=== PATIENT | female | born 1955 | race African-American/Black ===

== ENCOUNTER 2016-10-07 18:48 | Inpatient (IN) | payer MEDICARE, OTHER ==
[~2016-10-07] VITALS: Ht 165.1 cm; Wt 85.0 kg
[2016-10-07] VITALS (8 sets, daily range): BP systolic 74–126; BP diastolic 42–84; PULSE 62–76; RESP 16–20; TEMP 97.8–98.8; O2SAT 95–99
[2016-10-07] MEDS ORDERED: BENA25TA3 PO (19:17)
[2016-10-07] MEDS ORDERED: ASCOPOW5 (19:17)
[2016-10-07] MEDS ORDERED: FOLI5CAP PO (19:17)
[2016-10-07] MEDS ORDERED: MIRA33504 PO (19:19)
[2016-10-07] MEDS ORDERED: COLA100C3 PO (19:19)
[2016-10-07] MEDS ORDERED: FERR1TAB21 PO (19:19)
[2016-10-07] MEDS ORDERED: THERM PO (19:19)
[2016-10-07] MEDS ORDERED: SODIUM CHLOR 0.9% 1000 ML INJ 1,000 ML IV ONE (19:19)
[2016-10-07] MEDS ORDERED: OSCA200T PO (19:19)
[2016-10-07] MEDS ORDERED: SODIUM CHLORIDE 0.9% FLUSH 5 ML FLUSH IVF PRN (19:30)
--- NOTE | 2016-10-07 19:34 | PD ---
HPI Chief Complaint: Seizure Time Seen by Provider: 19:03 Travel History International Travel<30 days: No Contact w/Intl Traveler<30days: No Traveled to known affect area: No History of Present Illness HPI The patient 61 years old and arrives with an at home health technical healthcare consultant who the patient lives with. The patient was brought to the ER due to apparent syncope episodes. The patient stands up he becomes lightheaded and falls to the ground. Three episodes occurred a few days ago and have become more frequent with at least 6 falls occurring today according to the healthcare assistant professor of philosophy. The patient states she feels lightheaded as if she is going to lose consciousness immediately prior to each loss of consciousness associated with fall. She denies pain in the extremities hips knees and is ambulatory in ER. The patient will lay on the ground for a few seconds before waking up and then she is able to stand on her own. There is no history of epilepsy. Blood pressure measurements at home were markedly decreased However the baseline measurements reported as normal according to the health technical healthcare consultant. The patient offers no specific complaints in the ER at the moment. About 5 days prior she was discharged from a hospital in [place] following an inpatient admission for 1 year due to schizophrenia. There has been no change in medication. Pt denies SI/HI. PFSH Past Medical History ?: Not Social History Tobacco Use: No (quit smoking one year prior) Allergies-Medications (Allergen,Severity, Reaction): Coded Allergies: Penicillin (Verified Allergy, Intermediate, HIVES, 10/07/16) Reported Meds & Prescriptions Reported Meds & Active Scripts Active Reported Miralax Powder (Polyethylene Glycol 3350 Powder) 17 Gm Powd 17 Gm PO DAILY Mix and dissolve one measuring cap-ful (17 grams) in water or juice. Thera M Plus (Multivitamins/Minerals Therapeutic) 1 Tab 1 Tab PO DAILY Colace (Docusate Sodium) 100 Mg Cap 100 Mg PO DAILY Oscal 500/200 D-3 (Calcium Carbonate-Vitamin D) 500-200 Mg-Unit Tab 1 Tab PO BID Fergon (Ferrous Gluconate) 240 Mg Tab 324 Mg PO DAILY Take on an empty stomach 1 hr before or 2 hr after meals Ascorbic Acid (Ascorbic Acid (Bulk)) 1 Pow Pow 500 Mg .ROUTE Folic Acid 5 Mg Cap 1 Mg PO DAILY Benadryl Allergy (Diphenhydramine HCl) 25 Mg Tab 50 Mg PO Q6H PRN Review of Systems Except as stated in HPI: all other systems reviewed are Neg General / Constitutional: No: Fever, Chills Cardiovascular: No: Chest Pain or Discomfort, Palpitations, Diaphoresis Respiratory: No: Shortness of Breath Gastrointestinal: Positive: Constipation (chronic constipation), No: Nausea, Vomiting, Abdominal Pain Psychiatric: Positive: Other (hx schizophrenia) Physical Exam Narrative GENERAL: 61 Year-old female well-nourished well-developed, affect somewhat flat , alert and oriented 4 SKIN: Warm and dry. HEAD: Atraumatic. Normocephalic. EYES: Pupils equal and round. No scleral icterus. No injection or drainage. ENT: No nasal bleeding or discharge. Mucous membranes pink and moist. NECK: Trachea midline. No JVD. CARDIOVASCULAR: Regular rate and rhythm. No murmur appreciated. RESPIRATORY: No accessory muscle use. Clear to auscultation. Breath sounds equal bilaterally. GASTROINTESTINAL: Abdomen soft, non-tender, nondistended. Hepatic and splenic margins not palpable. MUSCULOSKELETAL: No obvious deformities. No clubbing. No cyanosis. No edema. NEUROLOGICAL: AOx4. CN III-XII normal. Motor function 5/5 throughout. Normal speech memory and mentation. PSYCHIATRIC: Cooperative. Affect is flat. No SI/HI. Data Data Last Documented VS Vital Signs Date Time Temp Pulse Resp B/P Pulse Ox O2 Delivery O2 Flow Rate FiO2 10/07/16 21:19 68 18 90/58 99 Room Air 10/07/16 19:09 98.8 Orders Electrocardiogram (10/07/16 19:19) Basic Metabolic Panel (Bmp) (10/07/16 19:19) Complete Blood Count With Diff (10/07/16 19:19) Magnesium (Mg) (10/07/16 19:19) Urinalysis - C+S If Indicated (10/07/16 19:19) Chest, Single Ap (10/07/16 19:19) Ct Brain W/O Iv Contrast(Rout) (10/07/16 19:19) Ecg Monitoring (10/07/16 19:19) Iv Access Insert/Monitor (10/07/16 19:19) Oximetry (10/07/16 19:19) Sodium Chloride 0.9% Flush (Ns Flush) (10/07/16 19:30) Sodium Chlor 0.9% 1000 Ml Inj (Ns 1000 M (10/07/16 19:19) Orthostatic Vital Signs (10/07/16 19:19) Admit Order (Ed Use Only) (10/07/16 21:16) Echo 2d Comp W/Dopp(Routine) (10/07/16 ) Place In Observation (10/07/16 ) Vital Signs (Adult) Q4H (10/07/16 21:17) Activity Oob With Assistance (10/07/16 21:17) Gold Stamper / Telemetry .CONTINUOUS (10/07/16 21:17) Intake + Output JENNIFER.QSHIFT (10/07/16 21:17) Diet Regular Basic (10/08/16 Breakfast) Sodium Chlor 0.9% 1000 Ml Inj (Ns 1000 M (10/07/16 21:17) Sodium Chloride 0.9% Flush (Ns Flush) (10/07/16 21:30) Sodium Chloride 0.9% Flush (Ns Flush) (10/08/16 09:00) Ondansetron Inj (Zofran Inj) (10/07/16 21:30) Bisacodyl Supp (Dulcolax Supp) (10/07/16 21:30) Comprehensive Metabolic Panel (10/08/16 06:00) Complete Blood Count With Diff (10/08/16 06:00) Troponin I (10/08/16 00:00) Troponin I (10/08/16 06:00) Pt Request For Service (10/07/16 21:17) Scd Bilateral/Knee High JENNIFER.BID (10/07/16 21:17) Mario Bilateral/Knee High JENNIFER.QSHIFT (10/07/16 21:17) Acetaminophen (Tylenol) (10/07/16 21:30) Labs Laboratory Tests Test 10/07/16 19:50 White Blood Count 6.0 TH/MM3 Red Blood Count 3.85 MIL/MM3 Hemoglobin 10.0 GM/DL Hematocrit 30.2 % Mean Corpuscular Volume 78.5 FL Mean Corpuscular Hemoglobin 26.0 PG Mean Corpuscular Hemoglobin 33.1 % Concent Red Cell Distribution Width 15.9 % Platelet Count 234 TH/MM3 Mean Platelet Volume 8.8 FL Neutrophils (%) (Auto) 64.0 % Lymphocytes (%) (Auto) 26.8 % Monocytes (%) (Auto) 8.3 % Eosinophils (%) (Auto) 0.2 % Basophils (%) (Auto) 0.7 % Neutrophils # (Auto) 3.9 TH/MM3 Lymphocytes # (Auto) 1.6 TH/MM3 Monocytes # (Auto) 0.5 TH/MM3 Eosinophils # (Auto) 0.0 TH/MM3 Basophils # (Auto) 0.0 TH/MM3 CBC Comment DIFF FINAL Differential Comment Sodium Level 142 MEQ/L Potassium Level 3.9 MEQ/L Chloride Level 109 MEQ/L Carbon Dioxide Level 26.6 MEQ/L Anion Gap 6 MEQ/L Blood Urea Nitrogen 25 MG/DL Creatinine 1.45 MG/DL Estimat Glomerular Filtration 37 ML/MIN Rate Random Glucose 132 MG/DL Calcium Level 8.7 MG/DL Magnesium Level 2.0 MG/DL MDM Medical Decision Making Medical Screen Exam Complete: Yes Emergency Medical Condition: Yes Differential Diagnosis Arrhythmia, dehydration, bradycardia, anemia, electrolyte imbalance, vasovagal events, intracranial hemorrhage Narrative Course CBC & BMP Diagram 10/07/16 19:50 Magnesium 2.0 EKG reveals a rate of 64 with a sinus rhythm normal axis and a NC interval of 226 Last [address] 10/07/161918 Signed Impressions: Service Date/Time: Friday, October 07, 2016 20:30 - CONCLUSION: 1. No evidence of acute hemorrhage or mass effect. 2. Right high frontal encephalomalacia suggesting old infarction. Prior aneurysm procedure with metallic artifact in the supraclinoid region. Brian Morse MD Chest X-Ray 10/07/161918 Signed Impressions: Service Date/Time: Friday, October 07, 2016 20:05 - CONCLUSION: The lungs are clear. Brian Morse MD Orthostatic vital signs were attempted in the ER however the patient was unable to stand for more than about 10 seconds before having to sit down due to lightheadedness. Patient has received 1 L normal saline and at 8:45 PM she is resting in bed with a pulse of 67 and a blood pressure of 86/58. The health halfway assistant professor of philosophy reports the patient's blood pressure is normal at baseline however could not give an exact value for her baseline blood pressure. Pt will be kept for monitoring and further evaluation of hypotension and apparent recurrent syncope episodes. Second liter NS ordered at time of admission. Diagnosis Primary Impression: Syncope and collapse Additional Impression: Hypotension Qualified Code: I95.9 - Hypotension, unspecified hypotension type Admitting Information Admitting Physician Requests: Observation Juvencio Parrish MD Oct 07, 2016 19:34
[2016-10-07 20:13] LABS: AUTOMATED NEUTROPHIL # 3.9 TH/MM3 (1.8-7.7); BASOPHIL % 0.7 % (0.0-2.0); EOSINOPHIL % 0.2 % (0.0-4.0); HEMATOCRIT 30.2 % (35.0-46.0); HEMO FLAGS DIFF FINAL; LYMPH % 26.8 % (9.0-44.0); LYMPHOCYTE # 1.6 TH/MM3 (1.0-4.8); MEAN CELL VOLUME 78.5 FL (80.0-100.0); MEAN CORPUSCULAR HGB CONC 33.1 % (32.0-36.0); MONO % 8.3 % (0.0-8.0); PLATELET COUNT 234 TH/MM3 (150-450); RED BLOOD COUNT 3.85 MIL/MM3 (4.00-5.30); RED CELL DISTRIBUTION WIDTH 15.9 % (11.6-17.2)
[2016-10-07 20:28] LABS: BICARBONATE 26.6 MEQ/L (21.0-32.0); POTASSIUM 3.9 MEQ/L (3.5-5.1)
--- NOTE | 2016-10-07 20:29 | RADRPT ---
EXAM DATE/TIME: 10/07/2016 20:05 [facility] COMPARISON: No previous studies available for comparison. INDICATIONS : Chest discomfort. MEDICAL HISTORY : None. SURGICAL HISTORY : None. ENCOUNTER: Initial ACUITY: 1 day PAIN SCORE: 5/10 LOCATION: Bilateral chest FINDINGS: A single view of the chest demonstrates the lungs to be symmetrically aerated without evidence of mas s, infiltrate or effusion. The cardiomediastinal contours are unremarkable. Osseous structures are intact. CONCLUSION: The lungs are clear. Brian Morse MD on October 07, 2016 at 20:27 Board Certified Radiologist. This report was verified electronically.
--- NOTE | 2016-10-07 20:56 | RADRPT ---
EXAM DATE/TIME: 10/07/2016 20:30 [facility] COMPARISON: No previous studies available for comparison. INDICATIONS : Trauma; possible seizure. RADIATION DOSE: 38.44 CTDIvol (mGy) MEDICAL HISTORY : Schizophrenia, aneurysm clipping SURGICAL HISTORY : Tubal ligation. ENCOUNTER: Initial ACUITY: 1 day PAIN SCALE: Non-responsive LOCATION: cranial TECHNIQUE: Multiple contiguous axial images were obtained of the head. Using automated exposure control and adj ustment of the mA and/or kV according to patient size, radiation dose was kept as low as reasonably a chievable to obtain optimal diagnostic quality images. FINDINGS: CEREBRUM: Metallic artifact in the left supraclinoid region from prior aneurysm procedure. There is a focal ar ea of encephalomalacia in the right mid and high convexity frontal region with ex vacuole enlargement of the frontal horn of the right ventricle. Otherwise, there is good hurtado-white matter differentiat ion in the supratentorial brain. No evidence of acute blood products, midline shift, or extra-axial fluid. POSTERIOR FOSSA: The cerebellum and brainstem are intact. The 4th ventricle is midline. The cerebellopontine angle i s unremarkable. EXTRACRANIAL: The visualized portion of the orbits is intact. SKULL: The calvaria is intact. No evidence of skull fracture. CONCLUSION: 1. No evidence of acute hemorrhage or mass effect. 2. Right high frontal encephalomalacia suggesting old infarction. Prior aneurysm procedure with meta llic artifact in the supraclinoid region. Brian Morse MD on October 07, 2016 at 20:53 Board Certified Radiologist. This report was verified electronically.
--- NOTE | 2016-10-07 21:20 | HHI.HP ---
[facility] Service [facility] Primary Care Physician Unknown Admission Diagnosis Syncope & Collapse, Hypotension Diagnoses: (1) Syncope Diagnosis: Principal (2) Orthostatic hypotension Diagnosis: Principal (3) Renal insufficiency Diagnosis: Principal (4) Schizophrenia Diagnosis: Principal (5) UTI (urinary tract infection) Diagnosis: Principal Travel History International Travel<30 Days: No Contact w/Intl Traveler <30 Da: No Traveled to Known Affected Are: No History of Present Illness This is a 61-year-old female with a PMH of Schizophrenia was brought to the ER by Home Health Yard Inspector with whom the patient lives secondary to multiple falls. History limited at this time as Caretakers unavailable and pt poor historian, however per report, pt recently discharged from [place] after 1yr hospitalization for Schizophrenia to the care of a local Healthcare Instrumentation Tech. Since her time there, pt has had multiple falls and syncopal episodes, 6 falls today alone. Pt without complaints at this time. On arrival , BP 74/42, HR 66, O2 sat 99% on RA, Afebrile. Orthostatic Vital Signs positive , supine BP 111/63, HR 60, sitting BP 86/61, HR 63, standing BP not measurable via cuff. S/p 2L IVF in ER, BP now improved to 126/84, HR 69. WBC normal. Hgb 10.0. Creatinine 1.45, no previous labs for comparison. UA trace LE, mild bacteruria. Review of Systems Other ROS: 14 point review of systems otherwise negative. Past Family Social History Past Medical History PMH: Schizophrenia Past Surgical History PAST SURGICAL HISTORY: Tubal Ligation Allergies: Coded Allergies: Penicillin (Verified Allergy, Intermediate, HIVES, 10/07/16) Family History PAST FAMILY HISTORY: Reviewed. No h/o DM or CAD Social History PAST SOCIAL HISTORY: Negative for alcohol, tobacco or drugs. Physical Exam Vital Signs Vital Signs Date Time Temp Pulse Resp B/P Pulse Ox O2 Delivery O2 Flow Rate FiO2 10/07/16 21:19 68 18 90/58 99 Room Air 10/07/16 19:24 64 18 111/63 63 18 86/61 60 18 10/07/16 19:23 18 96 Room Air 10/07/16 19:19 63 18 98 Room Air 10/07/16 19:09 98.8 62 16 86/54 95 10/07/16 18:53 97.8 66 20 74/42 99 Room Air Physical Exam PE: GENERAL: Very pleasant middle-aged black female in no acute distress, slightly juvenile, smiling, +stutter. HEENT: PERRLA, EOMI. No scleral icterus or conjunctival pallor. No lid lag or facial droop. CARDIOVASCULAR: Regular rate and rhythm. No obvious murmurs to auscultation. No chest tenderness to palpation. RESPIRATORY: No obvious rhonchi or wheezing. Clear to auscultation. Breath sounds equal bilaterally. GASTROINTESTINAL: Abdomen soft, non-tender, nondistended. BS normal. MUSCULOSKELETAL: Extremities without clubbing, cyanosis, or edema. No obvious deformities. NEUROLOGICAL: Awake, alert and oriented x4. No focal neurologic deficits. Moving both upper and lower extremities spontaneously. Laboratory Laboratory Tests Test 10/07/16 19:50 White Blood Count 6.0 Red Blood Count 3.85 Hemoglobin 10.0 Hematocrit 30.2 Mean Corpuscular Volume 78.5 Mean Corpuscular Hemoglobin 26.0 Mean Corpuscular Hemoglobin 33.1 Concent Red Cell Distribution Width 15.9 Platelet Count 234 Mean Platelet Volume 8.8 Neutrophils (%) (Auto) 64.0 Lymphocytes (%) (Auto) 26.8 Monocytes (%) (Auto) 8.3 Eosinophils (%) (Auto) 0.2 Basophils (%) (Auto) 0.7 Neutrophils # (Auto) 3.9 Lymphocytes # (Auto) 1.6 Monocytes # (Auto) 0.5 Eosinophils # (Auto) 0.0 Basophils # (Auto) 0.0 CBC Comment DIFF FINAL Differential Comment Sodium Level 142 Potassium Level 3.9 Chloride Level 109 Carbon Dioxide Level 26.6 Anion Gap 6 Blood Urea Nitrogen 25 Creatinine 1.45 Estimat Glomerular Filtration 37 Rate Random Glucose 132 Calcium Level 8.7 Magnesium Level 2.0 Result Diagram: 10/07/16194910/07/161949 Assessment and Plan Problem List: (1) Syncope ICD Code: R55 Status: Acute (2) Orthostatic hypotension ICD Code: I95.1 Status: Acute (3) Renal insufficiency ICD Code: N28.9 Status: Acute (4) UTI (urinary tract infection) ICD Code: N39.0 Status: Acute (5) Schizophrenia ICD Code: F20.9 Status: Acute Assessment and Plan A/P: 1. Syncope: likely vasovagal secondary to dehydration/orthostatic hypotension. CT Head w/ no acute findings, images reviewed by me. Admit for Observation, place on telemetry. Check Echo. Initial trop negative, check serial cardiac enzymes for trend. 2. Orthostatic Hypotension: +orthostatic vitals signs, secondary to dehydration. s/p 2L IVF w/ significant improvement in BP from 80's systolic, now 126/84, HR 69. Continue w/ IVF. 3. Renal Insufficiency: Creatinine 1.45, no previous labs for comparison, presumably new. IVF, repeat labs in am. 4. UTI: U/a w/ UTI, start IV Cipro, continue w/ IVF. 5. Schizophrenia: Per report, pt recently d/c'd from [place] after 1yr hospitalization for Schizophrenia 5 days ago, currently under the care of local Healthcare Associate. Not on antipsychotic medications per review of home meds. 6. DVT Prophylaxis: SCD/Teds. 7. Social work for d/c planning as needed. 8. Case discussed w/ ER physician at length. Viviana Bonds MD Oct 07, 2016 21:20
[2016-10-07] MEDS: SODIUM CHLOR 0.9% 1000 ML INJ 1,000 ML IV SCH (21:30)
[2016-10-07] MEDS ORDERED: SODIUM CHLORIDE 0.9% FLUSH 5 ML FLUSH FLUSH PRN (21:30)
[2016-10-07] MEDS ORDERED: BISACODYL 10 MG SUPP PR PRN (21:30)
[2016-10-07 23:34] LABS: BACTERIA, URINE OCC /hpf; BLOOD, URINE NEG (NEG); COMMENT (UR) CULT NOT INDICATED; CULTURE IF INDICATED CULT NOT INDICATED; GLUCOSE,URINE NEG (NEG); HYALINE CAST, URINE 1 /lpf (RARE); KETONE, URINE NEG (NEG); MUCUS URINE FEW /lpf (OCC); NITRITE,URINE NEG (NEG); PH, URINE 5.5 (5.0-8.5); SQUAMOUS EPITHELIAL CELL URINE 2 /hpf (0-5); URINE COLOR YELLOW (YELLW/STRAW)
[2016-10-08 03:36] VITALS: BP 106/64; PULSE 80; RESP 19; TEMP 98.2; O2SAT 96
[2016-10-08] MEDS: SODIUM CHLOR 0.9% 1000 ML INJ 1,000 ML IV SCH ×2 (07:17→17:17)
[2016-10-08 07:47] VITALS: BP 122/66; PULSE 69; RESP 17; TEMP 97.7; O2SAT 97
[2016-10-08 08:48] LABS: AUTOMATED NEUTROPHIL # 2.9 TH/MM3 (1.8-7.7); BASOPHIL % 0.7 % (0.0-2.0); EOSINOPHIL % 0.1 % (0.0-4.0); HEMATOCRIT 27.4 % (35.0-46.0); HEMO FLAGS DIFF FINAL; LYMPH % 31.8 % (9.0-44.0); LYMPHOCYTE # 1.6 TH/MM3 (1.0-4.8); MEAN CELL VOLUME 78.1 FL (80.0-100.0); MEAN CORPUSCULAR HEMOGLOBIN 26.5 PG (27.0-34.0); MEAN CORPUSCULAR HGB CONC 33.9 % (32.0-36.0); MONO % 9.9 % (0.0-8.0); NEUT % 57.5 % (16.0-70.0); PLATELET COUNT 213 TH/MM3 (150-450); RED BLOOD COUNT 3.51 MIL/MM3 (4.00-5.30); RED CELL DISTRIBUTION WIDTH 15.8 % (11.6-17.2); WHITE BLOOD COUNT 5.1 TH/MM3 (4.0-11.0)
[2016-10-08] MEDS: SODIUM CHLORIDE 0.9% FLUSH 5 ML FLUSH FLUSH SCH ×2 (09:00→21:00)
[2016-10-08 09:15] LABS: ALKALINE PHOSPHATASE 99 U/L (45-117); ALT (GPT) 16 U/L (10-53); ANION GAP 8 MEQ/L (5-15); AST (GOT) 8 U/L (15-37); BICARBONATE 24.7 MEQ/L (21.0-32.0); BLOOD UREA NITROGEN 16 MG/DL (7-18); CHLORIDE 111 MEQ/L (98-107); GLOMERULAR FILTRATION RATE 63 ML/MIN (>89); POTASSIUM 3.7 MEQ/L (3.5-5.1); SODIUM (NA) 144 MEQ/L (136-145); TOTAL BILIRUBIN ADULT 0.2 MG/DL (0.2-1.0)
--- NOTE | 2016-10-08 10:21 | HHI.PR ---
Subjective Remarks Follow up for multiple falls, dehydration, ALFONSO, possible UTI. The patient has no specific medical complaints. Denies any fevers/chills, headache, lightheadedness, chest pain, shortness of breath, or abdominal pain. She complains of frequent urination however no dysuria or urgency. She has not yet ambulated today. Objective Vitals Vital Signs Date Time Temp Pulse Resp B/P Pulse Ox O2 Delivery O2 Flow Rate FiO2 10/08/16 07:47 97.7 69 17 122/66 97 10/08/16 03:36 98.2 80 19 106/64 96 10/07/16 23:18 98.0 74 18 119/74 97 10/07/16 22:49 76 18 126/84 96 Room Air 10/07/16 22:04 69 18 126/84 96 Room Air 10/07/16 21:19 68 18 90/58 99 Room Air 10/07/16 19:24 64 18 111/63 63 18 86/61 60 18 10/07/16 19:23 18 96 Room Air 10/07/16 19:19 63 18 98 Room Air 10/07/16 19:09 98.8 62 16 86/54 95 10/07/16 18:53 97.8 66 20 74/42 99 Room Air Result Diagram: 10/08/16 0816 10/08/16 0816 Imaging Last Impressions Head CT 10/07/161918 Signed Impressions: Service Date/Time: Friday, October 07, 2016 20:30 - CONCLUSION: 1. No evidence of acute hemorrhage or mass effect. 2. Right high frontal encephalomalacia suggesting old infarction. Prior aneurysm procedure with metallic artifact in the supraclinoid region. Brian Morse MD Chest X-Ray 10/07/161918 Signed Impressions: Service Date/Time: Friday, October 07, 2016 20:05 - CONCLUSION: The lungs are clear. Brian Morse MD Objective Remarks GENERAL: Well-nourished, well-developed pleasant middle aged AA female patient in NAD. SKIN: Warm and dry. No rash. HEAD: Normocephalic. Atraumatic. EYES: Pupils equal and round. No scleral icterus. No injection or drainage. ENT: No nasal bleeding or discharge. Mucous membranes pink and moist. NECK: Supple. Trachea midline. CARDIOVASCULAR: Regular rate and rhythm. S1, S2 noted. No murmur appreciated. RESPIRATORY: No accessory muscle use. Clear to auscultation. Breath sounds equal bilaterally. GASTROINTESTINAL: Abdomen soft, non-tender, nondistended. Normoactive bowel sounds x4. MUSCULOSKELETAL: No obvious deformities. Extremities without clubbing, cyanosis , or edema. NEUROLOGICAL: Awake and alert. No obvious cranial nerve deficits. Motor grossly within normal limits. 5/5 muscle strength in bilateral upper and lower extremities. Normal speech. Medications and IVs Current Medications Medications (Trade) Dose Ordered Sig/Willi Route Start Time Stop Time Status Last Admin (NS 1000 ml Inj) 1,000 ml @ 100 mls/hr Q10H IV 10/07/16 21:17 10/07/16 21:30 (NS Flush) 2 ml UNSCH PRN FLUSH 10/07/16 21:30 (NS Flush) 2 ml BID FLUSH 10/08/16 09:00 (Zofran Inj) 4 mg Q6H PRN IVP 10/07/16 21:30 (Dulcolax Supp) 10 mg DAILY PRN FL 10/07/16 21:30 Acetaminophen 650 mg 650 mg Q6H PRN PO 10/07/16 21:30 (Cipro 400 Mg Premix) 200 ml @ 200 mls/hr Q12H IV 10/09/16 00:00 A/P Problem List: (1) Syncope ICD Code: R55 Status: Acute (2) Orthostatic hypotension ICD Code: I95.1 Status: Acute (3) Renal insufficiency ICD Code: N28.9 Status: Acute (4) UTI (urinary tract infection) ICD Code: N39.0 Status: Acute (5) Schizophrenia ICD Code: F20.9 Status: Acute Assessment and Plan 61-year-old female with a PMH of Schizophrenia was brought to the ER by Home Health Head Host/Hostess with whom the patient lives secondary to multiple falls. Syncope: likely vasovagal secondary to dehydration/orthostatic hypotension. CT Head w/ no acute findings, images reviewed by me. Admit for Observation, monitor on telemetry. Check Echo. ACS ruled out with negative serial cardiac enzymes x2, and EKG without acute ST changes; however EKG does show possible 1st degree AV block, repeat EKG. Orthostatic Hypotension: +orthostatic vitals signs, secondary to dehydration. S /p 2L IVF w/ significant improvement in BP from 80's systolic, now 126/84, HR 69. Continue w/ IVF. Repeat orthostatics. Renal Insufficiency: Creatinine 1.45, no previous labs for comparison, presumably new. IVF, repeat labs today show improvement, Cr 1.08. Avoid nephrotoxins. UTI: U/a w/ UTI, start IV Cipro, continue w/ IVF. Mandatory urine culture ordered. Schizophrenia: Per report, pt recently d/c'd from [place] after 1yr hospitalization for Schizophrenia 5 days ago, currently under the care of local Healthcare Associate. Not on antipsychotic medications per review of home meds. DVT Prophylaxis: SCD/Teds. Written by Stefania Kwong, acting as scribe for Dr. Jean Baptiste on 10/08/16 at 10:19. The documentation accurately reflects the work performed [id number] by me Dr. Jean Baptiste on 10/08/16 at 10:19. Stefania Kwong PA-C Oct 08, 2016 10:21 Ingris Jean Baptiste MD Oct 08, 2016 14:29
[2016-10-08 12:15] VITALS: BP 126/70; PULSE 88; RESP 17; TEMP 98; O2SAT 95
--- NOTE | 2016-10-08 12:26 | EKG ---
Date Performed: 10/07/2016 Time Performed: 19:58:12 PTAGE: 61 years EKG: Sinus rhythm WITH FIRST DEGREE AV BLOCK NONSPECIFIC T-WAVE ABNORMALITY ABNORMAL ECG NO PREVIOUS TRACING DOCTOR: Julián Rojas Interpretating Date/Time 10/08/2016 12:24:59
[2016-10-08 15:24] VITALS: BP_SYST 122; BP_SYST 79; BP_DIAS 59; BP_DIAS 80; PULSE 77; RESP 18; TEMP 98; O2SAT 98
[2016-10-08 20:00] VITALS: BP 137/82; PULSE 71; RESP 18; TEMP 98.2; O2SAT 100
--- NOTE | 2016-10-08 21:05 | EKG ---
Date Performed: 10/08/2016 Time Performed: 17:14:59 PTAGE: 61 years EKG: Sinus rhythm WITH FIRST DEGREE AV BLOCK LOW QRS VOLTAGE IN PRECORDIAL LEADS NONSPECIFIC T-WAVE ABNORMALITY ABNORM AL ECG NO PREVIOUS TRACING DOCTOR: Tad Miller Interpretating Date/Time 10/08/2016 21:04:57
--- NOTE | 2016-10-08 23:01 | EC ---
Study Study Date:10/08/2016 STUDY CONCLUSIONS SUMMARY LEFT VENTRICLE: The cavity size was normal. Wall thickness was normal. Systolic function was normal. The estimated ejection fraction was 55%. Wall motion was normal; there were no regional wall motion abnormalities. If LV function is below 40, please consider prescribing an ACEI or ARB or document rationale for non-use. PROCEDURE DATA STUDY STATUS: Elective. Procedure: Transthoracic echocardiography. Image quality was good. Scanning was performed from the parasternal, apical, and subcostal acoustic windows. Study completion: The patient tolerated the procedure well. Transthoracic echocardiography. M-mode, complete 2D, complete spectral Doppler, and color Doppler. Patient status: Inpatient. CARDIAC ANATOMY LEFT VENTRICLE: The cavity size was normal. Wall thickness was normal. Systolic function was normal. The estimated ejection fraction was 55%. Wall motion was normal; there were no regional wall motion abnormalities. AORTIC VALVE: Trileaflet; normal thickness leaflets. Doppler: Transvalvular velocity was within the normal range. There was no stenosis. No regurgitation. AORTA: Aortic root: The aortic root was normal in size. MITRAL VALVE: Structurally normal valve. Doppler: Transvalvular velocity was within the normal range. There was no evidence for stenosis. No regurgitation. LEFT ATRIUM: The atrium was normal in size. RIGHT VENTRICLE: The cavity size was normal. Wall thickness was normal. PULMONIC VALVE: Doppler: Transvalvular velocity was within the normal range. There was no evidence for stenosis. No regurgitation. TRICUSPID VALVE: Structurally normal valve. Doppler: Transvalvular velocity was within the normal range. Trace regurgitation. PULMONARY ARTERY: The main pulmonary artery was normal-sized. Systolic pressure was within the normal range. RIGHT ATRIUM: The atrium was normal in size. PERICARDIUM: There was no pericardial effusion. SYSTEMIC VEINS: Inferior vena cava: The vessel was normal in size. BASIC MEASUREMENTS ADULT Normal Left ventricle LV internal dimension, ED, chordal level, *41 mm 43-52 PLAX LV posterior wall thickness, ED 7.32 mm IVS/LVPW ratio, ED *1.36 <1.3 Ventricular septum Septal thickness, ED 9.97 mm Aortic valve Leaflet separation 22 mm 15-26 Left atrium Anterior-posterior dimension 36 mm Right ventricle RV internal dimension, ED, PLAX 19.5 mm 19-38 BASIC MEASUREMENTS ADULT Normal Aortic valve Leaflet separation 22 mm 15-26 Aorta Root diameter, ED 34 mm 20-37 Left atrium Anterior-posterior dimension, ES 31 mm 19-40 LA/aortic root ratio 0.91 DOPPLER MEASUREMENTS ADULT Normal Main pulmonary artery Pressure, S 30 mm Hg =30 Mitral valve Peak E-wave velocity 60.7 cm/s Peak A-wave velocity 72.1 cm/s Peak E/A ratio 0.8 Tricuspid valve Regurgitant peak velocity 188 cm/s Peak RV-RA gradient, S 14 mm Hg Maximal regurgitant velocity 188 cm/s Systemic veins Estimated CVP 10 mm Hg Right ventricle RV pressure, S *30 mm Hg <30 LEGEND: Mean values are shown as u=mean value. Asterisk (*) morrison values outside specified normal range. Prepared and signed by Hadley Baldwin [id number]
[2016-10-08 23:24] VITALS: BP_SYST 149; BP_SYST 60; BP_SYST 99; BP_DIAS 40; BP_DIAS 52; BP_DIAS 74
[2016-10-09] VITALS (10 sets, daily range): BP systolic 64–157; BP diastolic 40–96; PULSE 67–78; RESP 17–21; TEMP 97.6–98.8; O2SAT 95–98
[2016-10-09] MEDS: CIPROFLOXACIN 400 MG PREMIX 200 ML IV SCH ×2 (00:29→12:54)
[2016-10-09 11:10] LABS: MEAN CELL VOLUME 78.3 FL (80.0-100.0); MEAN CORPUSCULAR HGB CONC 33.2 % (32.0-36.0); PLATELET COUNT 201 TH/MM3 (150-450); RED BLOOD COUNT 3.45 MIL/MM3 (4.00-5.30); RED CELL DISTRIBUTION WIDTH 15.7 % (11.6-17.2); REVIEW FLAG FINAL
--- NOTE | 2016-10-09 11:15 | HHI.PR ---
Subjective Remarks Follow up for multiple falls with possible syncope. The patient is severely orthostatic. She admits to feeling very lightheaded and weak only upon standing. She feels her legs are also weak. She denies any pain. Denies any headache. She is otherwise feeling well. Denies abdominal pain/nausea/vomiting. Tolerating oral intake. Objective Vitals Vital Signs Date Time Temp Pulse Resp B/P Pulse Ox O2 Delivery O2 Flow Rate FiO2 10/09/16 07:49 98.3 71 19 135/95 97 10/09/16 04:00 97.6 78 18 140/78 98 10/09/16 00:11 98.8 77 21 102/73 98 64/40 10/08/16 23:24 149/74 99/52 60/40 10/08/16 20:00 98.2 71 18 137/82 100 10/08/16 15:24 98.0 77 18 122/59 98 79/80 10/08/16 12:15 98.0 88 17 126/70 95 I/O 10/08/16 10/08/16 10/08/16 10/09/16 10/09/16 10/09/16 07:00 15:00 23:00 07:00 15:00 23:00 Intake Total 1300 ml Balance 1300 ml Intake Oral 800 ml IV Total 500 ml # Voids 1 6 # Bowel Movements 0 Result Diagram: 10/09/16 1056 10/08/16 0816 Imaging Last Impressions Head CT 10/07/161918 Signed Impressions: Service Date/Time: Friday, October 07, 2016 20:30 - CONCLUSION: 1. No evidence of acute hemorrhage or mass effect. 2. Right high frontal encephalomalacia suggesting old infarction. Prior aneurysm procedure with metallic artifact in the supraclinoid region. Brian Morse MD Chest X-Ray 10/07/161918 Signed Impressions: Service Date/Time: Friday, October 07, 2016 20:05 - CONCLUSION: The lungs are clear. Brian Morse MD Objective Remarks GENERAL: Well-nourished, well-developed pleasant middle aged AA female patient in [facility]. SKIN: Warm and dry. No rash. HEAD: Normocephalic. Atraumatic. EYES: Pupils equal and round. No scleral icterus. No injection or drainage. ENT: No nasal bleeding or discharge. Mucous membranes pink and moist. NECK: Supple. Trachea midline. CARDIOVASCULAR: Regular rate and rhythm. S1, S2 noted. No murmur appreciated. RESPIRATORY: No accessory muscle use. Clear to auscultation. Breath sounds equal bilaterally. GASTROINTESTINAL: Abdomen soft, non-tender, nondistended. Normoactive bowel sounds x4. MUSCULOSKELETAL: No obvious deformities. Extremities without clubbing, cyanosis , or edema. NEUROLOGICAL: Awake and alert. No obvious cranial nerve deficits. Motor grossly within normal limits. 5/5 muscle strength in bilateral upper and lower extremities. Normal speech. Medications and IVs Current Medications Medications (Trade) Dose Ordered Sig/Willi Route Start Time Stop Time Status Last Admin (NS 1000 ml Inj) 1,000 ml @ 100 mls/hr Q10H IV 10/07/16 21:17 10/08/16 17:17 (NS Flush) 2 ml UNSCH PRN FLUSH 10/07/16 21:30 (NS Flush) 2 ml BID FLUSH 10/08/16 09:00 (Zofran Inj) 4 mg Q6H PRN IVP 10/07/16 21:30 (Dulcolax Supp) 10 mg DAILY PRN IN 10/07/16 21:30 Acetaminophen 650 mg 650 mg Q6H PRN PO 10/07/16 21:30 (Cipro 400 Mg Premix) 200 ml @ 200 mls/hr Q12H IV 10/09/16 00:00 10/09/16 00:29 (Proamatine) 5 mg TID@07,12,17 PO 10/09/16 12:00 Urinary Catheter: No Vascular Central Line Catheter: No A/P Problem List: (1) Syncope ICD Code: R55 Status: Acute (2) Orthostatic hypotension ICD Code: I95.1 Status: Acute (3) Renal insufficiency ICD Code: N28.9 Status: Acute (4) UTI (urinary tract infection) ICD Code: N39.0 Status: Acute (5) Schizophrenia ICD Code: F20.9 Status: Acute Assessment and Plan 61-year-old female with a PMH of Schizophrenia was brought to the ER by Home Health Medical Support Specialist with whom the patient lives secondary to multiple falls. Syncope: likely vasovagal with dehydration and severe orthostatic hypotension. CT Head w/ no acute findings, images reviewed by me. Admit for Observation, monitor on telemetry. Echo unremarkable, EF 55%. ACS ruled out with negative serial cardiac enzymes x2, and EKG without acute ST changes. Severe Orthostatic Hypotension: +orthostatic vitals signs. S/p 2L IVF w/ significant improvement in BP from 80's systolic, now 126/84, HR 69. Continue w / IVF. Repeat orthostatics still with significant BP drop upon standing. Started on Midodrine. Continue yisel hose. 1st Degree AV Block: EKG does show 1st degree AV block, since symptoms more likely related to orthostatic hypotension, will continue to treat hypotension and if still symptomatic, consider cardiology consult for pacemaker. Renal Insufficiency: Creatinine 1.45, no previous labs for comparison, presumably new. IVF, repeat labs today show improvement, Cr 1.08. Avoid nephrotoxins. UTI: U/a w/ UTI, start IV Cipro, change to po Cipro today. Mandatory urine culture ordered. Schizophrenia: Per report, pt recently d/c'd from [place] after 1yr hospitalization for Schizophrenia 5 days ago, currently under the care of local Healthcare Associate. Not on antipsychotic medications per review of home meds. Patient calm and pleasant throughout admission. DVT Prophylaxis: SCD/Teds. Written by Stefania Kwong, acting as scribe for Dr. Jean Baptiste on 10/09/16 at 11:15. The documentation accurately reflects the work performed [id number] by me Dr. Jean Baptiste on 10/09/16 at 11:15. Stefania Kwong PA-C Oct 09, 2016 11:15 Ingris Jean Baptiste MD Oct 09, 2016 14:57
[2016-10-09 11:29] LABS: BICARBONATE 26.1 MEQ/L (21.0-32.0); POTASSIUM 3.9 MEQ/L (3.5-5.1)
[2016-10-09] MEDS: MIDODRINE 5 MG TAB PO SCH ×2 (12:53→17:29)
[2016-10-09] MEDS: SODIUM CHLORIDE 0.9% FLUSH 5 ML FLUSH FLUSH SCH ×2 (12:54→20:32)
[2016-10-09] MEDS: SODIUM CHLOR 0.9% 1000 ML INJ 1,000 ML IV SCH ×3 (12:54→23:17)
[2016-10-10 02:05] LABS: BICARBONATE 27.1 MEQ/L (21.0-32.0); MAGNESIUM 1.5 MG/DL (1.5-2.5); POTASSIUM 3.5 MEQ/L (3.5-5.1)
[2016-10-10 06:09] VITALS: PULSE 64; RESP 18; TEMP 98.5; O2SAT 98
[2016-10-10] MEDS: MIDODRINE 5 MG TAB PO SCH ×3 (07:24→17:34)
[2016-10-10] MEDS: SODIUM CHLORIDE 0.9% FLUSH 5 ML FLUSH FLUSH SCH ×2 (07:24→20:23)
[2016-10-10 08:00] VITALS: PULSE 64
[2016-10-10 08:25] VITALS: BP_SYST 113; BP_SYST 114; BP_DIAS 52; BP_DIAS 90; PULSE 66; RESP 18; TEMP 98.2; O2SAT 96
--- NOTE | 2016-10-10 09:33 | HHI.PR ---
Subjective Remarks Follow-up orthostatic hypotension. The patient is sitting up in bed eating breakfast. She denies any lightheadedness at this time. Does report some episodes of lightheadedness. She denies any headache or vision changes. She denies any chest pain, shortness breath, nausea, vomiting. Objective Vitals Vital Signs Date Time Temp Pulse Resp B/P Pulse Ox O2 Delivery O2 Flow Rate FiO2 10/10/16 08:25 98.2 66 18 113/52 96 114/90 10/10/16 06:09 98.5 64 18 98 10/09/16 23:17 98.7 69 18 157/93 98 10/09/16 20:02 67 10/09/16 19:41 98.7 73 18 136/96 98 10/09/16 15:41 98.3 73 17 130/75 96 10/09/16 15:00 73 10/09/16 14:03 70 10/09/16 12:09 98.4 71 18 122/78 95 72/49 83/42 Result Diagram: 10/09/16 1056 10/10/16 0132 Imaging Last Impressions Head CT 10/07/161918 Signed Impressions: Service Date/Time: Friday, October 07, 2016 20:30 - CONCLUSION: 1. No evidence of acute hemorrhage or mass effect. 2. Right high frontal encephalomalacia suggesting old infarction. Prior aneurysm procedure with metallic artifact in the supraclinoid region. Brian Morse MD Chest X-Ray 10/07/161918 Signed Impressions: Service Date/Time: Friday, October 07, 2016 20:05 - CONCLUSION: The lungs are clear. Brian Morse MD Objective Remarks GENERAL: Well-developed well-nourished. In no acute distress. Sitting up eating breakfast. SKIN: Warm and dry. No lesions noted. HEENT: Normocephalic. Pupils equal and round. Mucous membranes pink and moist. CARDIOVASCULAR: Regular rate and rhythm. No murmur appreciated. RESPIRATORY: No accessory muscle use. Clear to auscultation. Breath sounds equal bilaterally. GASTROINTESTINAL: Abdomen soft, non-tender, nondistended. Bowel sounds x4. MUSCULOSKELETAL: No obvious deformities. No clubbing or cyanosis. No edema. NEUROLOGICAL: Awake and alert. No focal neurological deficits. Moves upper and lower extremities spontaneously. Normal speech. PSYCHIATRIC: Guarded mood and affect; insight and judgment fair to normal. A/P Problem List: (1) Syncope ICD Code: R55 Status: Acute (2) Orthostatic hypotension ICD Code: I95.1 Status: Acute (3) Renal insufficiency ICD Code: N28.9 Status: Acute (4) UTI (urinary tract infection) ICD Code: N39.0 Status: Acute (5) Schizophrenia ICD Code: F20.9 Status: Chronic Assessment and Plan 61-year-old female with a PMH of Schizophrenia was brought to the ER by Home Health Service Manager with whom the patient lives secondary to multiple falls. Syncope: likely vasovagal with dehydration and severe orthostatic hypotension as below. CT Head w/ no acute findings. Echo unremarkable, EF 55%. ACS ruled out with negative serial cardiac enzymes x2, and EKG without acute ST changes. PT recommends HHC vs SNF, will ambulate patient again when orthostatics improved. Severe Orthostatic Hypotension: +orthostatic vitals signs, dropping to systolic 60s. Continue w/ IVF. Repeat orthostatics still with significant BP drop upon standing. Started on Midodrine, BP is improving. MAURO lewis. 1st Degree AV Block: EKG does show 1st degree AV block, since symptoms more likely related to orthostatic hypotension, however if the patient remains symptomatic after treatment, consider cardiology consult for pacemaker. ALFONSO: Creatinine 1.45, no previous labs for comparison. Given IVF, repeat labs show improvement, Cr 1.08. Avoid nephrotoxins. UTI: U/a w/ UTI, started IV Cipro, changed to po. Mandatory urine culture ordered and pending. Schizophrenia: Per report, pt recently d/c'd from [place] after 1yr hospitalization for Schizophrenia 5 days ago, currently under the care of local Healthcare Associate. Not on antipsychotic medications per review of home meds. Patient calm and pleasant throughout admission. DVT Prophylaxis: SCD/Teds. Written by James Worthy, acting as scribe for Dr. Jean Baptiste on 10/10/16 at 09:33. The documentation accurately reflects the work performed [id number] by me Dr. Jean Baptiste on 10/10/16 at 09:33. Discharge Planning Possible DC with HHC if symptoms continue to improve. James Worthy Oct 10, 2016 09:33 Ingris Jean Baptiste MD Oct 10, 2016 14:02
[2016-10-10 11:25] VITALS: BP 125/78; PULSE 67; RESP 18; TEMP 98.2; O2SAT 96
[2016-10-10] MEDS: SODIUM CHLOR 0.9% 1000 ML INJ 1,000 ML IV SCH ×2 (11:40→19:17)
[2016-10-10] MEDS: CIPROFLOXACIN 400 MG PREMIX 200 ML IV SCH ×2 (11:40)
--- NOTE | 2016-10-10 14:48 | EKG ---
Date Performed: 10/09/2016 Time Performed: 23:11:47 PTAGE: 61 years EKG: Sinus rhythm WITH FIRST DEGREE AV BLOCK NONSPECIFIC T-WAVE ABNORMALITY ABNORMAL ECG Tremor artifact in precordial leads but I cannot entirely exclude atrial flutter. Repeat tracing is advised. Except for what I arben pect is artifact there has been no serial change since the prior tracing. PREVIOUS TRACING : 10/08/2016 17.14 DOCTOR: Layne Pena Interpretating Date/Time 10/10/2016 14:47:38
[2016-10-10 15:00] VITALS: PULSE 68
[2016-10-10 15:38] VITALS: BP 98/77; PULSE 87; RESP 18; TEMP 98.2; O2SAT 94
[2016-10-11] MEDS: CIPROFLOXACIN 400 MG PREMIX 200 ML IV SCH
[2016-10-11 04:00] VITALS: BP 133/65; PULSE 99; RESP 18; TEMP 97.9; O2SAT 93
[2016-10-11] MEDS: SODIUM CHLOR 0.9% 1000 ML INJ 1,000 ML IV SCH ×3 (04:32→22:20)
[2016-10-11] MEDS: MIDODRINE 5 MG TAB PO SCH ×3 (06:05→19:42)
[2016-10-11 08:04] VITALS: BP_SYST 123; BP_SYST 133; BP_DIAS 60; BP_DIAS 70; RESP 20; O2SAT 96
[2016-10-11] MEDS: SODIUM CHLORIDE 0.9% FLUSH 5 ML FLUSH FLUSH SCH ×2 (09:03→22:17)
--- NOTE | 2016-10-11 10:32 | HHI.PR ---
Subjective Remarks Follow-up for orthostatic dizziness. The patient tried to get out of bed with the nurse yesterday, but was unsteady from dizziness. She states that she is dizzy whenever she tries to sit or stand, including sitting up in bed to eat. When lying flat she denies any symptoms. She denies any vision changes. Objective Vitals Vital Signs Date Time Temp Pulse Resp B/P Pulse Ox O2 Delivery O2 Flow Rate FiO2 10/11/16 08:04 20 123/70 96 133/60 10/11/16 04:00 97.9 99 18 133/65 93 10/10/16 15:38 98.2 87 18 98/77 94 10/10/16 15:00 68 10/10/16 11:25 98.2 67 18 125/78 96 Result Diagram: 10/09/16 1056 10/10/16 0132 Imaging Last Impressions Head CT 10/07/161918 Signed Impressions: Service Date/Time: Friday, October 07, 2016 20:30 - CONCLUSION: 1. No evidence of acute hemorrhage or mass effect. 2. Right high frontal encephalomalacia suggesting old infarction. Prior aneurysm procedure with metallic artifact in the supraclinoid region. Brian Morse MD Chest X-Ray 10/07/161918 Signed Impressions: Service Date/Time: Friday, October 07, 2016 20:05 - CONCLUSION: The lungs are clear. Brian Morse MD Objective Remarks GENERAL: Well-developed well-nourished. In no acute distress. SKIN: Warm and dry. No lesions noted. HEENT: Normocephalic. Pupils equal and round. EOMs intact. Mucous membranes pink and moist. CARDIOVASCULAR: Regular rate and rhythm. No murmur appreciated. RESPIRATORY: No accessory muscle use. Clear to auscultation. Breath sounds equal bilaterally. GASTROINTESTINAL: Abdomen soft, non-tender, nondistended. Bowel sounds x4. MUSCULOSKELETAL: No obvious deformities. No clubbing or cyanosis. No edema. NEUROLOGICAL: Awake and alert. No focal neurological deficits. Moves upper and lower extremities spontaneously. Normal speech. Strength 5/5. PSYCHIATRIC: Pleasant mood and slightly guarded affect; insight and judgment fair to normal. A/P Problem List: (1) Syncope ICD Code: R55 Status: Acute (2) Orthostatic hypotension ICD Code: I95.1 Status: Acute (3) Renal insufficiency ICD Code: N28.9 Status: Acute (4) Schizophrenia ICD Code: F20.9 Status: Chronic Assessment and Plan 61-year-old female with a PMH of Schizophrenia was brought to the ER by Home Health Cabinetmaker Supervisor with whom the patient lives secondary to multiple falls. Syncope: likely vasovagal with dehydration and severe orthostatic hypotension as below. CT Head showed no acute findings, right high frontal encephalomalacia , prior aneurysm procedure with metallic artifact. Echo unremarkable, EF 55%. ACS ruled out with negative serial cardiac enzymes x2, and EKG without acute ST changes. PT recommends HHC vs SNF, will ambulate patient again when orthostatics improved. Check carotid ultrasound and Holter with continued symptoms. Unable to perform MRI with aneurysm clip. If workup remains negative and patient remains symptomatic, consider neurology consultation Severe Orthostatic Hypotension: +orthostatic vitals signs, dropping to systolic 60s. Increase IVF. Repeat orthostatics still with significant BP drop upon standing. Started on Midodrine, still symptomatic, increased dose. MAURO hose. 1st Degree AV Block: EKG does show 1st degree AV block, since symptoms more likely related to orthostatic hypotension, however if the patient remains symptomatic after treatment, consider cardiology consult for pacemaker. ALFONSO: Creatinine 1.45, no previous labs for comparison. Given IVF, repeat labs show improvement, Cr 1.08. Avoid nephrotoxins. UTI: U/a w/ evidence of UTI, however urine culture with mixed growth. DC IV Cipro. Schizophrenia: Per report, pt recently d/c'd from [place] after 1yr hospitalization for Schizophrenia 5 days ago, currently under the care of local Healthcare Associate. Not on antipsychotic medications per review of home meds. Patient calm and pleasant throughout admission. DVT Prophylaxis: SCD/Teds. Written by James Worthy, acting as scribe for Dr. Jean Baptiste on 10/11/16 at 10:31. The documentation accurately reflects the work performed [id number] by me Dr. Jean Baptiste on 10/11/16 at 10:31. Discharge Planning Disposition pending further clinical improvement. Patient is still not able to get out of bed and ambulate secondary to symptoms. James Worthy Oct 11, 2016 10:31 Ingrsi Jean Baptiste MD Oct 11, 2016 13:15
[2016-10-11 11:46] VITALS: BP 118/69; PULSE 68; RESP 18; TEMP 98; O2SAT 96
--- NOTE | 2016-10-11 12:42 | RADRPT ---
EXAM DATE/TIME: 10/11/2016 10:51 [facility] COMPARISON: No previous studies available for comparison. INDICATIONS : Syncope. MEDICAL HISTORY : Schizophrenia. SURGICAL HISTORY : Tubal ligation. ENCOUNTER: Initial ACUITY: 1 day PAIN SCORE: 0/10 LOCATION: Bilateral neck PEAK SYSTOLIC VELOCITIES (cm/sec): ICA/CCA RATIO: Right: 1.2 Left: 0.7 ICA: Right: 68 Left: 69 CCA: Right: 55 Left: 70 ECA: Right: 68 Left: 117 VERTEBRAL: Right: 38 antegrade Left: 46 antegrade Elevated flow velocities and ICA/CCA ratios have been found to correlate with increased degrees of vessel stenosis, calculated as percentage of diameter relative to a normal segment of distal ICA/CCA FINDINGS: RIGHT CAROTID: No significant stenosis is visualized. The waveforms are within normal limits. LEFT CAROTID: No significant stenosis is visualized. The waveforms are within normal limits. VERTEBRAL ARTERIES: Antegrade flow is seen in both vertebral arteries. MISCELLANEOUS: None. CONCLUSION: 1. Mild visible plaque in the carotid arteries bilaterally. No hemodynamically significant stenosis i dentified. Vertebral artery flow antegrade bilaterally. Gordo Gibson MD on October 11, 2016 at 12:38 Board Certified Radiologist. This report was verified electronically.
[2016-10-11 17:44] VITALS: BP 121/68; PULSE 77; RESP 21; TEMP 98; O2SAT 98
[2016-10-11 20:16] VITALS: BP 132/76; PULSE 82; RESP 18; TEMP 98.5; O2SAT 95
[2016-10-12 00:50] VITALS: BP 132/77; PULSE 70; RESP 16; O2SAT 95
[2016-10-12] MEDS: MIDODRINE 5 MG TAB PO SCH ×3 (06:17→17:04)
[2016-10-12 06:22] VITALS: BP 123/76; PULSE 67; RESP 17; TEMP 98.1; O2SAT 93
[2016-10-12] MEDS: SODIUM CHLOR 0.9% 1000 ML INJ 1,000 ML IV SCH ×3 (06:26→21:18)
[2016-10-12 10:07] VITALS: BP_SYST 141; BP_SYST 73; BP_DIAS 48; BP_DIAS 88; PULSE 68; RESP 18; O2SAT 93
--- NOTE | 2016-10-12 11:17 | HHI.PR ---
Subjective Remarks Follow up for frequent falls, orthostatic hypotension. The patient currently denies any dizziness while lying in bed however last night when she tried to stand up, she became dizzy and fell to the floor. She states her legs feel weak upon standing. Denies any headache, chest pain, shortness of breath. She has no other medical complaints at this time. Objective Vitals Vital Signs Date Time Temp Pulse Resp B/P Pulse Ox O2 Delivery O2 Flow Rate FiO2 10/12/16 10:07 68 18 141/88 93 73/48 10/12/16 06:22 98.1 67 17 123/76 93 10/12/16 00:50 70 16 132/77 95 10/11/16 20:16 98.5 82 18 132/76 95 10/11/16 17:44 98.0 77 21 121/68 98 10/11/16 11:46 98.0 68 18 118/69 96 I/O 10/11/16 10/11/16 10/11/16 10/12/16 10/12/16 10/12/16 07:00 15:00 23:00 07:00 15:00 23:00 Intake Total 4419 ml Balance 4419 ml Intake Oral 1920 ml IV Total 2499 ml # Voids 5 Result Diagram: 10/09/16 1056 10/10/16 0132 Imaging Last Impressions Carotid Artery Ultrasound 10/11/16 0000 Signed Impressions: Service Date/Time: Tuesday, October 11, 2016 10:51 - CONCLUSION: 1. Mild visible plaque in the carotid arteries bilaterally. No hemodynamically significant stenosis identified. Vertebral artery flow antegrade bilaterally. Gordo Gibson MD Head CT 10/07/161918 Signed Impressions: Service Date/Time: Friday, October 07, 2016 20:30 - CONCLUSION: 1. No evidence of acute hemorrhage or mass effect. 2. Right high frontal encephalomalacia suggesting old infarction. Prior aneurysm procedure with metallic artifact in the supraclinoid region. Brian Morse MD Chest X-Ray 10/07/161918 Signed Impressions: Service Date/Time: Friday, October 07, 2016 20:05 - CONCLUSION: The lungs are clear. Brian Morse MD Objective Remarks GENERAL: Well-nourished, well-developed pleasant middle aged AA female patient in [facility]. SKIN: Warm and dry. No rash. HEAD: Normocephalic. Atraumatic. EYES: Pupils equal and round. No scleral icterus. No injection or drainage. ENT: No nasal bleeding or discharge. Mucous membranes pink and moist. NECK: Supple. Trachea midline. CARDIOVASCULAR: Regular rate and rhythm. S1, S2 noted. No murmur appreciated. RESPIRATORY: No accessory muscle use. Clear to auscultation. Breath sounds equal bilaterally. GASTROINTESTINAL: Abdomen soft, non-tender, nondistended. Normoactive bowel sounds x4. MUSCULOSKELETAL: No obvious deformities. Extremities without clubbing, cyanosis , or edema. NEUROLOGICAL: Awake and alert. No obvious cranial nerve deficits. Motor grossly within normal limits. 5/5 muscle strength in bilateral upper and lower extremities. Normal speech. Medications and IVs Current Medications Medications (Trade) Dose Ordered Sig/Willi Route Start Time Stop Time Status Last Admin (NS 1000 ml Inj) 1,000 ml @ 125 mls/hr Q8H IV 10/07/16 21:17 10/12/16 13:07 (NS Flush) 2 ml UNSCH PRN FLUSH 10/07/16 21:30 (NS Flush) 2 ml BID FLUSH 10/08/16 09:00 10/12/16 13:07 (Zofran Inj) 4 mg Q6H PRN IVP 10/07/16 21:30 (Dulcolax Supp) 10 mg DAILY PRN MT 10/07/16 21:30 (Tylenol) 650 mg Q6H PRN PO 10/07/16 21:30 (Proamatine) 10 mg TID@07,12,17 PO 10/11/16 12:00 10/12/16 13:08 Urinary Catheter: No Vascular Central Line Catheter: No A/P Problem List: (1) Syncope ICD Code: R55 Status: Acute (2) Orthostatic hypotension ICD Code: I95.1 Status: Acute (3) Renal insufficiency ICD Code: N28.9 Status: Acute (4) Schizophrenia ICD Code: F20.9 Status: Chronic Assessment and Plan 61-year-old female with a PMH of Schizophrenia was brought to the ER by Home Health Cardiac Care Nurse with whom the patient lives secondary to multiple falls. Syncope: likely vasovagal with dehydration and severe orthostatic hypotension as below. CT Head showed no acute findings, right high frontal encephalomalacia , prior aneurysm procedure. Echo unremarkable, EF 55%. ACS ruled out with negative serial cardiac enzymes x2, and EKG without acute ST-T changes. PT recommends HHC vs SNF, depending on improvement. Carotid U/S with mild plaque bilaterally, no significant stenosis. Holter pending. Unable to perform MRI with aneurysm clip. Consider neurology consultation if no improvement after correction of orthostatic hypotension. Severe Orthostatic Hypotension: +orthostatic vitals signs, dropping to systolic 60s. Increased IVF. Repeat orthostatics still with significant BP drop upon standing. Started on Midodrine, increased dose to 10mg tid. MAURO hose. 1st Degree AV Block: EKG does show 1st degree AV block, symptoms more likely related to orthostatic hypotension however if the patient remains symptomatic after treatment, consider cardiology consult for pacemaker. ALFONSO: Creatinine 1.45, no previous labs for comparison. Given IVF, repeat labs show improvement, Cr 1.01. Avoid nephrotoxins. UTI: U/a w/ evidence of UTI, however urine culture with mixed growth. DC IV Cipro. Schizophrenia: Per report, pt recently d/c'd from [place] after 1yr hospitalization for Schizophrenia 5 days ago, currently under the care of local Healthcare Associate. Not on antipsychotic medications per review of home meds. Patient calm and pleasant throughout admission. Elevated Blood Glucose: BG 138, 125. No hx of diabetes per the patient. Check HgbA1c. DVT Prophylaxis: SCD/Teds. Written by Stefania Kwong, acting as scribe for Dr. Berry on 10/12/16 at 11: 16. Attending Statement The documentation accurately reflects the work performed [id number] by me on at 11:16. Stefania Kwong PA-C Oct 12, 2016 11:17 Lawrence Jacques MD Oct 14, 2016 18:28
[2016-10-12] MEDS: SODIUM CHLORIDE 0.9% FLUSH 5 ML FLUSH FLUSH SCH ×2 (13:07→20:36)
[2016-10-12 16:10] VITALS: BP 112/71; PULSE 70; RESP 20; TEMP 98.6; O2SAT 94
[2016-10-12 16:27] LABS: HEMOGLOBIN A1a 1.2 %; HEMOGLOBIN A1b 1.9 %; HEMOGLOBIN Ao 83.8 %; HEMOGLOBIN LA1C 2.2 %; HEMOGLOBIN P3 5.8 %
[2016-10-12 20:45] VITALS: BP 138/77; PULSE 85; RESP 18; TEMP 98.4; O2SAT 97
[2016-10-13] VITALS (7 sets, daily range): BP systolic 68–145; BP diastolic 39–100; PULSE 62–84; RESP 18–20; TEMP 97.1–98.6; O2SAT 95–98
[2016-10-13] MEDS: SODIUM CHLOR 0.9% 1000 ML INJ 1,000 ML IV SCH ×3 (06:18→23:49)
[2016-10-13] MEDS: MIDODRINE 5 MG TAB PO SCH ×3 (07:33→17:04)
--- NOTE | 2016-10-13 09:15 | HHI.PR ---
Subjective Remarks Follow up for frequent falls with orthostatic hypotension. The patient reports some mild headache and nausea this morning, no vomiting. She does not want any medications for this. She is currently starting to eat breakfast without any difficulty. She really wants to go home. Orthostatic vital signs are improving and the patient denies any dizziness upon standing yesterday. She denies any lightheadedness/dizziness currently. She has no other medical complaints at this time. 1100hrs: RN informs me the patient had a fall while attempting ambulation with physical therapy. No injury, did not hit her head, no LOC. Objective Vitals Vital Signs Date Time Temp Pulse Resp B/P Pulse Ox O2 Delivery O2 Flow Rate FiO2 10/13/16 07:17 98.2 62 18 112/55 97 10/13/16 06:27 101/51 123/60 10/13/16 03:16 98.2 84 18 136/86 97 10/12/16 20:45 98.4 85 18 138/77 97 10/12/16 16:10 98.6 70 20 112/71 94 10/12/16 10:07 68 18 141/88 93 73/48 I/O 10/12/16 10/12/16 10/12/16 10/13/16 10/13/16 10/13/16 07:00 15:00 23:00 07:00 15:00 23:00 Intake Total 4419 ml Balance 4419 ml Intake Oral 1920 ml IV Total 2499 ml # Voids 5 1 1 Result Diagram: 10/09/16 1056 10/10/16 0132 Imaging Last Impressions Carotid Artery Ultrasound 10/11/16 0000 Signed Impressions: Service Date/Time: Tuesday, October 11, 2016 10:51 - CONCLUSION: 1. Mild visible plaque in the carotid arteries bilaterally. No hemodynamically significant stenosis identified. Vertebral artery flow antegrade bilaterally. Gordo Gibson MD Head CT 10/07/161918 Signed Impressions: Service Date/Time: Friday, October 07, 2016 20:30 - CONCLUSION: 1. No evidence of acute hemorrhage or mass effect. 2. Right high frontal encephalomalacia suggesting old infarction. Prior aneurysm procedure with metallic artifact in the supraclinoid region. Brian Morse MD Chest X-Ray 10/07/161918 Signed Impressions: Service Date/Time: Friday, October 07, 2016 20:05 - CONCLUSION: The lungs are clear. Brian Morse MD Objective Remarks GENERAL: Well-nourished, well-developed pleasant middle aged AA female patient in NAD. SKIN: Warm and dry. No rash. HEAD: Normocephalic. Atraumatic. EYES: Pupils equal and round. No scleral icterus. No injection or drainage. ENT: No nasal bleeding or discharge. Mucous membranes pink and moist. NECK: Supple. Trachea midline. CARDIOVASCULAR: Regular rate and rhythm. S1, S2 noted. No murmur appreciated. RESPIRATORY: No accessory muscle use. Clear to auscultation. Breath sounds equal bilaterally. GASTROINTESTINAL: Abdomen soft, non-tender, nondistended. Normoactive bowel sounds x4. MUSCULOSKELETAL: No obvious deformities. Extremities without clubbing, cyanosis , or edema. NEUROLOGICAL: Awake and alert. No obvious cranial nerve deficits. Motor grossly within normal limits. 5/5 muscle strength in bilateral upper and lower extremities. Normal speech. Medications and IVs Current Medications Medications (Trade) Dose Ordered Sig/Willi Route Start Time Stop Time Status Last Admin (NS 1000 ml Inj) 1,000 ml @ 125 mls/hr Q8H IV 10/07/16 21:17 10/13/16 06:18 (NS Flush) 2 ml UNSCH PRN FLUSH 10/07/16 21:30 (NS Flush) 2 ml BID FLUSH 10/08/16 09:00 10/12/16 13:07 (Zofran Inj) 4 mg Q6H PRN IVP 10/07/16 21:30 (Dulcolax Supp) 10 mg DAILY PRN [place] 10/07/16 21:30 (Tylenol) 650 mg Q6H PRN PO 10/07/16 21:30 (Proamatine) 10 mg TID@07,12,17 PO 10/11/16 12:00 10/13/16 07:33 Urinary Catheter: No Vascular Central Line Catheter: No A/P Problem List: (1) Syncope ICD Code: R55 Status: Acute (2) Orthostatic hypotension ICD Code: I95.1 Status: Acute (3) Renal insufficiency ICD Code: N28.9 Status: Acute (4) Schizophrenia ICD Code: F20.9 Status: Chronic Assessment and Plan 61-year-old female with a PMH of Schizophrenia was brought to the ER [facility] with whom the patient lives secondary to multiple falls. Syncope/Frequent Falls: likely vasovagal with dehydration and severe orthostatic hypotension as below. CT Head showed no acute findings, right high frontal encephalomalacia, prior aneurysm procedure. Echo unremarkable, EF 55%. ACS ruled out with negative serial cardiac enzymes x2, and EKG without acute ST- T changes. PT recommends HHC vs SNF, depending on improvement. Carotid U/S with mild plaque bilaterally, no significant stenosis. Holter pending. Unable to perform MRI with aneurysm clip. Consider neurology consultation if no improvement after correction of orthostatic hypotension. Severe Orthostatic Hypotension: +orthostatic vitals signs, dropping to systolic 60s. Increased IVF. Repeat orthostatics still with significant BP drop upon standing. Started on Midodrine, increased dose to 10mg tid. MAURO hose. Still orthostatic, started the patient on Mestinon. 1st Degree AV Block: EKG does show 1st degree AV block, symptoms more likely related to orthostatic hypotension however if the patient remains symptomatic after treatment, consider cardiology consult for pacemaker. ALFONSO: Creatinine 1.45, no previous labs for comparison. Given IVF, repeat labs show improvement, Cr 1.01. Avoid nephrotoxins. UTI: U/a w/ evidence of UTI, however urine culture with mixed growth. DC IV Cipro. Schizophrenia: Per report, pt recently d/c'd from [facility] after 1yr hospitalization for Schizophrenia 5 days ago, currently under the care of local [facility]. Not on antipsychotic medications per review of home meds. Patient calm and pleasant throughout admission. Pre-Diabetes: BG 138, 125. No hx of diabetes per the patient. HgbA1c 6.0.Diabetic education. Accu-cheks with SSI. Microcytic Anemia: Suspect ACD, Hgb stable however possible contributing to lightheadedness. Check iron panel/ferritin. Check stool hemoccult. DVT Prophylaxis: SCD/Teds. Discharge Planning Case management consulted for discharge planning, needs rehab. Stefania Kwong PA-C Oct 13, 2016 09:15 Lawrence Jacques MD Oct 14, 2016 18:29
[2016-10-13] MEDS: SODIUM CHLORIDE 0.9% FLUSH 5 ML FLUSH FLUSH SCH ×2 (10:00→20:41)
[2016-10-13] MEDS ORDERED: GLUCAGON 1 MG/ML VIAL OTHER PRN (11:45)
[2016-10-13] MEDS ORDERED: DEXTROSE 50% IN WATER 50 ML VIAL(D50) IV PUSH PRN (11:45)
[2016-10-13] MEDS ORDERED: PILL SPLITTER OTHER PRN (12:15)
[2016-10-13 12:50] LABS: BASOPHIL % 0.6 % (0.0-2.0); EOSINOPHIL % 0.1 % (0.0-4.0); HEMATOCRIT 29.7 % (35.0-46.0); HEMO FLAGS DIFF FINAL; LYMPH % 21.2 % (9.0-44.0); LYMPHOCYTE # 1.5 TH/MM3 (1.0-4.8); MEAN CELL VOLUME 78.8 FL (80.0-100.0); MEAN CORPUSCULAR HEMOGLOBIN 26.1 PG (27.0-34.0); MEAN CORPUSCULAR HGB CONC 33.2 % (32.0-36.0); MONO % 8.7 % (0.0-8.0); NEUT % 69.4 % (16.0-70.0); PLATELET COUNT 229 TH/MM3 (150-450); RED BLOOD COUNT 3.77 MIL/MM3 (4.00-5.30); RED CELL DISTRIBUTION WIDTH 15.7 % (11.6-17.2); WHITE BLOOD COUNT 7.2 TH/MM3 (4.0-11.0)
[2016-10-13 13:11] LABS: ANION GAP 10 MEQ/L (5-15); BICARBONATE 26.5 MEQ/L (21.0-32.0); BLOOD UREA NITROGEN 15 MG/DL (7-18); CHLORIDE 107 MEQ/L (98-107); FERRITIN 177 NG/ML (8-252); GLOMERULAR FILTRATION RATE 75 ML/MIN (>89); POTASSIUM 3.6 MEQ/L (3.5-5.1); SODIUM (NA) 143 MEQ/L (136-145); TRANSFERRIN IRON PROFILE 204 MG/DL (200-360)
[2016-10-13] MEDS: PYRIDOSTIGMINE BROMIDE 60 MG TAB PO SCH ×2 (14:00→23:48)
[2016-10-13] MEDS: INSULIN ASPART SUPPLEMENTAL SCALE SQ SCH ×2 (17:07→20:48)
--- NOTE | 2016-10-13 17:22 | HM ---
Date Performed: 10/11/2016 Time Performed: 15:44:00 HOOKUP DATE: 10/11/16 03:44:00 PM Wed ANALYSIS START TIME: 10/11/2016 3:49:00 PM ANALYSIS END TIME: 10/12/2016 3:34:00 PM PATIENT AGE: 61 PATIENT HEIGHT PATIENT WEIGHT DRUG LIST PATIENT DIAGNOSIS: syncope/collapse/hypotension TEST NARRATIVE: The patient's average heart rate was 70 BPM. No episodes of tachycardia wer e noted. No episodes of bradycardia were noted. No pauses exceeding 2.0 seconds were noted. 3 ventricular ectopics, which represented < 1% of the total beat count, were noted. The highest vent ricular ectopic frequency occurred from 12:00 AM to 01:00 AM Mindi. During this time 1 VE(s) occurred. Ventricular ectopics were observed as 3 isolated beat(s) only. No couplets or runs were noted. 1 supraventricular ectopics, which represented < 1% of the total beat count, were noted. The highes t supraventricular ectopic frequency occurred from 08:00 AM to 09:00 AM Mindi. During this time 1 SVE( s) occurred. No episodes of ST depression (defined as -1.0 mm or more) were noted in channel 1. No episodes of ST depression (defined as -1.0 mm or more) were noted in channel 2. No episodes of ST depression (defined as -1.0 mm or more) were noted in channel 3. Poor quality tracing leads disconne cted over night. TEST INTERPRETATION: Patient undergoes a holter monitor to evaluate syncope. No diary is provide d. Holter monitor shows just Sinus rhythm with occasional PAC's and PVC's. No rhythm disturbances are noted. Conclusions: Normal holter monito r with rear PAC's and PVC's. No significant tachyarrhythmias and bradyarrhythmias expanded. No diary provided so its unknown as to whether the patient is symptomatic. Signed by : Layne Pena
[2016-10-14] VITALS: BP 109/78; PULSE 63; RESP 18; TEMP 97.1; O2SAT 97
[2016-10-14 04:00] VITALS: BP_SYST 126; BP_SYST 129; BP_DIAS 71; BP_DIAS 77; PULSE 71; RESP 16; TEMP 97.4; O2SAT 95
[2016-10-14] MEDS: PYRIDOSTIGMINE BROMIDE 60 MG TAB PO SCH ×3 (06:31→22:53)
[2016-10-14] MEDS: MIDODRINE 5 MG TAB PO SCH ×3 (06:32→18:22)
[2016-10-14] MEDS: INSULIN ASPART SUPPLEMENTAL SCALE SQ SCH ×4 (06:33→21:00)
[2016-10-14 08:00] VITALS: BP 98/53; PULSE 70; RESP 18; TEMP 98; O2SAT 97
[2016-10-14] MEDS: SODIUM CHLORIDE 0.9% FLUSH 5 ML FLUSH FLUSH SCH ×2 (09:00→22:53)
[2016-10-14] MEDS: SODIUM CHLOR 0.9% 1000 ML INJ 1,000 ML IV SCH (11:34)
[2016-10-14 12:00] VITALS: BP_SYST 111; BP_SYST 123; BP_DIAS 55; BP_DIAS 82; PULSE 68; RESP 20; TEMP 98.1; O2SAT 97
[2016-10-14 16:00] VITALS: BP 140/86; PULSE 74; RESP 18; TEMP 98.4; O2SAT 98
--- NOTE | 2016-10-14 18:30 | HHI.PR ---
Subjective Remarks Follow-up frequent falls with orthostatic hypotension. The patient states that she feels fine, however admits to dizziness when sitting up He denies chest pain or shortness of breath There is still some degree of orthostatic hypotension Objective Vitals Vital Signs Date Time Temp Pulse Resp B/P Pulse Ox O2 Delivery O2 Flow Rate FiO2 10/14/16 16:00 98.4 74 18 140/86 98 10/14/16 12:00 98.1 68 20 123/82 97 111/55 10/14/16 08:00 98.0 70 18 98/53 97 10/14/16 04:00 97.4 71 16 126/77 95 129/71 10/14/16 00:00 97.1 63 18 109/78 97 10/13/16 22:45 97.1 63 18 109/78 97 10/13/16 19:26 98.6 75 20 145/100 98 85/48 I/O 10/13/16 10/13/16 10/13/16 10/14/16 10/14/16 10/14/16 07:00 15:00 23:00 07:00 15:00 23:00 Intake Total 1000 ml 1430 ml 720 ml 1347 ml Output Total 400 ml 1200 ml 650 ml 400 ml Balance 600 ml 230 ml 70 ml 947 ml Intake Oral 480 ml 720 ml IV Total 1000 ml 950 ml 1347 ml Output Urine Total 400 ml 1200 ml 650 ml 400 ml # Voids 1 1 4 # Bowel Movements 0 Result Diagram: 10/13/16 1232 10/13/16 1232 Imaging Last Impressions Carotid Artery Ultrasound 10/11/16 0000 Signed Impressions: Service Date/Time: Tuesday, October 11, 2016 10:51 - CONCLUSION: 1. Mild visible plaque in the carotid arteries bilaterally. No hemodynamically significant stenosis identified. Vertebral artery flow antegrade bilaterally. Gordo Gibson MD Head CT 10/07/161918 Signed Impressions: Service Date/Time: Friday, October 07, 2016 20:30 - CONCLUSION: 1. No evidence of acute hemorrhage or mass effect. 2. Right high frontal encephalomalacia suggesting old infarction. Prior aneurysm procedure with metallic artifact in the supraclinoid region. Brian Morse MD Chest X-Ray 10/07/161918 Signed Impressions: Service Date/Time: Friday, October 07, 2016 20:05 - CONCLUSION: The lungs are clear. Brian Morse MD Objective Remarks GENERAL: Well-nourished, well-developed pleasant middle aged AA female patient in NAD. SKIN: Warm and dry. No rash. HEAD: Normocephalic. Atraumatic. EYES: Pupils equal and round. No scleral icterus. No injection or drainage. ENT: No nasal bleeding or discharge. Mucous membranes pink and moist. NECK: Supple. Trachea midline. CARDIOVASCULAR: Regular rate and rhythm. S1, S2 noted. No murmur appreciated. RESPIRATORY: No accessory muscle use. Clear to auscultation. Breath sounds equal bilaterally. GASTROINTESTINAL: Abdomen soft, non-tender, nondistended. Normoactive bowel sounds x4. MUSCULOSKELETAL: No obvious deformities. Extremities without clubbing, cyanosis , or edema. NEUROLOGICAL: Awake and alert. No obvious cranial nerve deficits. Motor grossly within normal limits. 5/5 muscle strength in bilateral upper and lower extremities. Normal speech. Procedures None Medications and IVs Current Medications Medications (Trade) Dose Ordered Sig/Willi Route Start Time Stop Time Status Last Admin (NS 1000 ml Inj) 1,000 ml @ 125 mls/hr Q8H IV 10/07/16 21:17 10/14/16 11:34 (NS Flush) 2 ml UNSCH PRN FLUSH 10/07/16 21:30 (NS Flush) 2 ml BID FLUSH 10/08/16 09:00 10/12/16 13:07 (Zofran Inj) 4 mg Q6H PRN IVP 10/07/16 21:30 (Dulcolax Supp) 10 mg DAILY PRN [place] 10/07/16 21:30 (Tylenol) 650 mg Q6H PRN PO 10/07/16 21:30 (Proamatine) 10 mg TID@07,12,17 PO 10/11/16 12:00 10/14/16 18:22 (D50w (Vial) Inj) 25 ml UNSCH PRN IV PUSH 10/13/16 11:45 (Glucagon Inj) 1 mg UNSCH PRN OTHER 10/13/16 11:45 (Pill Splitter) 1 ea UNSCH PRN OTHER 10/13/16 12:15 (Mestinon) 60 mg Q8HR PO 10/14/16 22:00 A/P Problem List: (1) Orthostatic hypotension ICD Code: I95.1 Status: Acute Plan: Patient with positive orthostatic vital signs, dropping her blood pressure to systolics 60s. IV fluids which were increased initially. However the patient still with significant orthostatic hypotension. The patient was started on Midrin which was titrated up to 10 mg by mouth 3 times a day, however the patient was still orthostatic. Started the patient on Mestinon 30 mg by mouth every 8 hours, patient orthostasis improved, however still present. I would increase the dose to 60 mg by mouth every 8 hours. (2) Syncope ICD Code: R55 Status: Resolved Plan: Syncope likely vasovagal with dehydration and severe orthostatic hypotension. CT of the head showed no acute findings. Right frontal malacia, para aneurysm procedure. Echocardiogram unremarkable with EF of 55%. ACS ruled out with negative serial cardiac enzymes 2 [address] without acute ST- T changes. Unable to perform MRI due to aneurysm clip. Carotid ultrasound shows visible carotid bulb plaque, however no significant stenosis. Holter monitor showed sinus rhythm. No arrhythmia seen. (3) ALFONSO (acute kidney injury) ICD Code: N17.9 Status: Resolved Plan: Threatening 1.45 on admission. No previous labs for comparison. Treated with IV fluids. Likely due to prerenal azotemia and dehydration as well as some hemodynamic instability. Creatinine now improving. Resolved after IV fluid administration. (4) Schizophrenia ICD Code: F20.9 Status: Chronic Plan: The patient report the patient was recently discharged from [facility] after 1 year hospitalization for schizophrenia 5 days ago prior to presentation to our institution. The patient is currently under the care of local healthcare associated. Nominal antipsychotic medications as per review of home medications. (5) 1st degree AV block ICD Code: I44.0 Status: Chronic Plan: As seen on EKG personally reviewed by me. No ST changes. Symptoms likely secondary to orthostatic hypotension. Holter monitor did not show evidence of any cardiac arrhythmia. It shows sinus rhythm. (6) UTI (urinary tract infection) ICD Code: N39.0 Status: Resolved Plan: UA with evidence of possible UTI with increased white blood cell of 6. However urine culture with mixed growth. Patient initially was started on IV ciprofloxacin which was discontinued. (7) Prediabetes ICD Code: R73.03 Status: Acute Plan: Patient has included an A1c of 6.0. Appreciate diabetes education. I will set the patient on oral metformin. Blood sugars stable. Continue necessary with insulin NovoLog and Accu-Cheks. (8) Microcytic anemia ICD Code: D50.9 Status: Acute Plan: Patient with normal iron studies. We'll check hemoglobin electrophoresis. Differential diagnosis includes thalassemia. Discharge Planning Possible discharge in a.m. Pending improvement of orthostatic hypotension and symptoms. Patient will need rehabilitation. Problem Qualifiers (1) Syncope: Qualified Code: R55 - Syncope, unspecified syncope type (2) Schizophrenia: Qualified Code: F20.9 - Schizophrenia, unspecified type Lawrence Jacques MD Oct 14, 2016 18:30
[2016-10-14 20:00] VITALS: BP_SYST 106; BP_SYST 189; BP_SYST 72; BP_DIAS 100; BP_DIAS 44; BP_DIAS 68; PULSE 68; PULSE 69; RESP 17; TEMP 98.1; O2SAT 98
[2016-10-14] MEDS: metFORMIN HCL 500 MG TAB PO SCH (22:55)
[2016-10-15] VITALS: BP 130/85; PULSE 65; RESP 18; TEMP 98.5; O2SAT 99
[2016-10-15 04:00] VITALS: BP 133/80; PULSE 66; RESP 18; TEMP 98.5; O2SAT 98
[2016-10-15] MEDS: INSULIN ASPART SUPPLEMENTAL SCALE SQ SCH ×4 (06:54→21:00)
[2016-10-15] MEDS: PYRIDOSTIGMINE BROMIDE 60 MG TAB PO SCH ×3 (06:59→22:00)
[2016-10-15] MEDS: MIDODRINE 5 MG TAB PO SCH ×3 (06:59→17:00)
[2016-10-15 08:00] VITALS: BP 137/63; PULSE 64; RESP 18; TEMP 98; O2SAT 97
[2016-10-15] MEDS: MULTIVITAMINS/MINERALS THERAPEUTIC TAB PO SCH (08:33)
[2016-10-15] MEDS: FERROUS FUMARATE 325 MG TAB (106 MG ELEMENTAL IRON) PO SCH (08:34)
[2016-10-15] MEDS: FOLIC ACID 1 MG TAB PO SCH (08:34)
[2016-10-15] MEDS: metFORMIN HCL 500 MG TAB PO SCH ×2 (08:34→17:37)
[2016-10-15] MEDS: SODIUM CHLORIDE 0.9% FLUSH 5 ML FLUSH FLUSH SCH ×2 (08:34→21:00)
[2016-10-15 12:00] VITALS: BP_SYST 130; BP_SYST 133; BP_DIAS 68; BP_DIAS 72; PULSE 77; RESP 18; TEMP 98.2; O2SAT 98
[2016-10-15 14:00] VITALS: BP 133/89; PULSE 81; RESP 18; TEMP 98.1; O2SAT 96
[2016-10-15] MEDS: SODIUM CHLOR 0.9% 1000 ML INJ 1,000 ML IV SCH (17:38)
--- NOTE | 2016-10-15 18:18 | HHI.PR ---
Subjective Remarks Patient still c/o dizziness upon standing as per RN patient did not c/o dizziness in whole day denies cp/sob denies fevers or chills as per RN the patient having more frequent bowel movements but reportedly this are less formed. Objective Vitals Vital Signs Date Time Temp Pulse Resp B/P Pulse Ox O2 Delivery O2 Flow Rate FiO2 10/15/16 12:00 98.2 77 18 133/68 98 130/72 10/15/16 08:00 98.0 64 18 137/63 97 10/15/16 04:00 98.5 66 18 133/80 98 10/15/16 00:00 98.5 65 18 130/85 99 10/14/16 20:00 68 72/44 10/14/16 20:00 98.1 69 17 189/100 98 106/68 I/O 10/14/16 10/14/16 10/14/16 10/15/16 10/15/16 10/15/16 07:00 15:00 23:00 07:00 15:00 23:00 Intake Total 1430 ml 720 ml 1827 ml 240 ml 2543 ml Output Total 1200 ml 650 ml 400 ml Balance 230 ml 70 ml 1427 ml 240 ml 2543 ml Intake Oral 480 ml 720 ml 480 ml 240 ml 960 ml IV Total 950 ml 1347 ml 1583 ml Output Urine Total 1200 ml 650 ml 400 ml # Voids 4 5 4 5 # Bowel Movements 0 0 0 2 Result Diagram: 10/13/16 1232 10/13/16 1232 Imaging Last Impressions Carotid Artery Ultrasound 10/11/16 0000 Signed Impressions: Service Date/Time: Tuesday, October 11, 2016 10:51 - CONCLUSION: 1. Mild visible plaque in the carotid arteries bilaterally. No hemodynamically significant stenosis identified. Vertebral artery flow antegrade bilaterally. Gordo Gibson MD Head CT 10/07/161918 Signed Impressions: Service Date/Time: Friday, October 07, 2016 20:30 - CONCLUSION: 1. No evidence of acute hemorrhage or mass effect. 2. Right high frontal encephalomalacia suggesting old infarction. Prior aneurysm procedure with metallic artifact in the supraclinoid region. Brian Morse MD Chest X-Ray 10/07/161918 Signed Impressions: Service Date/Time: Friday, October 07, 2016 20:05 - CONCLUSION: The lungs are clear. Brian Morse MD Objective Remarks GENERAL: Well-nourished, well-developed pleasant middle aged AA female patient in NAD. SKIN: Warm and dry. No rash. HEAD: Normocephalic. Atraumatic. EYES: Pupils equal and round. No scleral icterus. No injection or drainage. ENT: No nasal bleeding or discharge. Mucous membranes pink and moist. NECK: Supple. Trachea midline. CARDIOVASCULAR: Regular rate and rhythm. S1, S2 noted. No murmur appreciated. RESPIRATORY: No accessory muscle use. Clear to auscultation. Breath sounds equal bilaterally. GASTROINTESTINAL: Abdomen soft, non-tender, nondistended. Normoactive bowel sounds x4. MUSCULOSKELETAL: No obvious deformities. Extremities without clubbing, cyanosis , or edema. NEUROLOGICAL: Awake and alert. No obvious cranial nerve deficits. Motor grossly within normal limits. 5/5 muscle strength in bilateral upper and lower extremities. Normal speech. Procedures None Medications and IVs Current Medications Medications (Trade) Dose Ordered Sig/Willi Route Start Time Stop Time Status Last Admin (NS 1000 ml Inj) 1,000 ml @ 125 mls/hr Q8H IV 10/07/16 21:17 10/15/16 17:38 (NS Flush) 2 ml UNSCH PRN FLUSH 10/07/16 21:30 (NS Flush) 2 ml BID FLUSH 10/08/16 09:00 10/14/16 22:53 (Zofran Inj) 4 mg Q6H PRN IVP 10/07/16 21:30 (Dulcolax Supp) 10 mg DAILY PRN [place] 10/07/16 21:30 (Tylenol) 650 mg Q6H PRN PO 10/07/16 21:30 (Proamatine) 10 mg TID@07,12,17 PO 10/11/16 12:00 10/15/16 17:00 (D50w (Vial) Inj) 25 ml UNSCH PRN IV PUSH 10/13/16 11:45 (Glucagon Inj) 1 mg UNSCH PRN OTHER 10/13/16 11:45 (Pill Splitter) 1 ea UNSCH PRN OTHER 10/13/16 12:15 (Mestinon) 60 mg Q8HR PO 10/14/16 22:00 10/15/16 17:36 (Folate) 1 mg DAILY PO 10/15/16 09:00 10/15/16 08:34 (Theragran M Tab) 1 tab DAILY PO 10/15/16 09:00 10/15/16 08:33 (Hemocyte) 325 mg DAILY PO 10/15/16 09:00 10/15/16 08:34 (Glucophage) 500 mg BIDPC PO 10/14/16 19:15 10/15/16 17:37 Urinary Catheter: No Vascular Central Line Catheter: No A/P Problem List: (1) Orthostatic hypotension ICD Code: I95.1 Status: Acute Plan: Patient with positive orthostatic vital signs, dropping her blood pressure to systolics 60s. IV fluids which were increased initially. However the patient still with significant orthostatic hypotension. The patient was started on Midrin which was titrated up to 10 mg by mouth 3 times a day, however the patient was still orthostatic. Started the patient on Mestinon 30 mg by mouth every 8 hours, patient orthostasis improved, however still present. I would increase the dose to 60 mg by mouth every 8 hours. 10/15 Orthostasis now resolved. Patient still c/o dizziness. Will consult neurology. Check MRI brain. (2) Syncope ICD Code: R55 Status: Resolved Plan: Syncope likely vasovagal with dehydration and severe orthostatic hypotension. CT of the head showed no acute findings. Right frontal malacia, para aneurysm procedure. Echocardiogram unremarkable with EF of 55%. ACS ruled out with negative serial cardiac enzymes 2 and EKG without acute ST- T changes. Unable to perform MRI due to aneurysm clip. Carotid ultrasound shows visible carotid bulb plaque, however no significant stenosis. Holter monitor showed sinus rhythm. No arrhythmia seen. (3) ALFONSO (acute kidney injury) ICD Code: N17.9 Status: Resolved Plan: Threatening 1.45 on admission. No previous labs for comparison. Treated with IV fluids. Likely due to prerenal azotemia and dehydration as well as some hemodynamic instability. Creatinine now improving. Resolved after IV fluid administration. (4) Schizophrenia ICD Code: F20.9 Status: Chronic Plan: The patient report the patient was recently discharged from [facility] after 1 year hospitalization for schizophrenia 5 days ago prior to presentation to our institution. The patient is currently under the care of local healthcare associated. Nominal antipsychotic medications as per review of home medications. (5) 1st degree AV block ICD Code: I44.0 Status: Chronic Plan: As seen on EKG personally reviewed by me. No ST changes. Symptoms likely secondary to orthostatic hypotension. Holter monitor did not show evidence of any cardiac arrhythmia. It shows sinus rhythm. (6) UTI (urinary tract infection) ICD Code: N39.0 Status: Resolved Plan: UA with evidence of possible UTI with increased white blood cell of 6. However urine culture with mixed growth. Patient initially was started on IV ciprofloxacin which was discontinued. (7) Prediabetes ICD Code: R73.03 Status: Acute Plan: Patient has included an A1c of 6.0. Appreciate diabetes education. I will set the patient on oral metformin. Blood sugars stable. Continue necessary with insulin NovoLog and Accu-Cheks. (8) Microcytic anemia ICD Code: D50.9 Status: Acute Plan: Patient with normal iron studies. Hemoglobin electrophoresis pending. Differential diagnosis includes thalassemia. (9) Loose stools ICD Code: R19.5 Status: Acute Plan: Patient is going more frequently to the restroom. Patient started recently on metformin, likely this is secondary to metformin. Continue to monitor. Discharge Planning Possible discharge in a.m. Pending improvement of orthostatic hypotension and symptoms. Patient will need rehabilitation. Problem Qualifiers (1) Syncope: Qualified Code: R55 - Syncope, unspecified syncope type (2) Schizophrenia: Qualified Code: F20.9 - Schizophrenia, unspecified type Lawrence Jacques MD Oct 15, 2016 18:18
[2016-10-15 20:00] VITALS: BP_SYST 186; BP_SYST 196; BP_DIAS 115; BP_DIAS 122; PULSE 79; RESP 16; TEMP 98.4; O2SAT 97
[2016-10-16] VITALS (7 sets, daily range): BP systolic 78–191; BP diastolic 49–98; PULSE 69–75; RESP 15–18; TEMP 96.3–98.8; O2SAT 95–98
[2016-10-16] MEDS: INSULIN ASPART SUPPLEMENTAL SCALE SQ SCH ×4 (05:58→22:55)
[2016-10-16] MEDS: PYRIDOSTIGMINE BROMIDE 60 MG TAB PO SCH ×3 (05:59→22:56)
[2016-10-16] MEDS: MIDODRINE 5 MG TAB PO SCH ×3 (05:59→17:22)
[2016-10-16] MEDS: MULTIVITAMINS/MINERALS THERAPEUTIC TAB PO SCH (08:04)
[2016-10-16] MEDS: FERROUS FUMARATE 325 MG TAB (106 MG ELEMENTAL IRON) PO SCH (08:04)
[2016-10-16] MEDS: FOLIC ACID 1 MG TAB PO SCH (08:04)
[2016-10-16] MEDS: SODIUM CHLORIDE 0.9% FLUSH 5 ML FLUSH FLUSH SCH ×2 (08:04→22:56)
[2016-10-16] MEDS: metFORMIN HCL 500 MG TAB PO SCH ×2 (10:51→17:22)
--- NOTE | 2016-10-16 13:58 | MB ---
cc: KADE AGUILAR M.D. DATE OF CONSULTATION: 10/16/2016 DATE OF : 1955 REASON FOR CONSULTATION Dizziness. HISTORY OF PRESENT ILLNESS The patient is a 61-year-old woman admitted to the hospital on 10/07/2016 with basically syncope and collapse, and hypotension. She has a known history of schizophrenia. Apparently she was brought here to the ER by a home health occasional caregiver who the patient lives with. She apparently also has multiple falls. The patient apparently was discharged from [facility] after about a year of hospitalization for schizophrenia to the care of a local health occasional caregiver surrogate. She was found to be orthostatic upon arrival. Since then she has been evaluated via echo, electrocardiogram and labs. She placed on Mestinon as well as midodrine. PHYSICAL EXAMINATION VITAL SIGNS: Current vitals, supine she was 140/86 but again at noon supine 123/82 and sitting 111/55. She has been as low as 68/39 just sitting. Looks like she has been orthostatic with quite a few evaluations of vitals; however, heart rate has not been measured with supine and sitting only. At baseline currently is 72. NEUROLOGIC: On exam she is awake and alert. She is pleasant. Pupils are reactive. Face is symmetrical. Tongue is midline. Motor-patel I do not appreciate any significant weakness. No drift or leg lag. DTRs are 1+. Toes withdraws. Gait is withheld due to safety concerns. Her labs are reviewed. She has not been hyponatremic at all. Current chemistries: 75, otherwise unremarkable. B12 is 542. CBC: Hemoglobin 9.9, hematocrit 29.7, platelets 229,000. Urine: Trace leukocyte esterase. Culture was not indicated. Hemoccult is [place] but they did a culture of the urine with 50-100,000 mixed corbin. IMAGING Carotid ultrasound: Mild plaque, nothing significant otherwise. CT head shows old right frontal encephalomalacia, possible infarct and prior aneurysm procedure, metal artifact in the supraclinoid region. IMPRESSION A 61-year-old woman with what looks like orthostatic hypotension currently on Mestinon 60 mg q.8h. as well as midorine 10 mg three times a day. Echo was unremarkable. Holter showed sinus rhythm. PLAN/RECOMMENDATIONS At this point in time I would recommend putting her on some salt. Start her on supplementation 1-2 grams of salt tablets three times a day. Adequate hydration. Compression stockings. Certainly an abdominal binder can be used but I would start with lower extremity compression stockings. If the patient can understand isometric lower extremity physical exercise that may also help. Caffeine may be of use in this situation as well because it can increase blood pressure. Questionable beta josue use in this situation. I do not see that she has POTS, postural orthostatic tachycardia syndrome, have not seen her heart rate to be elevated, but if you do check another set of orthostatics. I would check a heart rate with her lying down and then sitting and standing if standing can be done. Continue current recommendations as outlined. If her orthostasis becomes worse she may benefit from a cardiology evaluation as well. Not sure if a tilt table would be of any yield at this point. MD MYLES Orantes/CHANTEL /1:20 PM /1:35 PM
[2016-10-16] MEDS ORDERED: GADODIAMIDE PF 287 MG/ML 5 ML VIAL (for RAD MRI) IV ONE (15:16)
--- NOTE | 2016-10-16 16:41 | RADRPT ---
EXAM DATE/TIME: 10/16/2016 14:58 [facility] COMPARISON: No previous studies available for comparison. INDICATIONS : Dizziness. CONTRAST: 15 cc Omniscan (gadodiamide) IV MEDICAL HISTORY : None. SURGICAL HISTORY : Tubal ligation. Cerebral coiling. ENCOUNTER: Subsequent ACUITY: 4-6 days PAIN SCORE: 0/10 LOCATION: Cranial TECHNIQUE: Multiplanar, multisequence MRI of the brain was performed both prior to and following the administration of paramagnetic contrast. FINDINGS: There is no restricted diffusion evident. Ventricular size is appropriate. There is evidence for an old infarct in the right sylvian region. There are no extra-axial fluid collections appreciated. The posterior fossa is unremarkable. Following intravenous administration of gadolinium there is no abnormal contrast enhancement apprecia yisel. Orbits and paranasal sinuses are unremarkable. There is no abnormal contrast enhancement in th e posterior fossa. There is no mastoid disease evident. 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 Unremarkable posterior fossa. I do not see an etiology for the patient's persistent dizziness. Boom Philippe MD FACR on October 16, 2016 at 16:34 Board Certified Radiologist. This report was verified electronically.
--- NOTE | 2016-10-16 19:16 | HHI.PR ---
Subjective Remarks Follow-up for orthostatic hypotension. Patient complains of dizziness and lightheadedness when she stands up. Denies any chest pain, shortness of breath. Objective Vitals Vital Signs Date Time Temp Pulse Resp B/P Pulse Ox O2 Delivery O2 Flow Rate FiO2 10/16/16 16:00 97.3 69 16 141/86 95 10/16/16 12:00 96.3 70 18 150/94 98 10/16/16 08:00 97.3 72 16 134/95 95 78/49 10/16/16 04:30 98.1 72 16 90/58 97 10/16/16 00:20 118/90 10/16/16 00:10 98.8 75 16 191/98 97 10/15/16 20:00 98.4 79 16 186/115 97 196/122 I/O 10/15/16 10/15/16 10/15/16 10/16/16 10/16/16 10/16/16 07:00 15:00 23:00 07:00 15:00 23:00 Intake Total 240 ml 2543 ml 300 ml 200 ml 1292 ml Output Total 450 ml Balance 240 ml 2543 ml 300 ml -250 ml 1292 ml Intake Oral 240 ml 960 ml 300 ml 200 ml 480 ml IV Total 1583 ml 812 ml Output Urine Total 450 ml # Voids 4 5 2 4 # Bowel Movements 0 2 3 0 1 Result Diagram: 10/13/16 1232 10/13/16 1232 Imaging Last Impressions Brain MRI 10/16/16 0000 Signed Impressions: Service Date/Time: Sunday, October 16, 2016 14:58 - CONCLUSION: 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 Unremarkable posterior fossa. I do not see an etiology for the patient's persistent dizziness. Boom Philippe MD FACR Carotid Artery Ultrasound 10/11/16 0000 Signed Impressions: Service Date/Time: Tuesday, October 11, 2016 10:51 - CONCLUSION: 1. Mild visible plaque in the carotid arteries bilaterally. No hemodynamically significant stenosis identified. Vertebral artery flow antegrade bilaterally. Gordo Gibson MD Head CT 10/07/16 1919 Signed Impressions: Service Date/Time: Friday, October 07, 2016 20:30 - CONCLUSION: 1. No evidence of acute hemorrhage or mass effect. 2. Right high frontal encephalomalacia suggesting old infarction. Prior aneurysm procedure with metallic artifact in the supraclinoid region. Brian Morse MD Chest X-Ray 10/07/161918 Signed Impressions: Service Date/Time: Friday, October 07, 2016 20:05 - CONCLUSION: The lungs are clear. Brian Morse MD Objective Remarks GENERAL: Alert, NAD. SKIN: Warm and dry. HEAD: Normocephalic. EYES: No scleral icterus. No injection or drainage. NECK: Supple, trachea midline. No JVD or lymphadenopathy. CARDIOVASCULAR: Regular rate and rhythm without murmurs, gallops, or rubs. RESPIRATORY: Breath sounds equal bilaterally. No accessory muscle use. GASTROINTESTINAL: Abdomen soft, non-tender, nondistended. MUSCULOSKELETAL: No cyanosis, or edema. BACK: Nontender without obvious deformity. No CVA tenderness. Procedures None A/P Problem List: (1) Orthostatic hypotension ICD Code: I95.1 Status: Acute (2) Syncope ICD Code: R55 Status: Resolved (3) ALFONSO (acute kidney injury) ICD Code: N17.9 Status: Resolved (4) Schizophrenia ICD Code: F20.9 Status: Chronic (5) UTI (urinary tract infection) ICD Code: N39.0 Status: Resolved (6) Prediabetes ICD Code: R73.03 Status: Acute (7) Microcytic anemia ICD Code: D50.9 Status: Acute Assessment and Plan Ms. Packer is a 61-year-old female with a PMH of Schizophrenia was brought to the ER by Home Health Instrumentation Engineer with whom the patient lives secondary to multiple falls. - Syncope: likely vasovagal secondary to dehydration/orthostatic hypotension. CT Head w/ no acute findings. - Orthostatic Hypotension - Positive orthostatic vitals signs on admission, secondary to dehydration. BP improved with hydration. - However, orthostatics remains positive on 10/16/2016 as well. - Echo essentially normal with EF 55%. - EKG showed NSR with 1st degree AV block which is typically a benign finding. - Midodrine 10mg TID was started but patient's blood pressure increased too high - sometimes systolic 180s range. - Will d/c Midodrine and start patient on NaCl tablets. Will re-recheck orthostatic BPs on 10/17/2016. - If orthostatics are still positive, we will consider low dose Midodrine or preferably 0.1mg Fludrocortisone Qday. - Renal Insufficiency: Creatinine 1.45 improved to normal range with hydration. - UTI - received Cipro. Urine cx mixed normal corbin. - Schizophrenia: Per report, pt recently d/c'd from [place] after 1yr hospitalization for Schizophrenia 5 days ago, currently under the care of local Healthcare Associate. Not on antipsychotic medications per review of home meds. - Diabetes mellitus - Continue Metformin 500mg BID and Sliding scale insulin. Full code. Lovenox Qday. Problem Qualifiers (1) Syncope: Qualified Code: R55 - Syncope, unspecified syncope type (2) Schizophrenia: Qualified Code: F20.9 - Schizophrenia, unspecified type Leann Rivers DO Oct 16, 2016 19:16
[2016-10-16] MEDS: SODIUM CHLORIDE 1 GRAM TAB PO SCH (22:56)
[2016-10-16] MEDS: SODIUM CHLOR 0.9% 1000 ML INJ 1,000 ML IV SCH ×2 (22:57→23:00)
[2016-10-17] VITALS (7 sets, daily range): BP systolic 54–148; BP diastolic 38–97; PULSE 66–84; RESP 15–20; TEMP 96.1–99.7; O2SAT 96–99
[2016-10-17] MEDS: PYRIDOSTIGMINE BROMIDE 60 MG TAB PO SCH ×3 (05:32→22:32)
[2016-10-17] MEDS: INSULIN ASPART SUPPLEMENTAL SCALE SQ SCH ×4 (06:09→21:00)
[2016-10-17] MEDS: SODIUM CHLORIDE 0.9% FLUSH 5 ML FLUSH FLUSH SCH ×2 (08:26→19:52)
[2016-10-17] MEDS: metFORMIN HCL 500 MG TAB PO SCH ×2 (09:29→17:20)
[2016-10-17] MEDS: ENOXAPARIN SODIUM 40 MG/0.4 ML SYRINGE SQ SCH (09:29)
[2016-10-17] MEDS: SODIUM CHLORIDE 1 GRAM TAB PO SCH ×2 (09:29→19:52)
[2016-10-17] MEDS: MULTIVITAMINS/MINERALS THERAPEUTIC TAB PO SCH (09:29)
[2016-10-17] MEDS: FOLIC ACID 1 MG TAB PO SCH (09:29)
[2016-10-17] MEDS: FERROUS FUMARATE 325 MG TAB (106 MG ELEMENTAL IRON) PO SCH (09:29)
[2016-10-17] MEDS: SODIUM CHLOR 0.9% 1000 ML INJ 1,000 ML IV SCH ×3 (09:33→22:34)
--- NOTE | 2016-10-17 14:30 | HHI.PR ---
Subjective Remarks Follow-up for syncope, orthostatic hypotension. Ms. Packer is currently doing well. She reports feeling dizzy on sitting up. Orthostatic blood pressure shows 116/73 with a heart rate of 78 in supine position. On sitting up blood pressure dropped to 54/38 with a heart rate of 78. Denies any chest pain, shortness of breath, fever or chills. Objective Vitals Vital Signs Date Time Temp Pulse Resp B/P Pulse Ox O2 Delivery O2 Flow Rate FiO2 10/17/16 13:37 116/73 54/38 10/17/16 12:00 98.0 80 20 113/73 96 10/17/16 08:00 97.1 70 18 103/62 96 10/17/16 05:20 96.1 66 15 118/72 98 10/17/16 01:20 98.0 67 15 139/86 99 10/16/16 21:20 97.7 72 15 130/85 98 10/16/16 16:00 97.3 69 16 141/86 95 I/O 10/16/16 10/16/16 10/16/16 10/17/16 10/17/16 10/17/16 07:00 15:00 23:00 07:00 15:00 23:00 Intake Total 200 ml 1292 ml 900 ml 900 ml 240 ml Output Total 450 ml Balance -250 ml 1292 ml 900 ml 900 ml 240 ml Intake Oral 200 ml 480 ml 240 ml IV Total 812 ml 900 ml 900 ml Output Urine Total 450 ml # Voids 4 3 3 2 # Bowel Movements 0 1 2 1 Result Diagram: 10/13/16 1232 10/13/16 1232 Imaging Last Impressions Brain MRI 10/16/16 0000 Signed Impressions: Service Date/Time: Sunday, October 16, 2016 14:58 - CONCLUSION: 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 Unremarkable posterior fossa. I do not see an etiology for the patient's persistent dizziness. Boom Philippe MD FACR Carotid Artery Ultrasound 10/11/16 0000 Signed Impressions: Service Date/Time: Tuesday, October 11, 2016 10:51 - CONCLUSION: 1. Mild visible plaque in the carotid arteries bilaterally. No hemodynamically significant stenosis identified. Vertebral artery flow antegrade bilaterally. Gordo Gibson MD Head CT 10/07/16 191 Signed Impressions: Service Date/Time: Friday, October 07, 2016 20:30 - CONCLUSION: 1. No evidence of acute hemorrhage or mass effect. 2. Right high frontal encephalomalacia suggesting old infarction. Prior aneurysm procedure with metallic artifact in the supraclinoid region. Brian Morse MD Chest X-Ray 10/07/161918 Signed Impressions: Service Date/Time: Friday, October 07, 2016 20:05 - CONCLUSION: The lungs are clear. Brian Morse MD Objective Remarks GENERAL: Alert, NAD. SKIN: Warm and dry. HEAD: Normocephalic. EYES: No scleral icterus. No injection or drainage. NECK: Supple, trachea midline. No JVD or lymphadenopathy. CARDIOVASCULAR: Regular rate and rhythm without murmurs, gallops, or rubs. RESPIRATORY: Breath sounds equal bilaterally. No accessory muscle use. GASTROINTESTINAL: Abdomen soft, non-tender, nondistended. MUSCULOSKELETAL: No cyanosis, or edema. BACK: Nontender without obvious deformity. No CVA tenderness. Procedures Echo 10/08/2016. The cavity size was normal. Wall thickness was normal. Systolic function was normal. The estimated ejection fraction was 55%. Wall motion was normal; there were no regional wall motion abnormalities. A/P Problem List: (1) Orthostatic hypotension ICD Code: I95.1 Status: Acute (2) Syncope ICD Code: R55 Status: Resolved (3) ALFONSO (acute kidney injury) ICD Code: N17.9 Status: Resolved (4) Schizophrenia ICD Code: F20.9 Status: Chronic (5) UTI (urinary tract infection) ICD Code: N39.0 Status: Resolved (6) Prediabetes ICD Code: R73.03 Status: Acute (7) Microcytic anemia ICD Code: D50.9 Status: Acute Assessment and Plan Ms. Packer is a 61-year-old female with a PMH of Schizophrenia was brought to the ER by Home Health Cia[facility] Lum[employer] Injector with whom the patient lives secondary to multiple falls. - Syncope: likely vasovagal secondary to dehydration/orthostatic hypotension. CT Head w/ no acute findings. - Orthostatic Hypotension - Positive orthostatic vitals signs on admission, secondary to dehydration. BP improved with hydration. - However, orthostatics remains positive on 10/17/2016 as well. Today, supine BP 116/73, HR 78 and sitting up 54/38, HR 78. - Echo essentially normal with EF 55%. - EKG showed NSR with 1st degree AV block which is typically a benign finding. - Midodrine 10mg TID was started but patient's blood pressure increased too high - sometimes systolic 180s range. - continue Salt tablets. Will start Fludrocortisone 0.1mg Qday. - CBC, BMP in the AM. - Renal Insufficiency: Creatinine 1.45 improved to normal range with hydration. - UTI - received Cipro. Urine cx mixed normal corbin. - Schizophrenia: Per report, pt recently d/c'd from [place] after 1yr hospitalization for Schizophrenia 5 days ago, currently under the care of local Healthcare Associate. Not on antipsychotic medications per review of home meds. - Diabetes mellitus - Continue Metformin 500mg BID and Sliding scale insulin. Full code. Lovenox Qday. Discharge : Would be a difficult placement. Discussed with CM. Problem Qualifiers (1) Syncope: Qualified Code: R55 - Syncope, unspecified syncope type (2) Schizophrenia: Qualified Code: F20.9 - Schizophrenia, unspecified type Leann Rivers DO Oct 17, 2016 2:30 pm
[2016-10-17] MEDS: FLUDROCORTISONE ACETATE 0.1 MG TAB PO SCH (17:21)
[2016-10-18] VITALS: BP 140/83; PULSE 82; RESP 16; TEMP 97.7; O2SAT 96
[2016-10-18 04:00] VITALS: BP_SYST 61; BP_SYST 91; BP_DIAS 44; BP_DIAS 63; PULSE 74; RESP 16; TEMP 97.7; O2SAT 97
[2016-10-18] MEDS: PYRIDOSTIGMINE BROMIDE 60 MG TAB PO SCH ×3 (06:15→22:07)
[2016-10-18] MEDS: INSULIN ASPART SUPPLEMENTAL SCALE SQ SCH ×4 (06:17→21:00)
[2016-10-18] MEDS: SODIUM CHLOR 0.9% 1000 ML INJ 1,000 ML IV SCH ×2 (06:20→22:04)
[2016-10-18 08:00] VITALS: BP_SYST 122; BP_SYST 91; BP_DIAS 67; BP_DIAS 75; PULSE 68; RESP 18; TEMP 96.2; O2SAT 98
[2016-10-18] MEDS: SODIUM CHLORIDE 0.9% FLUSH 5 ML FLUSH FLUSH SCH ×2 (09:00→22:03)
[2016-10-18] MEDS: SODIUM CHLORIDE 1 GRAM TAB PO SCH ×2 (09:26→22:03)
[2016-10-18] MEDS: MULTIVITAMINS/MINERALS THERAPEUTIC TAB PO SCH (09:26)
[2016-10-18] MEDS: FOLIC ACID 1 MG TAB PO SCH (09:26)
[2016-10-18] MEDS: FERROUS FUMARATE 325 MG TAB (106 MG ELEMENTAL IRON) PO SCH (09:26)
[2016-10-18] MEDS: FLUDROCORTISONE ACETATE 0.1 MG TAB PO SCH (09:26)
[2016-10-18] MEDS: metFORMIN HCL 500 MG TAB PO SCH ×2 (09:26→16:53)
[2016-10-18] MEDS: ENOXAPARIN SODIUM 40 MG/0.4 ML SYRINGE SQ SCH (09:26)
[2016-10-18 12:00] VITALS: BP 140/90; PULSE 73; RESP 18; TEMP 96.9; O2SAT 98
--- NOTE | 2016-10-18 12:57 | HHI.PR ---
Subjective Remarks Follow-up for syncope, orthostatic hypotension. Ms. Packer complains of feeling lightheadedness when she sits up. In supine position, she denies any chest pain, shortness of breath, fever or chills. Objective Vitals Vital Signs Date Time Temp Pulse Resp B/P Pulse Ox O2 Delivery O2 Flow Rate FiO2 10/18/16 12:00 96.9 73 18 140/90 98 Automatic Cuff 10/18/16 08:00 96.2 68 18 122/75 98 91/67 10/18/16 04:00 97.7 74 16 91/63 97 61/44 10/18/16 00:00 97.7 82 16 140/83 96 10/17/16 20:00 99.7 84 16 148/97 96 10/17/16 16:00 98.5 80 18 145/83 98 10/17/16 13:37 116/73 54/38 I/O 10/17/16 10/17/16 10/17/16 10/18/16 10/18/16 10/18/16 07:00 15:00 23:00 07:00 15:00 23:00 Intake Total 900 ml 1233 ml 1350 ml 1200 ml Output Total 650 ml 2000 ml Balance 900 ml 1233 ml 700 ml -800 ml Intake Oral 240 ml 360 ml 300 ml IV Total 900 ml 993 ml 990 ml 900 ml Output Urine Total 650 ml 2000 ml # Voids 3 2 # Bowel Movements 2 1 0 1 Objective Remarks GENERAL: Alert, NAD. SKIN: Warm and dry. HEAD: Normocephalic. EYES: No scleral icterus. No injection or drainage. NECK: Supple, trachea midline. No JVD or lymphadenopathy. CARDIOVASCULAR: Regular rate and rhythm without murmurs, gallops, or rubs. RESPIRATORY: Breath sounds equal bilaterally. No accessory muscle use. GASTROINTESTINAL: Abdomen soft, non-tender, nondistended. MUSCULOSKELETAL: No cyanosis, or edema. BACK: Nontender without obvious deformity. No CVA tenderness. Procedures Echo 10/08/2016. The cavity size was normal. Wall thickness was normal. Systolic function was normal. The estimated ejection fraction was 55%. Wall motion was normal; there were no regional wall motion abnormalities. A/P Problem List: (1) Orthostatic hypotension ICD Code: I95.1 Status: Acute (2) Syncope ICD Code: R55 Status: Resolved (3) ALFONSO (acute kidney injury) ICD Code: N17.9 Status: Resolved (4) Schizophrenia ICD Code: F20.9 Status: Chronic (5) UTI (urinary tract infection) ICD Code: N39.0 Status: Resolved (6) Prediabetes ICD Code: R73.03 Status: Acute (7) Microcytic anemia ICD Code: D50.9 Status: Acute Assessment and Plan Ms. Packer is a 61-year-old female with a PMH of Schizophrenia was brought to the ER by Home Health Pilot Plant Operator Helper with whom the patient lives secondary to multiple falls. - Syncope: likely vasovagal secondary to dehydration/orthostatic hypotension. CT Head w/ no acute findings. - Orthostatic Hypotension - Positive orthostatic vitals signs on admission, secondary to dehydration. BP improved with hydration. - However, orthostatics remains positive - Echo essentially normal with EF 55%. - EKG showed NSR with 1st degree AV block which is typically a benign finding. - Midodrine 10mg TID was started but patient's blood pressure increased too high - sometimes systolic 180s range. - continue Salt tablets. Continue Fludrocortisone 0.1mg Qday. - Reviewed CBC, BMP from this morning. - Would like to observe on Fludrocortisone today before increasing the dose/ frequency. - Renal Insufficiency: Creatinine 1.45 improved to normal range with hydration. - UTI - received Cipro. Urine cx mixed normal corbin. - Schizophrenia: Per report, pt recently d/c'd from [place] after 1yr hospitalization for Schizophrenia 5 days ago, currently under the care of local Healthcare Associate. Not on antipsychotic medications per review of home meds. - Diabetes mellitus - Continue Metformin 500mg BID and Sliding scale insulin. Full code. Lovenox Qday. Discharge : Would be a difficult placement. Discussed with CM. Problem Qualifiers (1) Syncope: Qualified Code: R55 - Syncope, unspecified syncope type (2) Schizophrenia: Qualified Code: F20.9 - Schizophrenia, unspecified type Leann Rivers DO Oct 18, 2016 12:57 pm
[2016-10-18 16:00] VITALS: BP 160/97; PULSE 83; RESP 18; TEMP 96.7; O2SAT 97
[2016-10-18 20:00] VITALS: BP 126/89; PULSE 80; RESP 16; TEMP 96.6; O2SAT 97
[2016-10-18] MEDS: ACETAMINOPHEN 325 MG TAB PO PRN (22:02)
[2016-10-19] VITALS: BP 130/74; PULSE 81; RESP 16; TEMP 96; O2SAT 98
[2016-10-19 04:00] VITALS: BP 130/80; PULSE 71; RESP 16; TEMP 97.4; O2SAT 97
[2016-10-19] MEDS: SODIUM CHLOR 0.9% 1000 ML INJ 1,000 ML IV SCH ×2 (05:06→12:53)
[2016-10-19] MEDS: INSULIN ASPART SUPPLEMENTAL SCALE SQ SCH ×4 (05:06→21:00)
[2016-10-19] MEDS: PYRIDOSTIGMINE BROMIDE 60 MG TAB PO SCH ×3 (05:07→21:01)
[2016-10-19 07:50] VITALS: BP_SYST 115; BP_SYST 70; BP_DIAS 42; BP_DIAS 79; PULSE 63; PULSE 64; RESP 20; TEMP 96.4; O2SAT 97
[2016-10-19] MEDS: SODIUM CHLORIDE 0.9% FLUSH 5 ML FLUSH FLUSH SCH ×2 (09:00→21:00)
[2016-10-19] MEDS: ENOXAPARIN SODIUM 40 MG/0.4 ML SYRINGE SQ SCH (10:08)
[2016-10-19] MEDS: MULTIVITAMINS/MINERALS THERAPEUTIC TAB PO SCH (10:09)
[2016-10-19] MEDS: FERROUS FUMARATE 325 MG TAB (106 MG ELEMENTAL IRON) PO SCH (10:09)
[2016-10-19] MEDS: metFORMIN HCL 500 MG TAB PO SCH ×2 (10:09→17:23)
[2016-10-19] MEDS: FLUDROCORTISONE ACETATE 0.1 MG TAB PO SCH ×2 (10:09→21:00)
[2016-10-19] MEDS: SODIUM CHLORIDE 1 GRAM TAB PO SCH ×2 (10:09→21:00)
[2016-10-19] MEDS: FOLIC ACID 1 MG TAB PO SCH (10:10)
[2016-10-19 11:50] VITALS: BP 156/95; PULSE 69; RESP 20; TEMP 97.1; O2SAT 98
--- NOTE | 2016-10-19 14:05 | HHI.PR ---
Subjective Remarks Follow-up for orthostatic hypotension. Patient complains of persistent dizziness and lightheadedness on sitting up. Denies any chest pain, shortness of breath, fever or chills. Tolerating diet well. Objective Vitals Vital Signs Date Time Temp Pulse Resp B/P Pulse Ox O2 Delivery O2 Flow Rate FiO2 10/19/16 07:50 64 70/42 10/19/16 07:50 96.4 63 20 115/79 97 10/19/16 04:00 97.4 71 16 130/80 97 10/19/16 00:00 96.0 81 16 130/74 98 10/18/16 23:51 16 10/18/16 20:00 96.6 80 16 126/89 97 10/18/16 16:00 96.7 83 18 160/97 97 I/O 10/18/16 10/18/16 10/18/16 10/19/16 10/19/16 10/19/16 07:00 15:00 23:00 07:00 15:00 23:00 Intake Total 1200 ml 1166 ml 360 ml 200 ml Output Total 2000 ml 300 ml 600 ml Balance -800 ml 1166 ml 60 ml -400 ml Intake Oral 300 ml 480 ml 360 ml 200 ml IV Total 900 ml 686 ml Output Urine Total 2000 ml 300 ml 600 ml # Voids 4 # Bowel Movements 1 1 1 1 Imaging Last Impressions Brain MRI 10/16/16 0000 Signed Impressions: Service Date/Time: Sunday, October 16, 2016 14:58 - CONCLUSION: 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 Unremarkable posterior fossa. I do not see an etiology for the patient's persistent dizziness. Boom Philippe MD FACR Carotid Artery Ultrasound 10/11/16 0000 Signed Impressions: Service Date/Time: Tuesday, October 11, 2016 10:51 - CONCLUSION: 1. Mild visible plaque in the carotid arteries bilaterally. No hemodynamically significant stenosis identified. Vertebral artery flow antegrade bilaterally. Gordo Gibson MD Head CT 10/07/161918 Signed Impressions: Service Date/Time: Friday, October 07, 2016 20:30 - CONCLUSION: 1. No evidence of acute hemorrhage or mass effect. 2. Right high frontal encephalomalacia suggesting old infarction. Prior aneurysm procedure with metallic artifact in the supraclinoid region. Brian Morse MD Chest X-Ray 1/28/17 1919 Signed Impressions: Service Date/Time: Friday, October 07, 2016 20:05 - CONCLUSION: The lungs are clear. Brian Morse MD Objective Remarks GENERAL: Alert, NAD. SKIN: Warm and dry. HEAD: Normocephalic. EYES: No scleral icterus. No injection or drainage. NECK: Supple, trachea midline. No JVD or lymphadenopathy. CARDIOVASCULAR: Regular rate and rhythm without murmurs, gallops, or rubs. RESPIRATORY: Breath sounds equal bilaterally. No accessory muscle use. GASTROINTESTINAL: Abdomen soft, non-tender, nondistended. MUSCULOSKELETAL: No cyanosis, or edema. BACK: Nontender without obvious deformity. No CVA tenderness. Procedures Echo 10/08/2016. The cavity size was normal. Wall thickness was normal. Systolic function was normal. The estimated ejection fraction was 55%. Wall motion was normal; there were no regional wall motion abnormalities. A/P Problem List: (1) Orthostatic hypotension ICD Code: I95.1 Status: Acute (2) Syncope ICD Code: R55 Status: Resolved (3) ALFONSO (acute kidney injury) ICD Code: N17.9 Status: Resolved (4) Schizophrenia ICD Code: F20.9 Status: Chronic (5) UTI (urinary tract infection) ICD Code: N39.0 Status: Resolved (6) Prediabetes ICD Code: R73.03 Status: Acute (7) Microcytic anemia ICD Code: D50.9 Status: Acute Assessment and Plan Ms. Packer is a 61-year-old female with a PMH of Schizophrenia was brought to the ER by Home Health Legal Analyst with whom the patient lives secondary to multiple falls. - Syncope: likely vasovagal secondary to dehydration/orthostatic hypotension. CT Head w/ no acute findings. - Persistent Orthostatic Hypotension - Positive orthostatic vitals signs on admission, secondary to dehydration. BP improved with hydration. - However, orthostatics remains positive - Echo essentially normal with EF 55%. - EKG showed NSR with 1st degree AV block which is typically a benign finding. - Increase Fludrocortisone to 0.1mg BID. May increase upto 0.3mg - no additional benefit beyond that. Continue salt tablets. - Will start Midodrine 2.5mg TID, titrate up as needed. - Renal Insufficiency: Creatinine 1.45 improved to normal range with hydration. - UTI - received Cipro. Urine cx mixed normal corbin. - Schizophrenia: Per report, pt recently d/c'd from [place] after 1yr hospitalization for Schizophrenia 5 days ago, currently under the care of local Healthcare Associate. Not on antipsychotic medications per review of home meds. - Diabetes mellitus - Continue Metformin 500mg BID and Sliding scale insulin. Full code. Lovenox Qday. Discharge : Would be a difficult placement. Discussed with CM. Problem Qualifiers (1) Syncope: Qualified Code: R55 - Syncope, unspecified syncope type (2) Schizophrenia: Qualified Code: F20.9 - Schizophrenia, unspecified type Leann Rivers DO Oct 19, 2016 2:05 pm
[2016-10-19] MEDS ORDERED: PILL SPLITTER OTHER PRN (14:15)
[2016-10-19 15:46] VITALS: BP 128/82; PULSE 70; RESP 20; TEMP 95.8; O2SAT 98
[2016-10-19] MEDS: MIDODRINE 5 MG TAB PO SCH (17:23)
[2016-10-19 20:00] VITALS: BP 118/71; PULSE 73; RESP 16; TEMP 96.7; O2SAT 97
[2016-10-20] VITALS (8 sets, daily range): BP systolic 89–147; BP diastolic 54–102; PULSE 64–75; RESP 15–20; TEMP 96.4–98.6; O2SAT 95–98
[2016-10-20] MEDS: SODIUM CHLOR 0.9% 1000 ML INJ 1,000 ML IV SCH ×4 (01:51→21:46)
[2016-10-20] MEDS: MIDODRINE 5 MG TAB PO SCH ×3 (06:16→17:46)
[2016-10-20] MEDS: PYRIDOSTIGMINE BROMIDE 60 MG TAB PO SCH ×3 (06:16→21:42)
[2016-10-20] MEDS: INSULIN ASPART SUPPLEMENTAL SCALE SQ SCH ×4 (06:20→21:40)
[2016-10-20] MEDS: SODIUM CHLORIDE 0.9% FLUSH 5 ML FLUSH FLUSH SCH ×2 (09:00→21:42)
[2016-10-20] MEDS: ENOXAPARIN SODIUM 40 MG/0.4 ML SYRINGE SQ SCH (09:56)
[2016-10-20] MEDS: FERROUS FUMARATE 325 MG TAB (106 MG ELEMENTAL IRON) PO SCH (09:57)
[2016-10-20] MEDS: FOLIC ACID 1 MG TAB PO SCH (09:57)
[2016-10-20] MEDS: MULTIVITAMINS/MINERALS THERAPEUTIC TAB PO SCH (09:57)
[2016-10-20] MEDS: metFORMIN HCL 500 MG TAB PO SCH ×2 (09:57→17:46)
[2016-10-20] MEDS: SODIUM CHLORIDE 1 GRAM TAB PO SCH ×2 (09:57→21:42)
[2016-10-20] MEDS: FLUDROCORTISONE ACETATE 0.1 MG TAB PO SCH ×2 (09:57→21:42)
[2016-10-20 11:49] LABS: AUTOMATED NEUTROPHIL # 3.9 TH/MM3 (1.8-7.7); BASOPHIL % 0.6 % (0.0-2.0); EOSINOPHIL % 0.2 % (0.0-4.0); HEMATOCRIT 28.9 % (35.0-46.0); HEMO FLAGS DIFF FINAL; LYMPH % 21.6 % (9.0-44.0); LYMPHOCYTE # 1.2 TH/MM3 (1.0-4.8); MEAN CELL VOLUME 78.4 FL (80.0-100.0); MEAN CORPUSCULAR HEMOGLOBIN 26.2 PG (27.0-34.0); MEAN CORPUSCULAR HGB CONC 33.4 % (32.0-36.0); NEUT % 68.6 % (16.0-70.0); PLATELET COUNT 232 TH/MM3 (150-450); RED BLOOD COUNT 3.68 MIL/MM3 (4.00-5.30); RED CELL DISTRIBUTION WIDTH 15.7 % (11.6-17.2); WHITE BLOOD COUNT 5.6 TH/MM3 (4.0-11.0)
[2016-10-20 12:13] LABS: BICARBONATE 27.8 MEQ/L (21.0-32.0); MAGNESIUM 1.4 MG/DL (1.5-2.5); POTASSIUM 3.1 MEQ/L (3.5-5.1)
--- NOTE | 2016-10-20 13:39 | HHI.PR ---
Subjective Remarks Follow-up orthostatic hypotension. Denies dizziness. Discussed with RN, patient still orthostatic drop by almost 20 points when patient was sitting up. Objective Vitals Vital Signs Date Time Temp Pulse Resp B/P Pulse Ox O2 Delivery O2 Flow Rate FiO2 10/20/16 12:00 97.9 64 18 116/84 97 10/20/16 10:21 72 89/54 10/20/16 10:20 72 137/86 10/20/16 08:00 98.2 71 16 129/85 97 10/20/16 05:20 96.4 71 16 100/60 98 10/20/16 01:20 97.3 68 15 133/82 95 10/19/16 20:00 96.7 73 16 118/71 97 10/19/16 15:46 95.8 70 20 128/82 98 I/O 10/19/16 10/19/16 10/19/16 10/20/16 10/20/16 10/20/16 07:00 15:00 23:00 07:00 15:00 23:00 Intake Total 200 ml 240 ml Output Total 600 ml Balance -400 ml 240 ml Intake Oral 200 ml 240 ml Output Urine Total 600 ml # Voids 2 2 1 # Bowel Movements 1 1 1 Result Diagram: 10/20/16 1104 10/20/16 1104 Imaging Last Impressions Brain MRI 10/16/16 0000 Signed Impressions: Service Date/Time: Sunday, October 16, 2016 14:58 - CONCLUSION: 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 Unremarkable posterior fossa. I do not see an etiology for the patient's persistent dizziness. Boom Philippe MD FACR Carotid Artery Ultrasound 10/11/16 0000 Signed Impressions: Service Date/Time: Tuesday, October 11, 2016 10:51 - CONCLUSION: 1. Mild visible plaque in the carotid arteries bilaterally. No hemodynamically significant stenosis identified. Vertebral artery flow antegrade bilaterally. Gordo Gibson MD Head CT 10/07/161918 Signed Impressions: Service Date/Time: Friday, October 07, 2016 20:30 - CONCLUSION: 1. No evidence of acute hemorrhage or mass effect. 2. Right high frontal encephalomalacia suggesting old infarction. Prior aneurysm procedure with metallic artifact in the supraclinoid region. Brian Morse MD Chest X-Ray 10/07/161918 Signed Impressions: Service Date/Time: Friday, October 07, 2016 20:05 - CONCLUSION: The lungs are clear. Brian Morse MD Objective Remarks GENERAL: Alert, NAD. SKIN: Warm and dry. HEAD: Normocephalic. EYES: No scleral icterus. No injection or drainage. NECK: Supple, trachea midline. No JVD or lymphadenopathy. CARDIOVASCULAR: Regular rate and rhythm without murmurs, gallops, or rubs. RESPIRATORY: Breath sounds equal bilaterally. No accessory muscle use. GASTROINTESTINAL: Abdomen soft, non-tender, nondistended. MUSCULOSKELETAL: No cyanosis but with trace leg edema. BACK: Nontender without obvious deformity. No CVA tenderness. Procedures Echo 10/08/2016. The cavity size was normal. Wall thickness was normal. Systolic function was normal. The estimated ejection fraction was 55%. Wall motion was normal; there were no regional wall motion abnormalities. A/P Problem List: (1) Orthostatic hypotension ICD Code: I95.1 Status: Acute (2) Syncope ICD Code: R55 Status: Resolved (3) ALFONSO (acute kidney injury) ICD Code: N17.9 Status: Resolved (4) Schizophrenia ICD Code: F20.9 Status: Chronic (5) UTI (urinary tract infection) ICD Code: N39.0 Status: Resolved (6) Prediabetes ICD Code: R73.03 Status: Acute (7) Microcytic anemia ICD Code: D50.9 Status: Acute Assessment and Plan Ms. Packer is a 61-year-old female with a PMH of Schizophrenia was brought to the ER by Home Health Cna Instructor with whom the patient lives secondary to multiple falls. - Syncope: likely vasovagal secondary to dehydration/orthostatic hypotension. CT Head w/ no acute findings. - Persistent Orthostatic Hypotension - Positive orthostatic vitals signs on admission, secondary to dehydration. BP improved with hydration. - However, orthostatics remains positive - Echo essentially normal with EF 55%. - EKG showed NSR with 1st degree AV block which is typically a benign finding. - Increase Fludrocortisone to 0.1mg BID. May increase upto 0.3mg - no additional benefit beyond that. Continue salt tablets. -Continue Midodrine 2.5mg TID, titrate up as needed. Check cortisol. Status post neurology evaluation. Consider cardiology consult -Acute kidney injury: Creatinine 1.45 improved to normal range with hydration. Decrease IV fluid - UTI - received Cipro. Urine cx mixed normal corbin. - Schizophrenia: Per report, pt recently d/c'd from [place] after 1yr hospitalization for Schizophrenia 5 days ago, currently under the care of local Healthcare Associate. Not on antipsychotic medications per review of home meds. - Diabetes mellitus - Continue Metformin 500mg BID and Sliding scale insulin. Full code. Lovenox Qday. Discharge : Refer to rehabilitation. Discussed with CM. Problem Qualifiers (1) Syncope: Qualified Code: R55 - Syncope, unspecified syncope type (2) Schizophrenia: Qualified Code: F20.9 - Schizophrenia, unspecified type Jamie Fleming MD Oct 20, 2016 13:38
[2016-10-21 01:20] VITALS: BP 140/89; PULSE 72; RESP 17; TEMP 98.6; O2SAT 97
[2016-10-21 05:20] VITALS: BP 106/71; PULSE 71; RESP 17; TEMP 97.3; O2SAT 98
[2016-10-21] MEDS: PYRIDOSTIGMINE BROMIDE 60 MG TAB PO SCH ×3 (06:20→20:14)
[2016-10-21] MEDS: MIDODRINE 5 MG TAB PO SCH ×3 (06:20→17:05)
[2016-10-21] MEDS: INSULIN ASPART SUPPLEMENTAL SCALE SQ SCH ×4 (06:24→21:31)
[2016-10-21 08:00] VITALS: BP_SYST 105; BP_SYST 56; BP_DIAS 41; BP_DIAS 65; PULSE 69; RESP 18; TEMP 96.3; O2SAT 97
[2016-10-21 08:30] LABS: C. DIFF EPI 027 PRESUMPTIVE NEGATIVE (NEGATIVE); C. DIFF TOXIN PCR NEGATIVE (NEGATIVE)
[2016-10-21] MEDS: LACTOBACILLUS ACIDOPHILUS TAB PO SCH ×3 (08:50→17:04)
[2016-10-21] MEDS: SODIUM CHLORIDE 0.9% FLUSH 5 ML FLUSH FLUSH SCH ×2 (08:50→20:11)
[2016-10-21] MEDS: metFORMIN HCL 500 MG TAB PO SCH ×2 (08:50→17:05)
[2016-10-21] MEDS: NS + KCL 20 MEQ INJ 1,000 ML IV SCH ×2 (08:50→20:13)
[2016-10-21] MEDS: FOLIC ACID 1 MG TAB PO SCH (08:51)
[2016-10-21] MEDS: FLUDROCORTISONE ACETATE 0.1 MG TAB PO SCH ×2 (08:51→20:09)
[2016-10-21] MEDS: MULTIVITAMINS/MINERALS THERAPEUTIC TAB PO SCH (08:51)
[2016-10-21] MEDS: ENOXAPARIN SODIUM 40 MG/0.4 ML SYRINGE SQ SCH (08:51)
[2016-10-21] MEDS: SODIUM CHLORIDE 1 GRAM TAB PO SCH ×2 (08:51→20:09)
[2016-10-21] MEDS: FERROUS FUMARATE 325 MG TAB (106 MG ELEMENTAL IRON) PO SCH (08:51)
[2016-10-21 11:18] LABS: MAGNESIUM 1.3 MG/DL (1.5-2.5); POTASSIUM 3.3 MEQ/L (3.5-5.1)
[2016-10-21 12:00] VITALS: BP 151/96; PULSE 68; RESP 18; TEMP 96.5; O2SAT 99
--- NOTE | 2016-10-21 12:05 | HHI.PR ---
Subjective Remarks Follow-up orthostatic hypotension. Still orthostatic and was dizzy this morning. Now complaining of loose stools. Discussed with RN Objective Vitals Vital Signs Date Time Temp Pulse Resp B/P Pulse Ox O2 Delivery O2 Flow Rate FiO2 10/21/16 08:00 96.3 69 18 105/65 97 56/41 Manual Cuff/Palpation 10/21/16 05:20 97.3 71 17 106/71 98 10/21/16 01:20 98.6 72 17 140/89 97 10/20/16 20:00 98.3 74 17 147/102 98 10/20/16 16:00 98.6 75 20 90/54 96 I/O 10/20/16 10/20/16 10/20/16 10/21/16 10/21/16 10/21/16 07:00 15:00 23:00 07:00 15:00 23:00 Intake Total 240 ml Balance 240 ml Intake Oral 240 ml # Voids 1 2 # Bowel Movements 2 1 Result Diagram: 10/20/16 1104 10/21/16 1024 Imaging Last Impressions Brain MRI 10/16/16 0000 Signed Impressions: Service Date/Time: Sunday, October 16, 2016 14:58 - CONCLUSION: 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 Unremarkable posterior fossa. I do not see an etiology for the patient's persistent dizziness. Boom Philippe MD FACR Carotid Artery Ultrasound 10/11/16 0000 Signed Impressions: Service Date/Time: Tuesday, October 11, 2016 10:51 - CONCLUSION: 1. Mild visible plaque in the carotid arteries bilaterally. No hemodynamically significant stenosis identified. Vertebral artery flow antegrade bilaterally. Gordo Gibson MD Head CT 10/07/161918 Signed Impressions: Service Date/Time: Friday, October 07, 2016 20:30 - CONCLUSION: 1. No evidence of acute hemorrhage or mass effect. 2. Right high frontal encephalomalacia suggesting old infarction. Prior aneurysm procedure with metallic artifact in the supraclinoid region. Brian Morse MD Chest X-Ray 10/07/161918 Signed Impressions: Service Date/Time: Friday, October 07, 2016 20:05 - CONCLUSION: The lungs are clear. Brian Morse MD Objective Remarks GENERAL: Alert, NAD. SKIN: Warm and dry. HEAD: Normocephalic. EYES: No scleral icterus. No injection or drainage. NECK: Supple, trachea midline. No JVD or lymphadenopathy. CARDIOVASCULAR: Regular rate and rhythm without murmurs, gallops, or rubs. RESPIRATORY: Breath sounds equal bilaterally. No accessory muscle use. GASTROINTESTINAL: Abdomen soft, non-tender, nondistended. MUSCULOSKELETAL: No cyanosis but with trace leg edema. BACK: Nontender without obvious deformity. No CVA tenderness. Procedures Echo 10/08/2016. The cavity size was normal. Wall thickness was normal. Systolic function was normal. The estimated ejection fraction was 55%. Wall motion was normal; there were no regional wall motion abnormalities. A/P Problem List: (1) Orthostatic hypotension ICD Code: I95.1 Status: Acute (2) Syncope ICD Code: R55 Status: Resolved (3) ALFONSO (acute kidney injury) ICD Code: N17.9 Status: Resolved (4) Schizophrenia ICD Code: F20.9 Status: Chronic (5) UTI (urinary tract infection) ICD Code: N39.0 Status: Resolved (6) Prediabetes ICD Code: R73.03 Status: Acute (7) Microcytic anemia ICD Code: D50.9 Status: Acute Assessment and Plan Ms. Packer is a 61-year-old female with a PMH of Schizophrenia was brought to the ER by Home Health Work Adjustment Instructor with whom the patient lives secondary to multiple falls. - Syncope: likely vasovagal secondary to dehydration/orthostatic hypotension. CT Head w/ no acute findings. - Persistent Orthostatic Hypotension - Positive orthostatic vitals signs on admission, secondary to dehydration. BP improved with hydration. - However, orthostatics remains positive - Echo essentially normal with EF 55%. - EKG showed NSR with 1st degree AV block which is typically a benign finding. - Increase Fludrocortisone to 0.1mg BID. May increase upto 0.3mg - no additional benefit beyond that. Continue salt tablets. -Increase Midodrine to 5 mg TID, titrate up as needed. Cortisol 12 despite hypotension will start decadron. Status post neurology evaluation. Consider cardiology consult -Acute kidney injury: Creatinine 1.45 improved to normal range with hydration. Ct IV fluid -diarrhea. Check c difff and start lactinex - UTI - received Cipro. Urine cx mixed normal corbin. - Schizophrenia: Per report, pt recently d/c'd from [place] after 1yr hospitalization for Schizophrenia 5 days ago, currently under the care of local Healthcare Associate. Not on antipsychotic medications per review of home meds. - Diabetes mellitus - Continue Metformin 500mg BID and Sliding scale insulin. Full code. Lovenox Qday. Discharge : Refer to rehabilitation. Discussed with CM. Problem Qualifiers (1) Syncope: Qualified Code: R55 - Syncope, unspecified syncope type (2) Schizophrenia: Qualified Code: F20.9 - Schizophrenia, unspecified type Jamie Fleming MD Oct 21, 2016 12:05
[2016-10-21] MEDS ORDERED: POTASSIUM CHLORIDE 20 MEQ CONTROLLED RELEASE TAB PO ONE (12:15)
[2016-10-21] MEDS ORDERED: POTASSIUM CHLORIDE 10 MEQ CONTROLLED RELEASE TAB PO ONE (12:15)
[2016-10-21] MEDS: MAGNESIUM SULFATE 1 GM PREMIX 100 ML IV SCH ×2 (13:08→14:38)
[2016-10-21] MEDS ORDERED: DEXAMETHASONE SOD PHOS 4 MG/ML VIAL IV PUSH ONE (15:30)
[2016-10-21 16:00] VITALS: BP 94/61; PULSE 69; RESP 18; TEMP 97.9; O2SAT 97
[2016-10-21 20:06] VITALS: BP 170/103; PULSE 81; RESP 16; TEMP 98.3; O2SAT 95
[2016-10-22] MEDS: HYDROCORTISONE SOD SUCCINATE 100 MG VIAL IV PUSH SCH ×4 (00:24→20:49)
[2016-10-22 00:36] VITALS: BP 103/63; PULSE 84; RESP 18; TEMP 97.1; O2SAT 95
[2016-10-22 05:11] VITALS: BP 123/81; PULSE 83; RESP 18; TEMP 97.9; O2SAT 95
[2016-10-22] MEDS: PYRIDOSTIGMINE BROMIDE 60 MG TAB PO SCH ×3 (05:18→20:49)
[2016-10-22] MEDS: MIDODRINE 5 MG TAB PO SCH ×3 (05:18→17:30)
[2016-10-22] MEDS: INSULIN ASPART SUPPLEMENTAL SCALE SQ SCH ×4 (05:21→20:49)
[2016-10-22 07:49] LABS: AUTOMATED NEUTROPHIL # 5.9 TH/MM3 (1.8-7.7); BASOPHIL % 0.5 % (0.0-2.0); EOSINOPHIL % 0.1 % (0.0-4.0); HEMATOCRIT 31.4 % (35.0-46.0); HEMO FLAGS DIFF FINAL; LYMPH % 15.9 % (9.0-44.0); LYMPHOCYTE # 1.2 TH/MM3 (1.0-4.8); MEAN CELL VOLUME 78.5 FL (80.0-100.0); MEAN CORPUSCULAR HEMOGLOBIN 25.7 PG (27.0-34.0); MEAN CORPUSCULAR HGB CONC 32.7 % (32.0-36.0); MONO % 4.6 % (0.0-8.0); NEUT % 78.9 % (16.0-70.0); PLATELET COUNT 244 TH/MM3 (150-450); RED BLOOD COUNT 3.99 MIL/MM3 (4.00-5.30); RED CELL DISTRIBUTION WIDTH 15.4 % (11.6-17.2); WHITE BLOOD COUNT 7.5 TH/MM3 (4.0-11.0)
[2016-10-22 07:54] LABS: BICARBONATE 24.6 MEQ/L (21.0-32.0); MAGNESIUM 1.8 MG/DL (1.5-2.5); POTASSIUM 3.6 MEQ/L (3.5-5.1)
[2016-10-22 08:00] VITALS: BP 98/58; PULSE 68; RESP 16; TEMP 97.6; O2SAT 96
[2016-10-22] MEDS: SODIUM CHLORIDE 0.9% FLUSH 5 ML FLUSH FLUSH SCH ×2 (08:24→20:49)
[2016-10-22] MEDS: ENOXAPARIN SODIUM 40 MG/0.4 ML SYRINGE SQ SCH (08:24)
[2016-10-22] MEDS: metFORMIN HCL 500 MG TAB PO SCH ×2 (09:41→17:30)
[2016-10-22] MEDS: LACTOBACILLUS ACIDOPHILUS TAB PO SCH ×3 (09:41→17:30)
[2016-10-22] MEDS: SODIUM CHLORIDE 1 GRAM TAB PO SCH ×2 (09:41→20:49)
[2016-10-22] MEDS: FLUDROCORTISONE ACETATE 0.1 MG TAB PO SCH ×2 (09:41→20:49)
[2016-10-22] MEDS: FERROUS FUMARATE 325 MG TAB (106 MG ELEMENTAL IRON) PO SCH (09:41)
[2016-10-22] MEDS: FOLIC ACID 1 MG TAB PO SCH (09:41)
[2016-10-22] MEDS: MULTIVITAMINS/MINERALS THERAPEUTIC TAB PO SCH (09:41)
[2016-10-22 12:00] VITALS: BP_SYST 142; BP_SYST 68; BP_DIAS 50; BP_DIAS 87; PULSE 67; RESP 16; TEMP 97; O2SAT 98
[2016-10-22] MEDS: NS + KCL 20 MEQ INJ 1,000 ML IV SCH ×2 (13:30→20:54)
--- NOTE | 2016-10-22 14:45 | HHI.PR ---
Subjective Remarks Follow-up orthostatic hypotension. Was dizzy earlier and remains orthostatic. Discussed with RN Objective Vitals Vital Signs Date Time Temp Pulse Resp B/P Pulse Ox O2 Delivery O2 Flow Rate FiO2 10/22/16 12:00 97.0 67 16 142/87 98 68/50 10/22/16 08:00 97.6 68 16 98/58 96 10/22/16 05:11 97.9 83 18 123/81 95 10/22/16 00:36 97.1 84 18 103/63 95 10/21/16 20:06 98.3 81 16 170/103 95 10/21/16 16:00 97.9 69 18 94/61 97 I/O 10/21/16 10/21/16 10/21/16 10/22/16 10/22/16 10/22/16 07:00 15:00 23:00 07:00 15:00 23:00 Intake Total 1754 ml Balance 1754 ml Intake Oral 840 ml IV Total 914 ml # Voids 4 3 # Bowel Movements 1 1 Result Diagram: 10/22/16 0632 10/22/16 0632 Objective Remarks GENERAL: Alert, NAD. SKIN: Warm and dry. HEAD: Normocephalic. EYES: No scleral icterus. No injection or drainage. NECK: Supple, trachea midline. No JVD or lymphadenopathy. CARDIOVASCULAR: Regular rate and rhythm without murmurs, gallops, or rubs. RESPIRATORY: Breath sounds equal bilaterally. No accessory muscle use. GASTROINTESTINAL: Abdomen soft, non-tender, nondistended. MUSCULOSKELETAL: No cyanosis but with trace leg edema. BACK: Nontender without obvious deformity. No CVA tenderness. Procedures Echo 10/08/2016. The cavity size was normal. Wall thickness was normal. Systolic function was normal. The estimated ejection fraction was 55%. Wall motion was normal; there were no regional wall motion abnormalities. A/P Problem List: (1) Orthostatic hypotension ICD Code: I95.1 Status: Acute (2) Syncope ICD Code: R55 Status: Resolved (3) ALFONSO (acute kidney injury) ICD Code: N17.9 Status: Resolved (4) Schizophrenia ICD Code: F20.9 Status: Chronic (5) UTI (urinary tract infection) ICD Code: N39.0 Status: Resolved (6) Prediabetes ICD Code: R73.03 Status: Acute (7) Microcytic anemia ICD Code: D50.9 Status: Acute Assessment and Plan Ms. Packer is a 61-year-old female with a PMH of Schizophrenia was brought to the ER by Home Health Industrial Order Clerk with whom the patient lives secondary to multiple falls. - Syncope: likely vasovagal secondary to dehydration/orthostatic hypotension. CT Head w/ no acute findings. - Persistent Orthostatic Hypotension - Positive orthostatic vitals signs on admission, secondary to dehydration. BP improved with hydration. - However, orthostatics remains positive - Echo essentially normal with EF 55%. - EKG showed NSR with 1st degree AV block which is typically a benign finding. - Increase Fludrocortisone to 0.1mg BID. May increase upto 0.3mg - no additional benefit beyond that. Continue salt tablets. -Increase Midodrine to 5 mg TID, titrate up as needed. Cortisol 12 despite hypotension will continue IV hydrocortisone status post decadron. Status post neurology evaluation. Consider cardiology consult -Acute kidney injury: Creatinine 1.45 improved to normal range with hydration. Ct IV fluid -diarrhea. Negative c difff and start Lomotil as needed and continue lactinex - UTI - received Cipro. Urine cx mixed normal corbin. - Schizophrenia: Per report, pt recently d/c'd from [place] after 1yr hospitalization for Schizophrenia 5 days ago, currently under the care of local Healthcare Associate. Not on antipsychotic medications per review of home meds. - Diabetes mellitus - Continue Metformin 500mg BID and Sliding scale insulin. Full code. Lovenox Qday. Discharge : Refer to rehabilitation. Discussed with CM. Discharge Planning Not ready for discharge Problem Qualifiers (1) Syncope: Qualified Code: R55 - Syncope, unspecified syncope type (2) Schizophrenia: Qualified Code: F20.9 - Schizophrenia, unspecified type Jamie Fleming MD Oct 22, 2016 14:45
[2016-10-22 16:00] VITALS: BP 118/80; PULSE 80; RESP 16; TEMP 95.7; O2SAT 97
[2016-10-22] MEDS ORDERED: DIPHENOXYLATE/ATROPINE 2.5 MG/0.025 MG TAB PO PRN (16:00)
[2016-10-22 19:55] VITALS: BP_SYST 143; BP_SYST 68; BP_DIAS 41; BP_DIAS 98; PULSE 83; RESP 16; TEMP 96.3; O2SAT 97
[2016-10-23] VITALS (10 sets, daily range): BP systolic 103–196; BP diastolic 71–117; PULSE 66–88; RESP 16–18; TEMP 95.7–98.1; O2SAT 96–99
[2016-10-23] MEDS: INSULIN ASPART SUPPLEMENTAL SCALE SQ SCH ×4 (06:20→21:00)
[2016-10-23] MEDS: MIDODRINE 5 MG TAB PO SCH ×3 (06:20→17:21)
[2016-10-23] MEDS: PYRIDOSTIGMINE BROMIDE 60 MG TAB PO SCH ×3 (06:21→21:35)
[2016-10-23] MEDS: HYDROCORTISONE SOD SUCCINATE 100 MG VIAL IV PUSH SCH ×3 (06:23→21:35)
[2016-10-23] MEDS: SODIUM CHLORIDE 0.9% FLUSH 5 ML FLUSH FLUSH SCH ×2 (08:14→21:34)
[2016-10-23] MEDS: FERROUS FUMARATE 325 MG TAB (106 MG ELEMENTAL IRON) PO SCH (08:20)
[2016-10-23] MEDS: SODIUM CHLORIDE 1 GRAM TAB PO SCH ×2 (08:20→21:34)
[2016-10-23] MEDS: LACTOBACILLUS ACIDOPHILUS TAB PO SCH ×3 (08:20→17:21)
[2016-10-23] MEDS: FLUDROCORTISONE ACETATE 0.1 MG TAB PO SCH (08:20)
[2016-10-23] MEDS: ENOXAPARIN SODIUM 40 MG/0.4 ML SYRINGE SQ SCH (08:20)
[2016-10-23] MEDS: MULTIVITAMINS/MINERALS THERAPEUTIC TAB PO SCH (08:20)
[2016-10-23] MEDS: metFORMIN HCL 500 MG TAB PO SCH ×2 (08:20→17:21)
[2016-10-23] MEDS: FOLIC ACID 1 MG TAB PO SCH (08:20)
[2016-10-23] MEDS: ACETAMINOPHEN 325 MG TAB PO PRN (08:21)
--- NOTE | 2016-10-23 13:40 | HHI.PR ---
Subjective Remarks Follow-up orthostatic hypotension. Improved orthostatic. BP elevated this morning complaining of transient headache. No more diarrhea. Discussed with RN Objective Vitals Vital Signs Date Time Temp Pulse Resp B/P Pulse Ox O2 Delivery O2 Flow Rate FiO2 10/23/16 12:00 114/85 10/23/16 11:50 97.5 67 18 103/73 96 10/23/16 09:53 71 103/71 10/23/16 08:00 98.1 66 18 162/117 99 10/23/16 07:50 196/112 10/23/16 04:00 97.8 85 16 170/97 96 10/23/16 00:05 95.7 88 16 115/76 99 10/22/16 19:55 96.3 83 16 143/98 97 68/41 10/22/16 16:00 95.7 80 16 118/80 97 I/O 10/22/16 10/22/16 10/22/16 10/23/16 10/23/16 10/23/16 07:00 15:00 23:00 07:00 15:00 23:00 Intake Total 480 ml 240 ml Output Total 225 ml Balance 480 ml 15 ml Intake Oral 480 ml 240 ml Output Urine Total 225 ml # Voids 6 1 Result Diagram: 10/22/16 0632 10/22/16 0632 Imaging Last Impressions Brain MRI 10/16/16 0000 Signed Impressions: Service Date/Time: Sunday, October 16, 2016 14:58 - CONCLUSION: 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 Unremarkable posterior fossa. I do not see an etiology for the patient's persistent dizziness. Boom Philippe MD FACR Carotid Artery Ultrasound 10/11/16 0000 Signed Impressions: Service Date/Time: Tuesday, October 11, 2016 10:51 - CONCLUSION: 1. Mild visible plaque in the carotid arteries bilaterally. No hemodynamically significant stenosis identified. Vertebral artery flow antegrade bilaterally. Gordo Gibson MD Head CT 10/07/16 191 Signed Impressions: Service Date/Time: Friday, October 07, 2016 20:30 - CONCLUSION: 1. No evidence of acute hemorrhage or mass effect. 2. Right high frontal encephalomalacia suggesting old infarction. Prior aneurysm procedure with metallic artifact in the supraclinoid region. Brian Morse MD Chest X-Ray 10/07/161918 Signed Impressions: Service Date/Time: Friday, October 07, 2016 20:05 - CONCLUSION: The lungs are clear. Brian Morse MD Objective Remarks GENERAL: Alert, NAD. SKIN: Warm and dry. HEAD: Normocephalic. EYES: No scleral icterus. No injection or drainage. NECK: Supple, trachea midline. No JVD or lymphadenopathy. CARDIOVASCULAR: Regular rate and rhythm without murmurs, gallops, or rubs. RESPIRATORY: Breath sounds equal bilaterally. No accessory muscle use. GASTROINTESTINAL: Abdomen soft, non-tender, nondistended. MUSCULOSKELETAL: No cyanosis but with trace leg edema. BACK: Nontender without obvious deformity. No CVA tenderness. Procedures Echo 10/08/2016. The cavity size was normal. Wall thickness was normal. Systolic function was normal. The estimated ejection fraction was 55%. Wall motion was normal; there were no regional wall motion abnormalities. A/P Problem List: (1) Orthostatic hypotension ICD Code: I95.1 Status: Acute (2) Syncope ICD Code: R55 Status: Resolved (3) ALFONSO (acute kidney injury) ICD Code: N17.9 Status: Resolved (4) Schizophrenia ICD Code: F20.9 Status: Chronic (5) UTI (urinary tract infection) ICD Code: N39.0 Status: Resolved (6) Prediabetes ICD Code: R73.03 Status: Acute (7) Microcytic anemia ICD Code: D50.9 Status: Acute Assessment and Plan Ms. Packer is a 61-year-old female with a PMH of Schizophrenia was brought to the ER by Home Health Administration Professional with whom the patient lives secondary to multiple falls. - Syncope: likely vasovagal secondary to dehydration/orthostatic hypotension. CT Head w/ no acute findings. - Persistent Orthostatic Hypotension - Positive orthostatic vitals signs on admission, secondary to dehydration. BP improved with hydration. - However, orthostatics remains positive but slowly improving since starting steroids. Now with episodic hypertension associated with headache. We'll discontinue IV fluids and decrease Florinef. We'll also taper ProAmatine - Echo essentially normal with EF 55%. - EKG showed NSR with 1st degree AV block which is typically a benign finding. - Continue salt tablets. - Cortisol 12 despite hypotension will continue IV hydrocortisone status post decadron. Status post neurology evaluation. Consider cardiology consult -Acute kidney injury: Creatinine 1.45 improved to normal range with hydration. Discontinue IV fluid -diarrhea. Negative c difff. Improved. Lomotil as needed and lactinex - UTI - received Cipro. Urine cx mixed normal corbin. - Schizophrenia: Per report, pt recently d/c'd from [place] after 1yr hospitalization for Schizophrenia 5 days ago, currently under the care of local Healthcare Associate. Not on antipsychotic medications per review of home meds. - Diabetes mellitus - Continue Metformin 500mg BID and Sliding scale insulin. Full code. Lovenox Qday. Discharge : Refer to rehabilitation. Discussed with CM. Discharge Planning Discharge planning underway. Case management following Problem Qualifiers (1) Syncope: Qualified Code: R55 - Syncope, unspecified syncope type (2) Schizophrenia: Qualified Code: F20.9 - Schizophrenia, unspecified type Jamie Fleming MD Oct 23, 2016 13:40
[2016-10-24] VITALS: BP 102/68; PULSE 94; RESP 18; TEMP 98.3; O2SAT 95
[2016-10-24 04:00] VITALS: BP 125/86; PULSE 75; RESP 17; TEMP 96.8; O2SAT 97
[2016-10-24] MEDS: PYRIDOSTIGMINE BROMIDE 60 MG TAB PO SCH ×3 (05:52→21:43)
[2016-10-24] MEDS: HYDROCORTISONE SOD SUCCINATE 100 MG VIAL IV PUSH SCH ×3 (05:52→21:43)
[2016-10-24] MEDS: INSULIN ASPART SUPPLEMENTAL SCALE SQ SCH ×4 (05:53→21:00)
[2016-10-24] MEDS: MIDODRINE 5 MG TAB PO SCH ×3 (05:54→18:18)
[2016-10-24 08:00] VITALS: BP_SYST 162; BP_SYST 174; BP_DIAS 100; BP_DIAS 104; PULSE 69; RESP 18; TEMP 97.7; O2SAT 95
[2016-10-24] MEDS: FLUDROCORTISONE ACETATE 0.1 MG TAB PO SCH (08:30)
[2016-10-24] MEDS: ENOXAPARIN SODIUM 40 MG/0.4 ML SYRINGE SQ SCH (08:56)
[2016-10-24] MEDS: MULTIVITAMINS/MINERALS THERAPEUTIC TAB PO SCH (08:56)
[2016-10-24] MEDS: metFORMIN HCL 500 MG TAB PO SCH ×2 (08:57→18:18)
[2016-10-24] MEDS: LACTOBACILLUS ACIDOPHILUS TAB PO SCH ×3 (08:57→18:17)
[2016-10-24] MEDS: FOLIC ACID 1 MG TAB PO SCH (08:57)
[2016-10-24] MEDS: SODIUM CHLORIDE 0.9% FLUSH 5 ML FLUSH FLUSH SCH ×2 (08:57→21:00)
[2016-10-24] MEDS: SODIUM CHLORIDE 1 GRAM TAB PO SCH ×2 (08:57→21:43)
[2016-10-24] MEDS: FERROUS FUMARATE 325 MG TAB (106 MG ELEMENTAL IRON) PO SCH (08:58)
--- NOTE | 2016-10-24 11:59 | HHI.PR ---
Subjective Remarks Follow-up orthostatic hypotension. BP usually is severely elevated in the morning with patient complaining of transient headache. Denies diarrhea, abdominal pain and nausea. Discussed with RN Objective Vitals Vital Signs Date Time Temp Pulse Resp B/P Pulse Ox O2 Delivery O2 Flow Rate FiO2 10/24/16 08:00 97.7 69 18 162/100 95 174/104 10/24/16 04:00 96.8 75 17 125/86 97 10/24/16 00:00 98.3 94 18 102/68 95 10/23/16 20:00 98.1 80 17 144/92 98 10/23/16 17:17 67 145/98 10/23/16 16:00 97.9 67 18 154/98 96 10/23/16 12:00 114/85 I/O 10/23/16 10/23/16 10/23/16 10/24/16 10/24/16 10/24/16 07:00 15:00 23:00 07:00 15:00 23:00 Intake Total 240 ml 480 ml Output Total 225 ml 1100 ml 1000 ml 350 ml Balance 15 ml -620 ml -1000 ml -350 ml Intake Oral 240 ml 480 ml Output Urine Total 225 ml 1100 ml 1000 ml 350 ml # Voids 1 Result Diagram: 10/22/16 0632 10/22/16 0632 Imaging Last Impressions Brain MRI 10/16/16 0000 Signed Impressions: Service Date/Time: Sunday, October 16, 2016 14:58 - CONCLUSION: 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 Unremarkable posterior fossa. I do not see an etiology for the patient's persistent dizziness. Boom Philippe MD FACR Carotid Artery Ultrasound 10/11/16 0000 Signed Impressions: Service Date/Time: Tuesday, October 11, 2016 10:51 - CONCLUSION: 1. Mild visible plaque in the carotid arteries bilaterally. No hemodynamically significant stenosis identified. Vertebral artery flow antegrade bilaterally. Gordo Gibson MD Head CT 10/07/161918 Signed Impressions: Service Date/Time: Friday, October 07, 2016 20:30 - CONCLUSION: 1. No evidence of acute hemorrhage or mass effect. 2. Right high frontal encephalomalacia suggesting old infarction. Prior aneurysm procedure with metallic artifact in the supraclinoid region. Brian Morse MD Chest X-Ray 10/07/161918 Signed Impressions: Service Date/Time: Friday, October 07, 2016 20:05 - CONCLUSION: The lungs are clear. Brian Morse MD Objective Remarks GENERAL: Alert, NAD. SKIN: Warm and dry. HEAD: Normocephalic. EYES: No scleral icterus. No injection or drainage. NECK: Supple, trachea midline. No JVD or lymphadenopathy. CARDIOVASCULAR: Regular rate and rhythm without murmurs, gallops, or rubs. RESPIRATORY: Breath sounds equal bilaterally. No accessory muscle use. GASTROINTESTINAL: Abdomen soft, non-tender, nondistended. MUSCULOSKELETAL: No cyanosis but with trace leg edema. BACK: Nontender without obvious deformity. No CVA tenderness. Procedures Echo 10/08/2016. The cavity size was normal. Wall thickness was normal. Systolic function was normal. The estimated ejection fraction was 55%. Wall motion was normal; there were no regional wall motion abnormalities. A/P Problem List: (1) Orthostatic hypotension ICD Code: I95.1 Status: Acute (2) Syncope ICD Code: R55 Status: Resolved (3) ALFONSO (acute kidney injury) ICD Code: N17.9 Status: Resolved (4) Schizophrenia ICD Code: F20.9 Status: Chronic (5) UTI (urinary tract infection) ICD Code: N39.0 Status: Resolved (6) Prediabetes ICD Code: R73.03 Status: Acute (7) Microcytic anemia ICD Code: D50.9 Status: Acute Assessment and Plan Ms. Packer is a 61-year-old female with a PMH of Schizophrenia was brought to the ER by Home Health Paralegal Secretary with whom the patient lives secondary to multiple falls. - Syncope: likely vasovagal secondary to dehydration/orthostatic hypotension. CT Head w/ no acute findings. - Persistent Orthostatic Hypotension - Positive orthostatic vitals signs on admission, secondary to dehydration. BP improved with hydration. - However, orthostatics remains positive but slowly improving since starting steroids. Now with episodic hypertension associated with headache usually in the morning but by noon time BP drops and patient complains of transient dizziness. We'll give IV fluids for 1 L and continue Florinef and ProAmatine for now - Echo essentially normal with EF 55%. - EKG showed NSR with 1st degree AV block which is typically a benign finding. - Continue salt tablets. - Adrenal insufficiency. Cortisol 12 despite hypotension will continue IV hydrocortisone status post decadron. Status post neurology evaluation. Consider cardiology consult -Acute kidney injury: Creatinine 1.45 improved to normal range with hydration. -diarrhea. Negative c difff. Improved. Lomotil as needed and lactinex - UTI - received Cipro. Urine cx mixed normal corbin. - Schizophrenia: Per report, pt recently d/c'd from [place] after 1yr hospitalization for Schizophrenia 5 days ago, currently under the care of local Healthcare Associate. Not on antipsychotic medications per review of home meds. - Diabetes mellitus - Continue Metformin 500mg BID and Sliding scale insulin. Full code. Lovenox Qday. Discharge : Refer to rehabilitation. Discussed with CM. Discharge Planning Discharge planning underway. Case management following Problem Qualifiers (1) Syncope: Qualified Code: R55 - Syncope, unspecified syncope type (2) Schizophrenia: Qualified Code: F20.9 - Schizophrenia, unspecified type Jamie Fleming MD Oct 24, 2016 11:59
[2016-10-24 12:00] VITALS: BP_SYST 101; BP_DIAS 62; BP_DIAS 68; PULSE 68; RESP 18; TEMP 97.4; O2SAT 97
[2016-10-24] MEDS ORDERED: NS + KCL 20 MEQ INJ 1,000 ML IV SCH (12:00)
[2016-10-24 17:00] VITALS: BP 140/76; PULSE 94; RESP 18; TEMP 97.5; O2SAT 92
[2016-10-24 20:00] VITALS: BP 103/68; PULSE 78; RESP 18; TEMP 98; O2SAT 97
[2016-10-25] VITALS (7 sets, daily range): BP systolic 65–176; BP diastolic 40–103; PULSE 67–85; RESP 17–20; TEMP 96.5–98.1; O2SAT 95–96
[2016-10-25] MEDS: MIDODRINE 5 MG TAB PO SCH ×3 (06:25→17:54)
[2016-10-25] MEDS: PYRIDOSTIGMINE BROMIDE 60 MG TAB PO SCH ×3 (06:27→22:31)
[2016-10-25] MEDS: HYDROCORTISONE SOD SUCCINATE 100 MG VIAL IV PUSH SCH ×3 (06:28→22:31)
[2016-10-25] MEDS: INSULIN ASPART SUPPLEMENTAL SCALE SQ SCH ×4 (06:31→21:00)
[2016-10-25] MEDS: MULTIVITAMINS/MINERALS THERAPEUTIC TAB PO SCH (08:29)
[2016-10-25] MEDS: ENOXAPARIN SODIUM 40 MG/0.4 ML SYRINGE SQ SCH (08:29)
[2016-10-25] MEDS: LACTOBACILLUS ACIDOPHILUS TAB PO SCH ×3 (08:29→17:53)
[2016-10-25] MEDS: SODIUM CHLORIDE 1 GRAM TAB PO SCH ×2 (08:29→22:31)
[2016-10-25] MEDS: FOLIC ACID 1 MG TAB PO SCH (08:29)
[2016-10-25] MEDS: metFORMIN HCL 500 MG TAB PO SCH ×2 (08:29→17:54)
[2016-10-25] MEDS: SODIUM CHLORIDE 0.9% FLUSH 5 ML FLUSH FLUSH SCH ×2 (08:30→21:00)
[2016-10-25] MEDS: FLUDROCORTISONE ACETATE 0.1 MG TAB PO SCH (08:30)
[2016-10-25] MEDS: FERROUS FUMARATE 325 MG TAB (106 MG ELEMENTAL IRON) PO SCH (09:00)
--- NOTE | 2016-10-25 13:46 | HHI.PR ---
Subjective Remarks Follow-up adrenal insufficiency and orthostatic hypotension. Remains orthostatic complained of dizziness. No more diarrhea. Discussed with RN Objective Vitals Vital Signs Date Time Temp Pulse Resp B/P Pulse Ox O2 Delivery O2 Flow Rate FiO2 10/25/16 07:47 96.5 67 20 134/92 95 10/25/16 04:00 97.1 81 18 161/84 96 10/25/16 00:00 98.0 84 17 176/103 95 84/55 10/24/16 20:00 98.0 78 18 103/68 97 10/24/16 17:00 97.5 94 18 140/76 92 I/O 10/24/16 10/24/16 10/24/16 10/25/16 10/25/16 10/25/16 07:00 15:00 23:00 07:00 15:00 23:00 Intake Total 600 ml Output Total 350 ml 1000 ml Balance -350 ml -400 ml Intake Oral 600 ml Output Urine Total 350 ml 1000 ml # Voids 4 Result Diagram: 10/22/1663110/22/16 0632 Objective Remarks GENERAL: Alert, NAD. SKIN: Warm and dry. HEAD: Normocephalic. EYES: No scleral icterus. No injection or drainage. NECK: Supple, trachea midline. No JVD or lymphadenopathy. CARDIOVASCULAR: Regular rate and rhythm without murmurs, gallops, or rubs. RESPIRATORY: Breath sounds equal bilaterally. No accessory muscle use. GASTROINTESTINAL: Abdomen soft, non-tender, nondistended. MUSCULOSKELETAL: No cyanosis but with trace leg edema. BACK: Nontender without obvious deformity. No CVA tenderness. Nonfocal Procedures Echo 10/08/2016. The cavity size was normal. Wall thickness was normal. Systolic function was normal. The estimated ejection fraction was 55%. Wall motion was normal; there were no regional wall motion abnormalities. A/P Problem List: (1) Orthostatic hypotension ICD Code: I95.1 Status: Acute (2) Syncope ICD Code: R55 Status: Resolved (3) ALFONSO (acute kidney injury) ICD Code: N17.9 Status: Resolved (4) Schizophrenia ICD Code: F20.9 Status: Chronic (5) UTI (urinary tract infection) ICD Code: N39.0 Status: Resolved (6) Prediabetes ICD Code: R73.03 Status: Acute (7) Microcytic anemia ICD Code: D50.9 Status: Acute Assessment and Plan Ms. Packer is a 61-year-old female with a PMH of Schizophrenia was brought to the ER by [facility] with whom the patient lives secondary to multiple falls. - Syncope: likely vasovagal secondary to dehydration/orthostatic hypotension. CT Head w/ no acute findings. - Persistent Orthostatic Hypotension - Positive orthostatic vitals signs on admission, secondary to dehydration. BP improved with hydration. - However, orthostatics remains positive but slowly improving since starting steroids. Now with episodic hypertension associated with headache usually in the morning but by noon time BP drops and patient complains of transient dizziness. We'll give IV fluids for another 1 L and continue Florinef and ProAmatine for now - Echo essentially normal with EF 55%. - EKG showed NSR with 1st degree AV block which is typically a benign finding. - Continue salt tablets. - Adrenal insufficiency. Cortisol 12 despite hypotension will continue IV hydrocortisone status post decadron. Status post neurology evaluation. Consider cardiology consult -Acute kidney injury: Creatinine 1.45 improved to normal range with hydration. -diarrhea. Negative c difff. Improved. Lomotil as needed and lactinex - UTI - received Cipro. Urine cx mixed normal corbin. - Schizophrenia: Per report, pt recently d/c'd from [place] after 1yr hospitalization for Schizophrenia 5 days ago, currently under the care of local [facility]. Not on antipsychotic medications per review of home meds. - Diabetes mellitus - Continue Metformin 500mg BID and Sliding scale insulin. Full code. Lovenox Qday. Discharge : Refer to rehabilitation. Discussed with CM. Discharge Planning Discharge planning underway. Case management following Problem Qualifiers (1) Syncope: Qualified Code: R55 - Syncope, unspecified syncope type (2) Schizophrenia: Qualified Code: F20.9 - Schizophrenia, unspecified type Jamie Fleming MD Oct 25, 2016 13:46
[2016-10-25] MEDS: 1/2 NS + KCL 20 MEQ INJ 1,000 ML IV SCH (14:00)
[2016-10-26] VITALS (7 sets, daily range): BP systolic 85–164; BP diastolic 49–98; PULSE 68–84; RESP 17–20; TEMP 97–98; O2SAT 96–99
[2016-10-26] MEDS: PYRIDOSTIGMINE BROMIDE 60 MG TAB PO SCH ×3 (04:38→22:20)
[2016-10-26] MEDS: HYDROCORTISONE SOD SUCCINATE 100 MG VIAL IV PUSH SCH ×3 (04:38→22:20)
[2016-10-26] MEDS: 1/2 NS + KCL 20 MEQ INJ 1,000 ML IV SCH ×3 (04:39→22:24)
[2016-10-26] MEDS: MIDODRINE 5 MG TAB PO SCH ×3 (04:41→17:56)
[2016-10-26] MEDS: INSULIN ASPART SUPPLEMENTAL SCALE SQ SCH ×4 (04:49→22:19)
[2016-10-26] MEDS: FERROUS FUMARATE 325 MG TAB (106 MG ELEMENTAL IRON) PO SCH (09:00)
--- NOTE | 2016-10-26 09:32 | HHI.PR ---
Subjective Remarks Follow-up orthostatic hypotension. She remains orthostatic denies dizziness today. Discussed with RN Objective Vitals Vital Signs Date Time Temp Pulse Resp B/P Pulse Ox O2 Delivery O2 Flow Rate FiO2 10/26/16 07:59 97.1 77 20 164/98 97 10/26/16 04:00 97.0 70 17 155/92 96 10/26/16 00:00 97.0 84 17 149/92 96 10/25/16 20:00 97.6 85 18 152/93 96 10/25/16 15:50 96.6 82 20 123/82 96 10/25/16 11:50 96.6 71 20 65/40 96 10/25/16 11:49 98.1 71 20 111/60 96 I/O 10/25/16 10/25/16 10/25/16 10/26/16 10/26/16 10/26/16 06:59 14:59 22:59 06:59 14:59 22:59 Intake Total 582 ml 240 ml Output Total 700 ml 2050 ml Balance -118 ml -1810 ml Intake Oral 582 ml 240 ml IV Total 0 ml Output Urine Total 700 ml 2050 ml # Voids 4 1 2 # Bowel Movements 1 Result Diagram: 10/22/16 0632 10/22/16 0632 Objective Remarks GENERAL: Alert, NAD. SKIN: Warm and dry. HEAD: Normocephalic. EYES: No scleral icterus. No injection or drainage. NECK: Supple, trachea midline. No JVD or lymphadenopathy. CARDIOVASCULAR: Regular rate and rhythm without murmurs, gallops, or rubs. RESPIRATORY: Breath sounds equal bilaterally. No accessory muscle use. GASTROINTESTINAL: Abdomen soft, non-tender, nondistended. MUSCULOSKELETAL: No cyanosis but with trace leg edema. Good peripheral pulses BACK: Nontender without obvious deformity. No CVA tenderness. Nonfocal Procedures Echo 10/08/2016. The cavity size was normal. Wall thickness was normal. Systolic function was normal. The estimated ejection fraction was 55%. Wall motion was normal; there were no regional wall motion abnormalities. A/P Problem List: (1) Orthostatic hypotension ICD Code: I95.1 Status: Acute (2) Syncope ICD Code: R55 Status: Resolved (3) ALFONSO (acute kidney injury) ICD Code: N17.9 Status: Resolved (4) Schizophrenia ICD Code: F20.9 Status: Chronic (5) UTI (urinary tract infection) ICD Code: N39.0 Status: Resolved (6) Prediabetes ICD Code: R73.03 Status: Acute (7) Microcytic anemia ICD Code: D50.9 Status: Acute Assessment and Plan Ms. Packer is a 61-year-old female with a PMH of Schizophrenia was brought to the ER by [facility] with whom the patient lives secondary to multiple falls. - Syncope: likely vasovagal secondary to dehydration/orthostatic hypotension. CT Head w/ no acute findings. - Persistent Orthostatic Hypotension - Positive orthostatic vitals signs on admission, secondary to dehydration. BP improved with hydration. - However, orthostatics remains positive but slowly improving since starting steroids. Now with episodic hypertension associated with headache usually in the morning but by noon time BP drops and patient complains of transient dizziness. We'll continue IV fluids Florinef and increase ProAmatine. - Echo essentially normal with EF 55%. - EKG showed NSR with 1st degree AV block which is typically a benign finding. - Continue salt tablets. - Adrenal insufficiency. Cortisol 12 despite hypotension will continue IV hydrocortisone status post decadron. Status post neurology evaluation. Consider cardiology consult -Acute kidney injury: Creatinine 1.45 improved to normal range with hydration. -diarrhea. Negative c difff. Improved. Lomotil as needed and lactinex - UTI - received Cipro. Urine cx mixed normal corbin. - Schizophrenia: Per report, pt recently d/c'd from [place] after 1yr hospitalization for Schizophrenia 5 days ago, currently under the care of local [facility]. Not on antipsychotic medications per review of home meds. - Diabetes mellitus - Continue Metformin 500mg BID and Sliding scale insulin. Full code. Lovenox Qday. Discharge : Refer to rehabilitation. Discussed with CM. Discharge Planning Discharge planning underway. Case management following Problem Qualifiers (1) Syncope: Qualified Code: R55 - Syncope, unspecified syncope type (2) Schizophrenia: Qualified Code: F20.9 - Schizophrenia, unspecified type Jamie Fleming MD Oct 26, 2016 09:32
[2016-10-26] MEDS: SODIUM CHLORIDE 0.9% FLUSH 5 ML FLUSH FLUSH SCH ×2 (10:08→22:19)
[2016-10-26] MEDS: LACTOBACILLUS ACIDOPHILUS TAB PO SCH ×3 (10:08→17:56)
[2016-10-26] MEDS: FLUDROCORTISONE ACETATE 0.1 MG TAB PO SCH (10:09)
[2016-10-26] MEDS: ENOXAPARIN SODIUM 40 MG/0.4 ML SYRINGE SQ SCH (10:09)
[2016-10-26] MEDS: metFORMIN HCL 500 MG TAB PO SCH ×2 (10:09→17:56)
[2016-10-26] MEDS: SODIUM CHLORIDE 1 GRAM TAB PO SCH ×2 (10:09→22:22)
[2016-10-26] MEDS: FOLIC ACID 1 MG TAB PO SCH (10:09)
[2016-10-26] MEDS: MULTIVITAMINS/MINERALS THERAPEUTIC TAB PO SCH (10:09)
[2016-10-26] MEDS ORDERED: GETGO ROLLING W1 MI1 (13:50)
[2016-10-27] VITALS (7 sets, daily range): BP systolic 52–166; BP diastolic 33–101; PULSE 62–83; RESP 16–22; TEMP 96–98.8; O2SAT 96–98
[2016-10-27] MEDS: PYRIDOSTIGMINE BROMIDE 60 MG TAB PO SCH ×3 (06:31→20:56)
[2016-10-27] MEDS: HYDROCORTISONE SOD SUCCINATE 100 MG VIAL IV PUSH SCH ×3 (06:31→20:56)
[2016-10-27] MEDS: MIDODRINE 5 MG TAB PO SCH ×3 (06:31→18:37)
[2016-10-27] MEDS: INSULIN ASPART SUPPLEMENTAL SCALE SQ SCH ×4 (06:35→21:02)
[2016-10-27] MEDS: FERROUS FUMARATE 325 MG TAB (106 MG ELEMENTAL IRON) PO SCH (09:00)
[2016-10-27] MEDS: FLUDROCORTISONE ACETATE 0.1 MG TAB PO SCH (09:19)
[2016-10-27] MEDS: ENOXAPARIN SODIUM 40 MG/0.4 ML SYRINGE SQ SCH (09:19)
[2016-10-27] MEDS: LACTOBACILLUS ACIDOPHILUS TAB PO SCH ×3 (09:19→18:37)
[2016-10-27] MEDS: metFORMIN HCL 500 MG TAB PO SCH ×2 (09:19→18:37)
[2016-10-27] MEDS: MULTIVITAMINS/MINERALS THERAPEUTIC TAB PO SCH (09:19)
[2016-10-27] MEDS: SODIUM CHLORIDE 1 GRAM TAB PO SCH ×2 (09:19→20:56)
[2016-10-27] MEDS: FOLIC ACID 1 MG TAB PO SCH (09:19)
[2016-10-27] MEDS: SODIUM CHLORIDE 0.9% FLUSH 5 ML FLUSH FLUSH SCH ×2 (09:19→20:58)
--- NOTE | 2016-10-27 12:01 | HHI.PR ---
Subjective Remarks Follow-up orthostatic hypotension. Complains of nausea coinciding with hypertension. She denies vomiting, headache, dizziness, numbness, focal weakness, UTI symptoms, constipation and diarrhea. Patient received IV Zofran. Discussed with RN. Objective Vitals Vital Signs Date Time Temp Pulse Resp B/P Pulse Ox O2 Delivery O2 Flow Rate FiO2 10/27/16 08:00 97.8 62 22 166/101 97 10/27/16 04:00 97.6 71 17 139/80 98 10/27/16 00:00 97.0 76 18 150/91 96 10/26/16 20:00 98.0 78 17 145/89 98 10/26/16 15:50 97.4 74 20 147/70 96 I/O 10/26/16 10/26/16 10/26/16 10/27/16 10/27/16 10/27/16 07:00 15:00 23:00 07:00 15:00 23:00 Intake Total 240 ml 582 ml 448 ml 240 ml Output Total 2050 ml 700 ml 500 ml Balance -1810 ml 582 ml -252 ml -260 ml Intake Oral 240 ml 582 ml 240 ml IV Total 448 ml Output Urine Total 2050 ml 700 ml 500 ml # Voids 2 3 1 2 # Bowel Movements 0 Objective Remarks GENERAL: Alert, NAD. SKIN: Warm and dry. HEAD: Normocephalic. EYES: No scleral icterus. No injection or drainage. NECK: Supple, trachea midline. No JVD or lymphadenopathy. CARDIOVASCULAR: Regular rate and rhythm without murmurs, gallops, or rubs. RESPIRATORY: Breath sounds equal bilaterally. No accessory muscle use. GASTROINTESTINAL: Abdomen soft, non-tender, nondistended. MUSCULOSKELETAL: No cyanosis but with trace leg edema. Good peripheral pulses BACK: Nontender without obvious deformity. No CVA tenderness. Procedures Echo 10/08/2016. The cavity size was normal. Wall thickness was normal. Systolic function was normal. The estimated ejection fraction was 55%. Wall motion was normal; there were no regional wall motion abnormalities. A/P Problem List: (1) Orthostatic hypotension ICD Code: I95.1 Status: Acute (2) Syncope ICD Code: R55 Status: Resolved (3) ALFONSO (acute kidney injury) ICD Code: N17.9 Status: Resolved (4) Schizophrenia ICD Code: F20.9 Status: Chronic (5) UTI (urinary tract infection) ICD Code: N39.0 Status: Resolved (6) Prediabetes ICD Code: R73.03 Status: Acute (7) Microcytic anemia ICD Code: D50.9 Status: Acute Assessment and Plan Ms. Packer is a 61-year-old female with a PMH of Schizophrenia was brought to the ER by [facility] with whom the patient lives secondary to multiple falls. - Syncope: likely vasovagal secondary to dehydration/orthostatic hypotension. CT Head w/ no acute findings. - Persistent Orthostatic Hypotension - Positive orthostatic vitals signs on admission, secondary to dehydration. BP improved with hydration. - However, orthostatics remains positive but slowly improving since starting steroids. Now with episodic hypertension associated with headache usually in the morning but by noon time BP drops and patient complains of transient dizziness. We'll continue IV fluids Florinef and ProAmatine. Status post neurology evaluation. Consult cardiology secondary to persistent hypotension - Echo essentially normal with EF 55%. - EKG showed NSR with 1st degree AV block which is typically a benign finding. - Continue salt tablets. - Relative Adrenal insufficiency. Cortisol 12 despite hypotension will continue IV hydrocortisone status post decadron. -Acute kidney injury: Creatinine 1.45 improved to normal range with hydration. -diarrhea. Negative c difff. Improved. Lomotil as needed and lactinex - UTI - received Cipro. Urine cx mixed normal corbin. - Schizophrenia: Per report, pt recently d/c'd from [place] after 1yr hospitalization for Schizophrenia 5 days ago, currently under the care of local [facility]. Not on antipsychotic medications per review of home meds. - Diabetes mellitus - Continue Metformin 500mg BID and Sliding scale insulin. Full code. Lovenox Qday. Discharge : Refer to rehabilitation. Discussed with CM. Discharge Planning Discharge planning underway. Case management following Problem Qualifiers (1) Syncope: Qualified Code: R55 - Syncope, unspecified syncope type (2) Schizophrenia: Qualified Code: F20.9 - Schizophrenia, unspecified type Jamie Fleming MD Oct 27, 2016 12:01
[2016-10-27] MEDS: ONDANSETRON HCL 4 MG/2 ML VIAL IVP PRN (12:16)
[2016-10-27] MEDS: 1/2 NS + KCL 20 MEQ INJ 1,000 ML IV SCH (12:17)
--- NOTE | 2016-10-27 15:23 | MB ---
cc: KIRK JONES HANSCY M.D. DATE OF CONSULTATION: 10/27/2016 REASON FOR CONSULTATION: Persistent orthostatic hypotension. HISTORY OF PRESENT ILLNESS: Ras Packer is a pleasant 61-year-old female who was originally admitted to [facility] on October 07, 2016 with syncope and collapse. Apparently the patient was brought to the emergency room by a home healthcare psychologist research assistant because she has had multiple falls. She was previously discharged from [place] after about a year of hospitalization for schizophrenia to the care of a local healthcare psychologist research assistant surrogate. Upon arrival, she was found to be orthostatic. Since being here, she has had multiple blood pressures which show a relative drop in her blood pressure upon sitting or standing. PAST MEDICAL HISTORY: Schizophrenia. PAST SURGICAL HISTORY: Tubal ligation. ALLERGIES: Penicillin. MEDICATIONS: Home medications: 1. Iron 324 milligrams daily. 2. Folic acid 5 milligrams daily. 3. Ascorbic acid 500 milligrams daily. FAMILY HISTORY: No significant coronary artery disease. SOCIAL HISTORY: Denies alcohol, tobacco or drugs. REVIEW OF SYSTEMS Fourteen systems were reviewed including osteopathic with pertinent positives and negatives as above; otherwise negative. PHYSICAL EXAMINATION: VITAL SIGNS: Temperature 97.4, heart rate 63, blood pressure 108/69 supine and 52/33 sitting, respirations 20, pulse ox 97%. GENERAL: In general, the patient appears in no acute distress, slightly juvenile. HEAD, EYES, EARS, NOSE, THROAT: Extraocular muscles intact. Mucous membranes moist. NECK: The neck is supple. No JVD at 45 degrees. No carotid bruits heard bilaterally. Carotid upstroke is brisk in nature. HEART: Regular rate and rhythm. Positive first and second heart sounds with no murmurs, gallops or rubs. LUNGS: Clear to auscultation bilaterally. No wheezes, rales or rhonchi. ABDOMEN: The abdomen is soft, nontender and nondistended. No organomegaly noted. EXTREMITIES: No clubbing, cyanosis or edema. NEUROLOGIC: No focal deficits. OSTEOPATHIC: Osteopathically, no kyphoscoliosis, lordosis or paraspinal tender points. LABORATORY FINDINGS: Hemoglobin 10.3, hematocrit 31.4, platelets 244,000. Potassium 3.6, BUN 12, creatinine 241. IMPRESSION: 1. Persistent orthostatic hypotension. 2. Syncope. 3. Previous acute kidney injury. 4. Schizophrenia. 5. Diabetes mellitus. 6. Microcytic anemia. 7. Ejection fraction 55% by echocardiogram (October 08, 2016). RECOMMENDATIONS: 1. On looking back, it appears that on presentation blood pressure was low and this was thought to be due to dehydration. After fluids, blood pressure has increased although she still has episodes of a significant drop in her blood pressure upon sitting or standing. Since being here, she has been started on Mestinon, midodrine and steroid therapy. 2. Workup has included an echo, carotid Doppler, and random cortisol, all which have not but lead to a reason for her orthostatic hypotension. 3. It does not appear that she has POTS. She does not appear to have elevated heart rate was changes in her position. 4. Would continue with fluids as possible. 5. Continue with salt tablets. 6. I will consult Dr. Kirkland for consideration of tilt table testing as well. Thank you for allowing me to see Ras Packer. If there are any questions, please do not hesitate to call. Kirk Jones DO P/JCC /2:49 PM /3:08 PM
[2016-10-28] MEDS: 1/2 NS + KCL 20 MEQ INJ 1,000 ML IV SCH ×2 (01:06→13:44)
[2016-10-28 04:00] VITALS: BP 116/85; PULSE 69; RESP 15; TEMP 96.6; O2SAT 97
[2016-10-28] MEDS: PYRIDOSTIGMINE BROMIDE 60 MG TAB PO SCH ×3 (06:41→22:50)
[2016-10-28] MEDS: HYDROCORTISONE SOD SUCCINATE 100 MG VIAL IV PUSH SCH ×3 (06:41→22:50)
[2016-10-28] MEDS: MIDODRINE 5 MG TAB PO SCH ×3 (06:41→18:54)
[2016-10-28] MEDS: INSULIN ASPART SUPPLEMENTAL SCALE SQ SCH ×5 (06:44→21:00)
[2016-10-28 08:00] VITALS: BP_SYST 108; BP_SYST 148; BP_DIAS 103; BP_DIAS 85; PULSE 64; RESP 20; TEMP 97.2; O2SAT 97
[2016-10-28] MEDS: SODIUM CHLORIDE 0.9% FLUSH 5 ML FLUSH FLUSH SCH ×2 (09:00→21:00)
[2016-10-28] MEDS: SODIUM CHLORIDE 1 GRAM TAB PO SCH ×2 (09:14→22:51)
[2016-10-28] MEDS: LACTOBACILLUS ACIDOPHILUS TAB PO SCH ×3 (09:14→18:51)
[2016-10-28] MEDS: FLUDROCORTISONE ACETATE 0.1 MG TAB PO SCH (09:14)
[2016-10-28] MEDS: metFORMIN HCL 500 MG TAB PO SCH ×2 (09:14→18:51)
[2016-10-28] MEDS: ENOXAPARIN SODIUM 40 MG/0.4 ML SYRINGE SQ SCH (09:15)
[2016-10-28] MEDS: MULTIVITAMINS/MINERALS THERAPEUTIC TAB PO SCH (09:15)
[2016-10-28] MEDS: FERROUS FUMARATE 325 MG TAB (106 MG ELEMENTAL IRON) PO SCH (09:15)
[2016-10-28] MEDS: FOLIC ACID 1 MG TAB PO SCH (09:15)
--- NOTE | 2016-10-28 11:38 | HHI.PR ---
Subjective Remarks Follow-up orthostatic hypotension. Remains orthostatic denies dizziness today. Discussed with cardiology and RN Objective Vitals Vital Signs Date Time Temp Pulse Resp B/P Pulse Ox O2 Delivery O2 Flow Rate FiO2 10/28/16 08:00 108/85 10/28/16 08:00 97.2 64 20 148/103 97 10/28/16 04:00 96.6 69 15 116/85 97 10/27/16 23:00 98.8 77 17 149/97 98 10/27/16 20:00 96.7 71 16 129/81 98 10/27/16 16:00 96.0 83 22 137/97 96 10/27/16 12:00 97.4 63 20 108/69 97 52/33 I/O 10/27/16 10/27/16 10/27/16 10/28/16 10/28/16 10/28/16 07:00 15:00 23:00 07:00 15:00 23:00 Intake Total 240 ml 2188 ml 1204 ml Output Total 500 ml 1500 ml 400 ml Balance -260 ml 688 ml -400 ml 1204 ml Intake Oral 240 ml 480 ml IV Total 1708 ml 1204 ml Output Urine Total 500 ml 1500 ml 400 ml # Voids 2 1 3 # Bowel Movements 1 Objective Remarks GENERAL: Alert, NAD. SKIN: Warm and dry. HEAD: Normocephalic. EYES: No scleral icterus. No injection or drainage. NECK: Supple, trachea midline. No JVD or lymphadenopathy. CARDIOVASCULAR: Regular rate and rhythm without murmurs, gallops, or rubs. RESPIRATORY: Breath sounds equal bilaterally. No accessory muscle use. GASTROINTESTINAL: Abdomen soft, non-tender, nondistended. MUSCULOSKELETAL: No cyanosis but with trace leg edema. Good peripheral pulses BACK: Nontender without obvious deformity. No CVA tenderness. Procedures Echo 10/08/2016. The cavity size was normal. Wall thickness was normal. Systolic function was normal. The estimated ejection fraction was 55%. Wall motion was normal; there were no regional wall motion abnormalities. A/P Problem List: (1) Orthostatic hypotension ICD Code: I95.1 Status: Acute (2) Syncope ICD Code: R55 Status: Resolved (3) ALFONSO (acute kidney injury) ICD Code: N17.9 Status: Resolved (4) Schizophrenia ICD Code: F20.9 Status: Chronic (5) UTI (urinary tract infection) ICD Code: N39.0 Status: Resolved (6) Prediabetes ICD Code: R73.03 Status: Acute (7) Microcytic anemia ICD Code: D50.9 Status: Acute Assessment and Plan Ms. Packer is a 61-year-old female with a PMH of Schizophrenia was brought to the ER by [facility] with whom the patient lives secondary to multiple falls. - Syncope: likely vasovagal secondary to dehydration/orthostatic hypotension. CT Head w/ no acute findings. - Persistent Orthostatic Hypotension - Positive orthostatic vitals signs on admission, secondary to dehydration. BP improved with hydration. - However, orthostatics remains positive but slowly improving since starting steroids. Now with episodic hypertension associated with headache usually in the morning but by noon time BP drops and patient complains of transient dizziness. We'll continue IV fluids Florinef and ProAmatine. Status post neurology evaluation. Consulted cardiology secondary to persistent hypotension. Trial caffeine. - Echo essentially normal with EF 55%. - EKG showed NSR with 1st degree AV block which is typically a benign finding. - Continue salt tablets. - Relative Adrenal insufficiency. Cortisol 12 despite hypotension will continue IV hydrocortisone status post decadron. -Acute kidney injury: Creatinine 1.45 improved to normal range with hydration. -diarrhea. Negative c difff. Improved. Lomotil as needed and lactinex - UTI - received Cipro. Urine cx mixed normal corbin. - Schizophrenia: Per report, pt recently d/c'd from [place] after 1yr hospitalization for Schizophrenia 5 days ago, currently under the care of local [facility]. Not on antipsychotic medications per review of home meds. - Diabetes mellitus - Continue Metformin 500mg BID and Sliding scale insulin. Full code. Lovenox Qday. Discharge : Refer to rehabilitation. Discussed with CM. Discharge Planning Discharge planning underway. Case management following Problem Qualifiers (1) Syncope: Qualified Code: R55 - Syncope, unspecified syncope type (2) Schizophrenia: Qualified Code: F20.9 - Schizophrenia, unspecified type Jamie Fleming MD Oct 28, 2016 11:37
[2016-10-28 12:00] VITALS: BP 92/65; PULSE 70; RESP 18; TEMP 96.2; O2SAT 97
[2016-10-28 16:00] VITALS: BP_SYST 130; BP_DIAS 75; BP_DIAS 89; PULSE 117; PULSE 72; RESP 18; RESP 20; TEMP 96.4; TEMP 97.2; O2SAT 97
[2016-10-28 20:00] VITALS: BP 133/93; PULSE 77; RESP 16; TEMP 98.8; O2SAT 98
[2016-10-28] MEDS: ONDANSETRON HCL 4 MG/2 ML VIAL IVP PRN (23:03)
[2016-10-29] VITALS: BP 137/85; PULSE 70; RESP 16; TEMP 98.4; O2SAT 96
[2016-10-29 04:00] VITALS: BP_SYST 109; BP_SYST 129; BP_DIAS 66; PULSE 70; RESP 16; TEMP 98.5; O2SAT 95
[2016-10-29] MEDS: INSULIN ASPART SUPPLEMENTAL SCALE SQ SCH ×4 (05:59→21:00)
[2016-10-29] MEDS: MIDODRINE 5 MG TAB PO SCH ×3 (06:03→17:15)
[2016-10-29] MEDS: PYRIDOSTIGMINE BROMIDE 60 MG TAB PO SCH ×3 (06:03→22:55)
[2016-10-29] MEDS: HYDROCORTISONE SOD SUCCINATE 100 MG VIAL IV PUSH SCH ×3 (06:03→22:56)
[2016-10-29] MEDS: 1/2 NS + KCL 20 MEQ INJ 1,000 ML IV SCH ×2 (06:04→14:55)
[2016-10-29 07:50] VITALS: BP 115/72; PULSE 63; RESP 20; TEMP 98; O2SAT 97
[2016-10-29] MEDS: ENOXAPARIN SODIUM 40 MG/0.4 ML SYRINGE SQ SCH (08:32)
[2016-10-29] MEDS: FOLIC ACID 1 MG TAB PO SCH (08:32)
[2016-10-29] MEDS: SODIUM CHLORIDE 0.9% FLUSH 5 ML FLUSH FLUSH SCH ×2 (08:32→21:00)
[2016-10-29] MEDS: FERROUS FUMARATE 325 MG TAB (106 MG ELEMENTAL IRON) PO SCH (08:32)
[2016-10-29] MEDS: metFORMIN HCL 500 MG TAB PO SCH ×2 (08:32→17:14)
[2016-10-29] MEDS: FLUDROCORTISONE ACETATE 0.1 MG TAB PO SCH (08:33)
[2016-10-29] MEDS: LACTOBACILLUS ACIDOPHILUS TAB PO SCH ×3 (08:33→17:14)
[2016-10-29] MEDS: SODIUM CHLORIDE 1 GRAM TAB PO SCH ×2 (08:33→22:55)
[2016-10-29] MEDS: MULTIVITAMINS/MINERALS THERAPEUTIC TAB PO SCH (08:33)
--- NOTE | 2016-10-29 09:20 | HHI.PR ---
Subjective Remarks Follow-up orthostatic hypotension. Denies dizziness but had 1 loose stool yesterday. Discussed with RN and cardiology Objective Vitals Vital Signs Date Time Temp Pulse Resp B/P Pulse Ox O2 Delivery O2 Flow Rate FiO2 10/29/16 07:50 98.0 63 20 115/72 97 10/29/16 04:00 98.5 70 16 129/66 95 109/66 10/29/16 00:00 98.4 70 16 137/85 96 10/28/16 20:00 98.8 77 16 133/93 98 10/28/16 16:00 97.2 72 18 130/89 97 10/28/16 12:00 96.2 70 18 92/65 97 I/O 10/28/16 10/28/16 10/28/16 10/29/16 10/29/16 10/29/16 06:59 14:59 22:59 06:59 14:59 22:59 Intake Total 1804 ml 480 ml 1008 ml Output Total 1100 ml 450 ml Balance 704 ml 30 ml 1008 ml Intake Oral 600 ml 480 ml IV Total 1204 ml 1008 ml Output Urine Total 1100 ml 450 ml # Voids 3 1 4 1 # Bowel Movements 1 Objective Remarks GENERAL: Alert, NAD. SKIN: Warm and dry. HEAD: Normocephalic. EYES: No scleral icterus. No injection or drainage. NECK: Supple, trachea midline. No JVD or lymphadenopathy. CARDIOVASCULAR: Regular rate and rhythm without murmurs, gallops, or rubs. RESPIRATORY: Breath sounds equal bilaterally. No accessory muscle use. GASTROINTESTINAL: Abdomen soft, non-tender, nondistended. MUSCULOSKELETAL: No cyanosis but with trace leg edema. Good peripheral pulses. Nonfocal BACK: Nontender without obvious deformity. No CVA tenderness. Procedures Echo 10/08/2016. The cavity size was normal. Wall thickness was normal. Systolic function was normal. The estimated ejection fraction was 55%. Wall motion was normal; there were no regional wall motion abnormalities. A/P Problem List: (1) Orthostatic hypotension ICD Code: I95.1 Status: Acute (2) Syncope ICD Code: R55 Status: Resolved (3) ALFONSO (acute kidney injury) ICD Code: N17.9 Status: Resolved (4) Schizophrenia ICD Code: F20.9 Status: Chronic (5) UTI (urinary tract infection) ICD Code: N39.0 Status: Resolved (6) Prediabetes ICD Code: R73.03 Status: Acute (7) Microcytic anemia ICD Code: D50.9 Status: Acute Assessment and Plan Ms. Packer is a 61-year-old female with a PMH of Schizophrenia was brought to the ER by [facility] with whom the patient lives secondary to multiple falls. - Syncope: likely vasovagal secondary to dehydration/orthostatic hypotension. CT Head w/ no acute findings. - Persistent Orthostatic Hypotension - Positive orthostatic vitals signs on admission, secondary to dehydration. BP improved with hydration. - However, orthostatics remains positive but slowly improving since starting steroids. Now with episodic hypertension associated with headache usually in the morning but by noon time BP drops and patient complains of transient dizziness. We'll continue IV fluids Florinef and ProAmatine. Status post neurology evaluation. Consulted cardiology secondary to persistent orthostatic hypotension. Trial caffeine. Today, orthostatic vital signs improved - Echo essentially normal with EF 55%. - EKG showed NSR with 1st degree AV block which is typically a benign finding. - Continue salt tablets. - Relative Adrenal insufficiency. Cortisol 12 despite hypotension will continue IV hydrocortisone status post decadron. -Acute kidney injury: Creatinine 1.45 improved to normal range with hydration. -diarrhea. Negative c difff. Improved. Lomotil as needed and lactinex - UTI - received Cipro. Urine cx mixed normal corbin. - Schizophrenia: Per report, pt recently d/c'd from [place] after 1yr hospitalization for Schizophrenia 5 days ago, currently under the care of local [facility]. Not on antipsychotic medications per review of home meds. - Diabetes mellitus - Continue Metformin 500mg BID and Sliding scale insulin. Full code. Lovenox Qday. Discharge : Refer to rehabilitation. Discussed with CM. Discharge Planning Discharge planning underway. Case management following Problem Qualifiers (1) Syncope: Qualified Code: R55 - Syncope, unspecified syncope type (2) Schizophrenia: Qualified Code: F20.9 - Schizophrenia, unspecified type Jamie Fleming MD Oct 29, 2016 09:20
[2016-10-29 14:30] VITALS: BP_SYST 155; BP_SYST 62; BP_DIAS 48; BP_DIAS 97; PULSE 85; PULSE 87; RESP 20; TEMP 97.8; O2SAT 94
[2016-10-29 15:50] VITALS: BP 105/75; PULSE 86; RESP 20; TEMP 98.6; O2SAT 86
[2016-10-29 20:00] VITALS: BP_SYST 126; BP_SYST 61; BP_DIAS 37; BP_DIAS 69; PULSE 79; RESP 18; TEMP 97.1; O2SAT 98
[2016-10-30] VITALS (7 sets, daily range): BP systolic 107–205; BP diastolic 69–115; PULSE 64–92; RESP 18–19; TEMP 96.3–97.8; O2SAT 96–98
[2016-10-30] MEDS: 1/2 NS + KCL 20 MEQ INJ 1,000 ML IV SCH ×4 (01:15→21:08)
[2016-10-30] MEDS: HYDROCORTISONE SOD SUCCINATE 100 MG VIAL IV PUSH SCH ×3 (05:53→21:07)
[2016-10-30] MEDS: MIDODRINE 5 MG TAB PO SCH ×3 (05:55→17:39)
[2016-10-30] MEDS: PYRIDOSTIGMINE BROMIDE 60 MG TAB PO SCH ×3 (05:55→21:08)
[2016-10-30] MEDS: INSULIN ASPART SUPPLEMENTAL SCALE SQ SCH ×4 (07:00→21:13)
[2016-10-30] MEDS: SODIUM CHLORIDE 0.9% FLUSH 5 ML FLUSH FLUSH SCH ×2 (08:51→21:00)
[2016-10-30] MEDS: FERROUS FUMARATE 325 MG TAB (106 MG ELEMENTAL IRON) PO SCH (08:51)
[2016-10-30] MEDS: metFORMIN HCL 500 MG TAB PO SCH ×2 (08:51→17:39)
[2016-10-30] MEDS: LACTOBACILLUS ACIDOPHILUS TAB PO SCH ×3 (08:51→17:06)
[2016-10-30] MEDS: SODIUM CHLORIDE 1 GRAM TAB PO SCH ×2 (08:52→21:07)
[2016-10-30] MEDS: MULTIVITAMINS/MINERALS THERAPEUTIC TAB PO SCH (08:52)
[2016-10-30] MEDS: FOLIC ACID 1 MG TAB PO SCH (08:52)
[2016-10-30] MEDS: ENOXAPARIN SODIUM 40 MG/0.4 ML SYRINGE SQ SCH (08:52)
[2016-10-30] MEDS: FLUDROCORTISONE ACETATE 0.1 MG TAB PO SCH (08:52)
--- NOTE | 2016-10-30 11:34 | HHI.PR ---
Subjective Remarks F/U orthostatic hypotension. Remains orthostatic but denies dizziness. BP elevated this morning denies headache, nausea, visual changes chest pain and shortness of breath. Discussed with RN Objective Vitals Vital Signs Date Time Temp Pulse Resp B/P Pulse Ox O2 Delivery O2 Flow Rate FiO2 10/30/16 08:10 68 128/69 10/30/16 08:00 96.7 64 18 205/115 97 10/30/16 04:00 97.0 83 19 129/70 96 10/30/16 00:00 97.8 77 18 115/76 97 10/29/16 20:00 97.1 79 18 126/69 98 61/37 10/29/16 15:50 98.6 86 20 105/75 86 10/29/16 14:30 87 62/48 10/29/16 14:30 97.8 85 20 155/97 94 I/O 10/29/16 10/29/16 10/29/16 10/30/16 10/30/16 10/30/16 07:00 15:00 23:00 07:00 15:00 23:00 Intake Total 1008 ml 480 ml 1780 ml 374 ml Output Total 6 ml 300 ml 1300 ml Balance 1008 ml 474 ml 1480 ml -926 ml Intake Oral 480 ml 480 ml IV Total 1008 ml 1300 ml 374 ml Output Urine Total 6 ml 300 ml 1300 ml # Voids 4 1 1 # Bowel Movements 1 2 Objective Remarks GENERAL: Alert, NAD. SKIN: Warm and dry. HEAD: Normocephalic. EYES: No scleral icterus. No injection or drainage. NECK: Supple, trachea midline. No JVD or lymphadenopathy. CARDIOVASCULAR: Regular rate and rhythm without murmurs, gallops, or rubs. RESPIRATORY: Breath sounds equal bilaterally. No accessory muscle use. GASTROINTESTINAL: Abdomen soft, non-tender, nondistended. MUSCULOSKELETAL: No cyanosis but with trace leg edema. Good peripheral pulses. Nonfocal BACK: Nontender without obvious deformity. No CVA tenderness. Procedures Echo 10/08/2016. The cavity size was normal. Wall thickness was normal. Systolic function was normal. The estimated ejection fraction was 55%. Wall motion was normal; there were no regional wall motion abnormalities. A/P Problem List: (1) Orthostatic hypotension ICD Code: I95.1 Status: Acute (2) Syncope ICD Code: R55 Status: Resolved (3) ALFONSO (acute kidney injury) ICD Code: N17.9 Status: Resolved (4) Schizophrenia ICD Code: F20.9 Status: Chronic (5) UTI (urinary tract infection) ICD Code: N39.0 Status: Resolved (6) Prediabetes ICD Code: R73.03 Status: Acute (7) Microcytic anemia ICD Code: D50.9 Status: Acute Assessment and Plan Ms. Packer is a 61-year-old female with a PMH of Schizophrenia was brought to the ER by [facility] Processor with whom the patient lives secondary to multiple falls. - Syncope: likely vasovagal secondary to dehydration/orthostatic hypotension. CT Head w/ no acute findings. - Persistent Orthostatic Hypotension - Positive orthostatic vitals signs on admission, secondary to dehydration. BP improved with hydration. - However, orthostatics remains positive but slowly improving since starting steroids. Now with episodic hypertension associated with headache usually in the morning but by noon time BP drops and patient complains of transient dizziness. We'll continue IV fluids Florinef and ProAmatine. We'll increase ProAmatine. Status post neurology evaluation. Consulted cardiology secondary to persistent orthostatic hypotension. Trial caffeine. Consider octreotide - Echo essentially normal with EF 55%. - EKG showed NSR with 1st degree AV block which is typically a benign finding. - Continue salt tablets. - Relative Adrenal insufficiency. Cortisol 12 despite hypotension will continue IV hydrocortisone status post decadron. -Acute kidney injury: Creatinine 1.45 improved to normal range with hydration. -diarrhea. Negative c difff. Improved. Lomotil as needed and lactinex - UTI - received Cipro. Urine cx mixed normal corbin. - Schizophrenia: Per report, pt recently d/c'd from [place] after 1yr hospitalization for Schizophrenia, currently under the care of local Healthcare Associate. Not on antipsychotic medications per review of home meds. - Diabetes mellitus - Continue Metformin 500mg BID and Sliding scale insulin. Full code. Lovenox Qday. Discharge : Refer to rehabilitation. Discussed with CM. Discharge Planning Discharge planning underway. Case management following Problem Qualifiers (1) Syncope: Qualified Code: R55 - Syncope, unspecified syncope type (2) Schizophrenia: Qualified Code: F20.9 - Schizophrenia, unspecified type Jamie Fleming MD Oct 30, 2016 11:34
[2016-10-31] VITALS (9 sets, daily range): BP systolic 60–215; BP diastolic 37–113; PULSE 62–77; RESP 16–20; TEMP 96.2–98.6; O2SAT 96–99
[2016-10-31] MEDS: MIDODRINE 5 MG TAB PO SCH ×3 (06:24→18:09)
[2016-10-31] MEDS: HYDROCORTISONE SOD SUCCINATE 100 MG VIAL IV PUSH SCH ×3 (06:24→21:11)
[2016-10-31] MEDS: INSULIN ASPART SUPPLEMENTAL SCALE SQ SCH ×4 (06:27→21:16)
[2016-10-31] MEDS: PYRIDOSTIGMINE BROMIDE 60 MG TAB PO SCH ×3 (06:29→21:11)
[2016-10-31] MEDS: SODIUM CHLORIDE 0.9% FLUSH 5 ML FLUSH FLUSH SCH ×2 (09:00→21:00)
[2016-10-31] MEDS: MULTIVITAMINS/MINERALS THERAPEUTIC TAB PO SCH (10:31)
[2016-10-31] MEDS: SODIUM CHLORIDE 1 GRAM TAB PO SCH ×2 (10:31→21:11)
[2016-10-31] MEDS: FLUDROCORTISONE ACETATE 0.1 MG TAB PO SCH (10:32)
[2016-10-31] MEDS: FOLIC ACID 1 MG TAB PO SCH (10:32)
[2016-10-31] MEDS: metFORMIN HCL 500 MG TAB PO SCH ×2 (10:32→18:10)
[2016-10-31] MEDS: LACTOBACILLUS ACIDOPHILUS TAB PO SCH ×3 (10:32→18:10)
[2016-10-31] MEDS: ENOXAPARIN SODIUM 40 MG/0.4 ML SYRINGE SQ SCH (10:33)
[2016-10-31] MEDS: FERROUS FUMARATE 325 MG TAB (106 MG ELEMENTAL IRON) PO SCH (10:38)
--- NOTE | 2016-10-31 10:46 | HHI.PR ---
Subjective Remarks F/U orthostatic hypotension. Denies dizziness and syncope. No diarrhea. Discussed with RN Objective Vitals Vital Signs Date Time Temp Pulse Resp B/P Pulse Ox O2 Delivery O2 Flow Rate FiO2 10/31/16 10:42 109/55 10/31/16 10:41 60/37 10/31/16 07:43 96.2 66 18 215/112 96 10/31/16 04:00 96.9 62 17 125/87 97 10/31/16 00:00 96.9 77 16 147/89 99 10/30/16 20:00 97.1 76 18 158/106 98 10/30/16 16:00 97.5 92 18 107/69 96 107/72 10/30/16 12:00 96.3 77 18 123/84 96 109/79 I/O 10/30/16 10/30/16 10/30/16 10/31/16 10/31/16 10/31/16 07:00 15:00 23:00 07:00 15:00 23:00 Intake Total 374 ml 360 ml 875 ml 1296 ml 360 ml Output Total 1300 ml 400 ml 950 ml 700 ml 400 ml Balance -926 ml -40 ml -75 ml 596 ml -40 ml Intake Oral 360 ml 240 ml 360 ml IV Total 374 ml 875 ml 1056 ml Output Urine Total 1300 ml 400 ml 950 ml 700 ml 400 ml # Voids 2 1 Objective Remarks GENERAL: Alert, NAD. SKIN: Warm and dry. HEAD: Normocephalic. EYES: No scleral icterus. No injection or drainage. NECK: Supple, trachea midline. No JVD or lymphadenopathy. CARDIOVASCULAR: Regular rate and rhythm without murmurs, gallops, or rubs. RESPIRATORY: Breath sounds equal bilaterally. No accessory muscle use. GASTROINTESTINAL: Abdomen soft, non-tender, nondistended. MUSCULOSKELETAL: No cyanosis but with trace leg edema. Good peripheral pulses. BACK: Nontender without obvious deformity. No CVA tenderness. Procedures Echo 10/08/2016. The cavity size was normal. Wall thickness was normal. Systolic function was normal. The estimated ejection fraction was 55%. Wall motion was normal; there were no regional wall motion abnormalities. A/P Problem List: (1) Orthostatic hypotension ICD Code: I95.1 Status: Acute (2) Syncope ICD Code: R55 Status: Resolved (3) ALFONSO (acute kidney injury) ICD Code: N17.9 Status: Resolved (4) Schizophrenia ICD Code: F20.9 Status: Chronic (5) UTI (urinary tract infection) ICD Code: N39.0 Status: Resolved (6) Prediabetes ICD Code: R73.03 Status: Acute (7) Microcytic anemia ICD Code: D50.9 Status: Acute Assessment and Plan Ms. Packer is a 61-year-old female with a PMH of Schizophrenia was brought to the ER by [facility] Emotional Disabilities Teacher with whom the patient lives secondary to multiple falls. - Syncope: likely vasovagal secondary to dehydration/orthostatic hypotension. CT Head w/ no acute findings. - Persistent Orthostatic Hypotension - Positive orthostatic vitals signs on admission, secondary to dehydration. BP improved with hydration. - However, orthostatics remains positive but slowly improving since starting steroids. Now with episodic hypertension associated with headache usually in the morning but by noon time BP drops and patient complains of transient dizziness. We'll continue IV fluids Florinef and ProAmatine. Status post neurology evaluation. Consulted cardiology secondary to persistent orthostatic hypotension. Trial caffeine. Consider octreotide - Echo essentially normal with EF 55%. - EKG showed NSR with 1st degree AV block which is typically a benign finding. - Continue salt tablets, compression stockings and abdominal binder. - Relative Adrenal insufficiency. Cortisol 12 despite hypotension will continue IV hydrocortisone status post decadron. -Acute kidney injury: Creatinine 1.45 improved to normal range with hydration. -diarrhea. Negative c difff. Improved. Lomotil as needed and lactinex - UTI - received Cipro. Urine cx mixed normal corbin. - Schizophrenia: Per report, pt recently d/c'd from [place] after 1yr hospitalization for Schizophrenia, currently under the care of local [facility] Associate. Not on antipsychotic medications per review of home meds. - Diabetes mellitus - Continue Metformin 500mg BID and Sliding scale insulin. Full code. Lovenox Qday. Discharge : Refer to rehabilitation. Discussed with CM. Discharge Planning Discharge planning underway. Case management following Problem Qualifiers (1) Syncope: Qualified Code: R55 - Syncope, unspecified syncope type (2) Schizophrenia: Qualified Code: F20.9 - Schizophrenia, unspecified type Jamie Fleming MD Oct 31, 2016 10:46
[2016-10-31] MEDS: 1/2 NS + KCL 20 MEQ INJ 1,000 ML IV SCH (18:14)
[2016-11-01] VITALS (10 sets, daily range): BP systolic 62–177; BP diastolic 46–119; PULSE 65–78; RESP 16–20; TEMP 97–98.3; O2SAT 96–98
[2016-11-01] MEDS: MIDODRINE 5 MG TAB PO SCH ×3 (05:47→17:27)
[2016-11-01] MEDS: PYRIDOSTIGMINE BROMIDE 60 MG TAB PO SCH ×3 (05:47→22:05)
[2016-11-01] MEDS: HYDROCORTISONE SOD SUCCINATE 100 MG VIAL IV PUSH SCH ×2 (05:48→21:49)
[2016-11-01] MEDS: 1/2 NS + KCL 20 MEQ INJ 1,000 ML IV SCH (05:53)
[2016-11-01] MEDS: INSULIN ASPART SUPPLEMENTAL SCALE SQ SCH ×4 (06:01→21:48)
[2016-11-01] MEDS: SODIUM CHLORIDE 1 GRAM TAB PO SCH ×2 (09:30→21:49)
[2016-11-01] MEDS: FERROUS FUMARATE 325 MG TAB (106 MG ELEMENTAL IRON) PO SCH (09:30)
[2016-11-01] MEDS: ENOXAPARIN SODIUM 40 MG/0.4 ML SYRINGE SQ SCH (09:30)
[2016-11-01] MEDS: FLUDROCORTISONE ACETATE 0.1 MG TAB PO SCH (09:30)
[2016-11-01] MEDS: SODIUM CHLORIDE 0.9% FLUSH 5 ML FLUSH FLUSH SCH ×2 (09:30→21:48)
[2016-11-01] MEDS: LACTOBACILLUS ACIDOPHILUS TAB PO SCH ×3 (09:30→17:27)
[2016-11-01] MEDS: MULTIVITAMINS/MINERALS THERAPEUTIC TAB PO SCH (09:30)
[2016-11-01] MEDS: metFORMIN HCL 500 MG TAB PO SCH ×2 (09:30→17:27)
[2016-11-01] MEDS: FOLIC ACID 1 MG TAB PO SCH (09:30)
--- NOTE | 2016-11-01 09:49 | HHI.PR ---
Subjective Remarks Patient denies cp/sob denies dizziness no further episodes of hypotension Objective Vitals Vital Signs Date Time Temp Pulse Resp B/P Pulse Ox O2 Delivery O2 Flow Rate FiO2 11/01/16 07:50 97.0 65 20 124/79 96 11/01/16 04:00 97.0 68 18 129/86 97 11/01/16 00:00 97.0 70 17 177/119 96 10/31/16 20:00 96.9 73 17 118/80 99 10/31/16 16:00 98.6 74 20 139/94 97 10/31/16 12:00 98.3 68 20 159/113 97 10/31/16 10:42 109/55 10/31/16 10:41 60/37 I/O 10/31/16 10/31/16 10/31/16 11/01/16 11/01/16 11/01/16 07:00 15:00 23:00 07:00 15:00 23:00 Intake Total 1296 ml 1080 ml 1512 ml 822 ml Output Total 700 ml 1350 ml 400 ml Balance 596 ml -270 ml 1112 ml 822 ml Intake Oral 240 ml 1080 ml 840 ml 150 ml IV Total 1056 ml 672 ml 672 ml Output Urine Total 700 ml 1350 ml 400 ml # Voids 2 3 3 5 # Bowel Movements 0 Imaging Last Impressions Brain MRI 10/16/16 0000 Signed Impressions: Service Date/Time: Sunday, October 16, 2016 14:58 - CONCLUSION: 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 Unremarkable posterior fossa. I do not see an etiology for the patient's persistent dizziness. Boom Philippe MD FACR Carotid Artery Ultrasound 10/11/16 0000 Signed Impressions: Service Date/Time: Tuesday, October 11, 2016 10:51 - CONCLUSION: 1. Mild visible plaque in the carotid arteries bilaterally. No hemodynamically significant stenosis identified. Vertebral artery flow antegrade bilaterally. Gordo Gibson MD Head CT 10/07/16 191 Signed Impressions: Service Date/Time: Friday, October 07, 2016 20:30 - CONCLUSION: 1. No evidence of acute hemorrhage or mass effect. 2. Right high frontal encephalomalacia suggesting old infarction. Prior aneurysm procedure with metallic artifact in the supraclinoid region. Brian Morse MD Chest X-Ray 10/07/161918 Signed Impressions: Service Date/Time: Friday, October 07, 2016 20:05 - CONCLUSION: The lungs are clear. Brian Morse MD Objective Remarks GENERAL: Well-nourished, well-developed pleasant middle aged AA female patient in NAD. SKIN: Warm and dry. No rash. HEAD: Normocephalic. Atraumatic. EYES: Pupils equal and round. No scleral icterus. No injection or drainage. ENT: No nasal bleeding or discharge. Mucous membranes pink and moist. NECK: Supple. Trachea midline. CARDIOVASCULAR: Regular rate and rhythm. S1, S2 noted. No murmur appreciated. RESPIRATORY: No accessory muscle use. Clear to auscultation. Breath sounds equal bilaterally. GASTROINTESTINAL: Abdomen soft, non-tender, nondistended. Normoactive bowel sounds x4. MUSCULOSKELETAL: No obvious deformities. Extremities without clubbing, cyanosis , or edema. NEUROLOGICAL: Awake and alert. No obvious cranial nerve deficits. Motor grossly within normal limits. 5/5 muscle strength in bilateral upper and lower extremities. Normal speech. Procedures Echo 10/08/2016. The cavity size was normal. Wall thickness was normal. Systolic function was normal. The estimated ejection fraction was 55%. Wall motion was normal; there were no regional wall motion abnormalities. Medications and IVs Current Medications Medications (Trade) Dose Ordered Sig/Willi Route Start Time Stop Time Status Last Admin (NS Flush) 2 ml UNSCH PRN FLUSH 10/07/16 21:30 (NS Flush) 2 ml BID FLUSH 10/08/16 09:00 10/30/16 08:51 (Zofran Inj) 4 mg Q6H PRN IVP 10/07/16 21:30 10/28/16 23:03 (Dulcolax Supp) 10 mg DAILY PRN [place] 10/07/16 21:30 (Tylenol) 650 mg Q6H PRN PO 10/07/16 21:30 10/23/16 08:21 (D50w (Vial) Inj) 25 ml UNSCH PRN IV PUSH 10/13/16 11:45 (Glucagon Inj) 1 mg UNSCH PRN OTHER 10/13/16 11:45 (Pill Splitter) 1 ea UNSCH PRN OTHER 10/13/16 12:15 (Mestinon) 60 mg Q8HR PO 10/14/16 22:00 11/01/16 05:47 (Folate) 1 mg DAILY PO 10/15/16 09:00 10/31/16 10:32 (Theragran M Tab) 1 tab DAILY PO 10/15/16 09:00 10/31/16 10:31 (Hemocyte) 325 mg DAILY PO 10/15/16 09:00 10/31/16 10:38 (Glucophage) 500 mg BIDPC PO 10/14/16 19:15 10/31/16 18:10 (Sodium Chloride) 1 gm BID PO 10/16/16 21:00 10/31/16 21:11 (Lovenox Inj) 40 mg DAILY SQ 10/17/16 09:00 10/31/16 10:33 (Pill Splitter) 1 ea UNSCH PRN OTHER 10/19/16 14:15 (Lactinex) 1 tab TID PO 10/21/16 09:00 10/31/16 18:10 (SoluCORTEF INJ) 50 mg Q8HR IV PUSH 10/22/16 00:00 11/01/16 05:48 (Lomotil Tab) 1 tab Q6H PRN PO 10/22/16 16:00 Fludrocortisone Acetate 0.1 mg 0.1 mg DAILY PO 10/24/16 09:00 10/31/16 10:32 (1/2 NS + KCl 20 Meq Inj) 1,000 ml @ 84 mls/hr [id number] IV 10/25/16 14:00 11/01/16 05:53 (Proamatine) 10 mg TID@,,17 PO 10/30/16 07:00 11/01/16 05:47 Urinary Catheter: No Vascular Central Line Catheter: No A/P Problem List: (1) Orthostatic hypotension ICD Code: I95.1 Status: Acute Plan: Ms. Packer is a 61-year-old female with a PMH of Schizophrenia was brought to the ER by Home Health Animal Nurse with whom the patient lives secondary to multiple falls. - Positive orthostatic vitals signs on admission, secondary to dehydration. BP improved with hydration. - However, orthostatics remains positive but slowly improving since starting steroids. Now with episodic hypertension associated with headache usually in the morning but by noon time BP droped and patient complains of transient dizziness. Will dC IV fluids. - Status post neurology evaluation. Consulted cardiology secondary to persistent orthostatic hypotension. Trial caffeine. Consider octreotide - Echo essentially normal with EF 55%. - EKG showed NSR with 1st degree AV block which is typically a benign finding. - Continue salt tablets, compression stockings and abdominal binder. - Relative Adrenal insufficiency. Cortisol 12 despite hypotension will continue IV hydrocortisone status post Decadron. - Start hydrocortisone taper, decrease dose to 50 mg IV every 12 hours (2) Syncope ICD Code: R55 Status: Resolved Plan: likely vasovagal secondary to dehydration/orthostatic hypotension. CT Head w/ no acute findings. (3) ALFONSO (acute kidney injury) ICD Code: N17.9 Status: Resolved Plan: Patient presented with a creatinine of 1.4, acute kidney injury after IV fluid administration. Continue to monitor BUN/creatinine on strict I's and O's. (4) Schizophrenia ICD Code: F20.9 Status: Chronic Plan: Per report, pt recently d/c'd from [place] after 1yr hospitalization for Schizophrenia, currently under the care of local Healthcare Associate. Not on antipsychotic medications per review of home meds. (5) UTI (urinary tract infection) ICD Code: N39.0 Status: Resolved Plan: received Cipro. Urine cx mixed normal corbin. (6) Prediabetes ICD Code: R73.03 Status: Chronic Plan: Hemoglobin A1c 6.0. Continue metformin 500 mg by mouth twice a day. Blood sugar seems to be stable. Continue as is it with insulin NovoLog. (7) Microcytic anemia ICD Code: D50.9 Status: Acute Plan: Iron studies normal with slightly low percent saturation. Total iron 55 , percent saturation to 286, percent saturation 19.3 and ferritin 177. Hemoccult negative. Continue oral iron. Discharge Planning Discharge Pending improvement of orthostatic hypotension and symptoms. Patient will need rehabilitation. Problem Qualifiers (1) Syncope: Qualified Code: R55 - Syncope, unspecified syncope type (2) Schizophrenia: Qualified Code: F20.9 - Schizophrenia, unspecified type Lawrence Jacques MD Nov 01, 2016 09:49 - Diabetes mellitus - Continue Metformin 500mg BID and Sliding scale insulin. Full code. Lovenox Qday. Discharge : Refer to rehabilitation. Discussed with CM. Discharge Planning Discharge Pending improvement of orthostatic hypotension and symptoms. Patient will need rehabilitation. Problem Qualifiers (1) Syncope: Qualified Code: R55 - Syncope, unspecified syncope type (2) Schizophrenia: Qualified Code: F20.9 - Schizophrenia, unspecified type Lawrence Jacques MD Nov 01, 2016 09:49
[2016-11-02] VITALS (9 sets, daily range): BP systolic 50–182; BP diastolic 35–126; PULSE 62–84; RESP 16–20; TEMP 97.2–98.4; O2SAT 95–98
[2016-11-02] MEDS: MIDODRINE 5 MG TAB PO SCH ×3 (05:52→17:58)
[2016-11-02] MEDS: PYRIDOSTIGMINE BROMIDE 60 MG TAB PO SCH ×3 (05:53→23:18)
[2016-11-02] MEDS: INSULIN ASPART SUPPLEMENTAL SCALE SQ SCH ×4 (05:56→21:00)
[2016-11-02] MEDS: ENOXAPARIN SODIUM 40 MG/0.4 ML SYRINGE SQ SCH (09:20)
[2016-11-02] MEDS: HYDROCORTISONE SOD SUCCINATE 100 MG VIAL IV PUSH SCH (09:20)
[2016-11-02] MEDS: SODIUM CHLORIDE 0.9% FLUSH 5 ML FLUSH FLUSH SCH ×2 (09:21→23:18)
[2016-11-02] MEDS: FOLIC ACID 1 MG TAB PO SCH (09:21)
[2016-11-02] MEDS: SODIUM CHLORIDE 1 GRAM TAB PO SCH ×2 (09:21→23:18)
[2016-11-02] MEDS: FLUDROCORTISONE ACETATE 0.1 MG TAB PO SCH (09:21)
[2016-11-02] MEDS: metFORMIN HCL 500 MG TAB PO SCH ×2 (09:21→17:58)
[2016-11-02] MEDS: FERROUS FUMARATE 325 MG TAB (106 MG ELEMENTAL IRON) PO SCH (09:21)
[2016-11-02] MEDS: MULTIVITAMINS/MINERALS THERAPEUTIC TAB PO SCH (09:21)
[2016-11-02] MEDS: LACTOBACILLUS ACIDOPHILUS TAB PO SCH ×3 (09:21→17:58)
[2016-11-02] MEDS ORDERED: FLUDROCORTISONE ACETATE 0.1 MG TAB PO ONE (10:30)
--- NOTE | 2016-11-02 20:08 | HHI.PR ---
Subjective Remarks Deferred entry - patient seen at 9:30 Patient states she still feels dizzy when sitting up patient still orthostatic denies cp/sob Objective Vitals Vital Signs Date Time Temp Pulse Resp B/P Pulse Ox O2 Delivery O2 Flow Rate FiO2 11/02/16 15:51 97.5 78 20 114/77 98 11/02/16 14:31 98.4 84 20 101/65 98 11/02/16 14:30 83 107/70 11/02/16 07:51 62 50/41 11/02/16 07:50 98.4 67 20 73/52 96 11/02/16 04:00 97.2 67 16 96/62 97 11/02/16 01:07 68 168/116 11/02/16 01:05 97.6 68 16 164/107 97 11/01/16 20:00 98.0 72 16 139/94 97 I/O 11/01/16 11/01/16 11/01/16 11/02/16 11/02/16 11/02/16 06:59 14:59 22:59 06:59 14:59 22:59 Intake Total 822 ml 1884 ml 1170 ml 1032 ml 600 ml Output Total 800 ml 400 ml 1200 ml 600 ml Balance 822 ml 1084 ml 770 ml -168 ml 0 ml Intake Oral 150 ml 1884 ml 500 ml 360 ml 600 ml IV Total 672 ml 670 ml 672 ml Output Urine Total 800 ml 400 ml 1200 ml 600 ml # Voids 5 1 1 2 # Bowel Movements 2 1 0 Imaging Last Impressions Brain MRI 10/16/16 0000 Signed Impressions: Service Date/Time: Sunday, October 16, 2016 14:58 - CONCLUSION: 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 Unremarkable posterior fossa. I do not see an etiology for the patient's persistent dizziness. Boom Philippe MD FACR Carotid Artery Ultrasound 10/11/16 0000 Signed Impressions: Service Date/Time: Tuesday, October 11, 2016 10:51 - CONCLUSION: 1. Mild visible plaque in the carotid arteries bilaterally. No hemodynamically significant stenosis identified. Vertebral artery flow antegrade bilaterally. Gordo Gibson MD Head CT 10/07/16 191 Signed Impressions: Service Date/Time: Friday, October 07, 2016 20:30 - CONCLUSION: 1. No evidence of acute hemorrhage or mass effect. 2. Right high frontal encephalomalacia suggesting old infarction. Prior aneurysm procedure with metallic artifact in the supraclinoid region. Brian Morse MD Chest X-Ray 10/07/161918 Signed Impressions: Service Date/Time: Friday, October 07, 2016 20:05 - CONCLUSION: The lungs are clear. Brian Morse MD Objective Remarks GENERAL: Well-nourished, well-developed pleasant middle aged AA female patient in NAD. SKIN: Warm and dry. No rash. HEAD: Normocephalic. Atraumatic. EYES: Pupils equal and round. No scleral icterus. No injection or drainage. ENT: No nasal bleeding or discharge. Mucous membranes pink and moist. NECK: Supple. Trachea midline. CARDIOVASCULAR: Regular rate and rhythm. S1, S2 noted. No murmur appreciated. RESPIRATORY: No accessory muscle use. Clear to auscultation. Breath sounds equal bilaterally. GASTROINTESTINAL: Abdomen soft, non-tender, nondistended. Normoactive bowel sounds x4. MUSCULOSKELETAL: No obvious deformities. Extremities without clubbing, cyanosis , or edema. NEUROLOGICAL: Awake and alert. No obvious cranial nerve deficits. Motor grossly within normal limits. 5/5 muscle strength in bilateral upper and lower extremities. Normal speech. Procedures Echo 10/08/2016. The cavity size was normal. Wall thickness was normal. Systolic function was normal. The estimated ejection fraction was 55%. Wall motion was normal; there were no regional wall motion abnormalities. Medications and IVs Current Medications Medications (Trade) Dose Ordered Sig/Willi Route Start Time Stop Time Status Last Admin (NS Flush) 2 ml UNSCH PRN FLUSH 10/07/16 21:30 (NS Flush) 2 ml BID FLUSH 10/08/16 09:00 11/02/16 09:21 (Zofran Inj) 4 mg Q6H PRN IVP 10/07/16 21:30 10/28/16 23:03 (Dulcolax Supp) 10 mg DAILY PRN [place] 10/07/16 21:30 (Tylenol) 650 mg Q6H PRN PO 10/07/16 21:30 10/23/16 08:21 (D50w (Vial) Inj) 25 ml UNSCH PRN IV PUSH 10/13/16 11:45 (Glucagon Inj) 1 mg UNSCH PRN OTHER 2/3/17 11:45 (Pill Splitter) 1 ea UNSCH PRN OTHER 10/13/16 12:15 (Mestinon) 60 mg Q8HR PO 10/14/16 22:00 11/02/16 14:06 (Folate) 1 mg DAILY PO 10/15/16 09:00 11/02/16 09:21 (Theragran M Tab) 1 tab DAILY PO 10/15/16 09:00 11/02/16 09:21 (Hemocyte) 325 mg DAILY PO 10/15/16 09:00 11/02/16 09:21 (Glucophage) 500 mg BIDPC PO 10/14/16 19:15 11/02/16 17:58 (Sodium Chloride) 1 gm BID PO 10/16/16 21:00 11/02/16 09:21 (Lovenox Inj) 40 mg DAILY SQ 10/17/16 09:00 11/02/16 09:20 (Lactinex) 1 tab TID PO 10/21/16 09:00 11/02/16 17:58 (Lomotil Tab) 1 tab Q6H PRN PO 10/22/16 16:00 (Proamatine) 10 mg TID@,,17 PO 10/30/16 07:00 11/02/16 17:58 (Florinef) 0.2 mg DAILY PO 11/03/16 09:00 (SoluCORTEF INJ) 50 mg DAILY IV PUSH 11/03/16 09:00 A/P Problem List: (1) Orthostatic hypotension ICD Code: I95.1 Status: Acute (2) Syncope ICD Code: R55 Status: Resolved (3) ALFONSO (acute kidney injury) ICD Code: N17.9 Status: Resolved (4) Schizophrenia ICD Code: F20.9 Status: Chronic (5) UTI (urinary tract infection) ICD Code: N39.0 Status: Resolved (6) Prediabetes ICD Code: R73.03 Status: Chronic (7) Microcytic anemia ICD Code: D50.9 Status: Acute Assessment and Plan (1) Orthostatic hypotension ICD Code: I95.1 Status: Acute Plan: Ms. Packer is a 61-year-old female with a PMH of Schizophrenia was brought to the ER by Home Health Cytogeneticist with whom the patient lives secondary to multiple falls. - Positive orthostatic vitals signs on admission, secondary to dehydration. BP improved with hydration. - However, orthostatics remains positive but slowly improving since starting steroids. Now with episodic hypertension associated with headache usually in the morning but by noon time BP droped and patient complains of transient dizziness. Will dC IV fluids. - Status post neurology evaluation. Consulted cardiology secondary to persistent orthostatic hypotension. Trial caffeine. Consider octreotide - Echo essentially normal with EF 55%. - EKG showed NSR with 1st degree AV block which is typically a benign finding. - Continue salt tablets, compression stockings and abdominal binder. - Relative Adrenal insufficiency. Cortisol 12 despite hypotension will continue IV hydrocortisone status post Decadron. - 11/02 Continue Hydrocortisone taper - Decrease dose to once a day. Patient still with orthostatic hypotension - Increase Fludrocortisone to 0.2 mg daily. (2) Syncope ICD Code: R55 Status: Resolved Plan: likely vasovagal secondary to dehydration/orthostatic hypotension. CT Head w/ no acute findings. (3) ALFONSO (acute kidney injury) ICD Code: N17.9 Status: Resolved Plan: Patient presented with a creatinine of 1.4, acute kidney injury after IV fluid administration. Continue to monitor BUN/creatinine on strict I's and O's. (4) Schizophrenia ICD Code: F20.9 Status: Chronic Plan: Per report, pt recently d/c'd from [place] after 1yr hospitalization for Schizophrenia, currently under the care of local Healthcare Associate. Not on antipsychotic medications per review of home meds. (5) UTI (urinary tract infection) ICD Code: N39.0 Status: Resolved Plan: received Cipro. Urine cx mixed normal corbin. (6) Prediabetes ICD Code: R73.03 Status: Chronic Plan: Hemoglobin A1c 6.0. Continue metformin 500 mg by mouth twice a day. Blood sugar seems to be stable. Continue as is it with insulin NovoLog. (7) Microcytic anemia ICD Code: D50.9 Status: Acute Plan: Iron studies normal with slightly low percent saturation. Total iron 55 , percent saturation to 286, percent saturation 19.3 and ferritin 177. Hemoccult negative. Continue oral iron. Discharge Planning Discharge Pending improvement of orthostatic hypotension and symptoms. Patient will need rehabilitation. Problem Qualifiers (1) Syncope: Qualified Code: R55 - Syncope, unspecified syncope type (2) Schizophrenia: Qualified Code: F20.9 - Schizophrenia, unspecified type Lawrence Jacques MD Nov 02, 2016 20:08
[2016-11-03] VITALS: BP 101/66; PULSE 79; RESP 16; TEMP 97.2; O2SAT 95
[2016-11-03 04:00] VITALS: BP 98/56; PULSE 59; RESP 16; TEMP 96.8; O2SAT 94
[2016-11-03] MEDS: INSULIN ASPART SUPPLEMENTAL SCALE SQ SCH ×3 (05:39→16:00)
[2016-11-03] MEDS: MIDODRINE 5 MG TAB PO SCH ×3 (05:40→17:02)
[2016-11-03] MEDS: PYRIDOSTIGMINE BROMIDE 60 MG TAB PO SCH ×3 (05:40→21:03)
[2016-11-03 08:00] VITALS: BP_SYST 136; BP_SYST 70; BP_DIAS 47; BP_DIAS 82; PULSE 65; RESP 18; TEMP 96.9; O2SAT 98
[2016-11-03] MEDS ORDERED: FLUDROCORTISONE ACETATE 0.1 MG TAB PO SCH (09:00)
[2016-11-03] MEDS ORDERED: HYDROCORTISONE SOD SUCCINATE 100 MG VIAL IV PUSH SCH (09:00)
[2016-11-03] MEDS: ENOXAPARIN SODIUM 40 MG/0.4 ML SYRINGE SQ SCH (10:05)
[2016-11-03] MEDS: SODIUM CHLORIDE 0.9% FLUSH 5 ML FLUSH FLUSH SCH ×2 (10:06→21:03)
[2016-11-03] MEDS: SODIUM CHLORIDE 1 GRAM TAB PO SCH ×2 (10:06→21:03)
[2016-11-03] MEDS: FERROUS FUMARATE 325 MG TAB (106 MG ELEMENTAL IRON) PO SCH (10:06)
[2016-11-03] MEDS: LACTOBACILLUS ACIDOPHILUS TAB PO SCH ×3 (10:06→17:02)
[2016-11-03] MEDS: MULTIVITAMINS/MINERALS THERAPEUTIC TAB PO SCH (10:06)
[2016-11-03] MEDS: FOLIC ACID 1 MG TAB PO SCH (10:06)
[2016-11-03] MEDS: metFORMIN HCL 500 MG TAB PO SCH ×2 (10:11→17:02)
[2016-11-03 14:30] VITALS: BP_SYST 102; BP_SYST 70; BP_DIAS 48; BP_DIAS 70; PULSE 91; RESP 18; TEMP 97.4; O2SAT 94
[2016-11-03 16:52] VITALS: BP 116/84; PULSE 91; RESP 18; TEMP 96.5; O2SAT 96
--- NOTE | 2016-11-03 17:08 | HHI.PR ---
Subjective Remarks Patient still complains of dizziness upon sitting and standing. Patient still has orthostatic hypotension Denies chest pain or shortness of breath Objective Vitals Vital Signs Date Time Temp Pulse Resp B/P Pulse Ox O2 Delivery O2 Flow Rate FiO2 11/03/16 16:52 96.5 91 18 116/84 96 11/03/16 14:30 97.4 91 18 102/70 94 70/48 11/03/16 08:00 96.9 65 18 136/82 98 70/47 11/03/16 04:00 96.8 59 16 98/56 94 11/03/16 00:00 97.2 79 16 101/66 95 11/02/16 20:00 80 82/35 11/02/16 20:00 97.4 76 16 182/126 95 I/O 11/02/16 11/02/16 11/02/16 11/03/16 11/03/16 11/03/16 07:00 15:00 23:00 07:00 15:00 23:00 Intake Total 1032 ml 600 ml 430 ml 350 ml 360 ml Output Total 1200 ml 600 ml 300 ml 500 ml Balance -168 ml 0 ml 130 ml -150 ml 360 ml Intake Oral 360 ml 600 ml 430 ml 350 ml 360 ml IV Total 672 ml Output Urine Total 1200 ml 600 ml 300 ml 500 ml # Voids 2 1 # Bowel Movements 1 0 0 0 2 Objective Remarks GENERAL: Well-nourished, well-developed pleasant middle aged AA female patient in [facility]. SKIN: Warm and dry. No rash. HEAD: Normocephalic. Atraumatic. EYES: Pupils equal and round. No scleral icterus. No injection or drainage. ENT: No nasal bleeding or discharge. Mucous membranes pink and moist. NECK: Supple. Trachea midline. CARDIOVASCULAR: Regular rate and rhythm. S1, S2 noted. No murmur appreciated. RESPIRATORY: No accessory muscle use. Clear to auscultation. Breath sounds equal bilaterally. GASTROINTESTINAL: Abdomen soft, non-tender, nondistended. Normoactive bowel sounds x4. MUSCULOSKELETAL: No obvious deformities. Extremities without clubbing, cyanosis , or edema. NEUROLOGICAL: Awake and alert. No obvious cranial nerve deficits. Motor grossly within normal limits. 5/5 muscle strength in bilateral upper and lower extremities. Normal speech. Procedures Echo 10/08/2016. The cavity size was normal. Wall thickness was normal. Systolic function was normal. The estimated ejection fraction was 55%. Wall motion was normal; there were no regional wall motion abnormalities. Medications and IVs Current Medications Medications (Trade) Dose Ordered Sig/Willi Route Start Time Stop Time Status Last Admin (NS Flush) 2 ml UNSCH PRN FLUSH 10/07/16 21:30 (NS Flush) 2 ml BID FLUSH 10/08/16 09:00 11/03/16 10:06 (Zofran Inj) 4 mg Q6H PRN IVP 10/07/16 21:30 10/28/16 23:03 (Dulcolax Supp) 10 mg DAILY PRN [place] 10/07/16 21:30 (Tylenol) 650 mg Q6H PRN PO 10/07/16 21:30 10/23/16 08:21 (D50w (Vial) Inj) 25 ml UNSCH PRN IV PUSH 10/13/16 11:45 (Glucagon Inj) 1 mg UNSCH PRN OTHER 10/13/16 11:45 (Pill Splitter) 1 ea UNSCH PRN OTHER 10/13/16 12:15 (Mestinon) 60 mg Q8HR PO 10/14/16 22:00 11/03/16 13:55 (Folate) 1 mg DAILY PO 10/15/16 09:00 11/03/16 10:06 (Theragran M Tab) 1 tab DAILY PO 10/15/16 09:00 11/03/16 10:06 (Hemocyte) 325 mg DAILY PO 10/15/16 09:00 11/03/16 10:06 (Glucophage) 500 mg BIDPC PO 10/14/16 19:15 11/03/16 10:11 (Sodium Chloride) 1 gm BID PO 10/16/16 21:00 11/03/16 10:06 (Lovenox Inj) 40 mg DAILY SQ 10/17/16 09:00 11/03/16 10:05 (Lactinex) 1 tab TID PO 10/21/16 09:00 11/03/16 12:19 (Lomotil Tab) 1 tab Q6H PRN PO 10/22/16 16:00 (Proamatine) 10 mg TID@07,12,17 PO 10/30/16 07:00 11/03/16 12:19 (SoluCORTEF INJ) 50 mg DAILY IV PUSH 11/03/16 09:00 11/03/16 10:05 (Florinef) 0.3 mg DAILY PO 11/04/16 09:00 Urinary Catheter: No Vascular Central Line Catheter: No A/P Problem List: (1) Orthostatic hypotension ICD Code: I95.1 Status: Acute (2) Syncope ICD Code: R55 Status: Resolved (3) ALFONSO (acute kidney injury) ICD Code: N17.9 Status: Resolved (4) Schizophrenia ICD Code: F20.9 Status: Chronic (5) UTI (urinary tract infection) ICD Code: N39.0 Status: Resolved (6) Prediabetes ICD Code: R73.03 Status: Chronic (7) Microcytic anemia ICD Code: D50.9 Status: Acute Assessment and Plan (1) Orthostatic hypotension ICD Code: I95.1 Status: Acute Plan: Ms. Packer is a 61-year-old female with a PMH of Schizophrenia was brought to the ER by [facility] with whom the patient lives secondary to multiple falls. - Positive orthostatic vitals signs on admission, secondary to dehydration. BP improved with hydration. - However, orthostatics remains positive but slowly improving since starting steroids. Now with episodic hypertension associated with headache usually in the morning but by noon time BP droped and patient complains of transient dizziness. Will dC IV fluids. - Status post neurology evaluation. Consulted cardiology secondary to persistent orthostatic hypotension. Trial caffeine. Consider octreotide - Echo essentially normal with EF 55%. - EKG showed NSR with 1st degree AV block which is typically a benign finding. - Continue salt tablets, compression stockings and abdominal binder. - Relative Adrenal insufficiency. Cortisol 12 despite hypotension will continue IV hydrocortisone status post Decadron. - 11/02 Continue Hydrocortisone taper - Decrease dose to once a day. Patient still with orthostatic hypotension - Increase Fludrocortisone to 0.2 mg daily. - 11/03 Patient still orthostatic. Increase fludrocortisone to 0.3 mg by mouth daily. Discontinue hydrocortisone as the patient is on fludrocortisone. I will start on Octreotide if still orthostatic. (2) Syncope Plan: likely vasovagal secondary to dehydration/orthostatic hypotension. CT Head w/ no acute findings. No further syncopal episodes. (3) ALFONSO (acute kidney injury) Plan: Patient presented with a creatinine of 1.4, acute kidney injury after IV fluid administration. Continue to monitor BUN/creatinine on strict I's and O's. (4) Schizophrenia Plan: Per report, pt recently d/c'd from [facility] after 1yr hospitalization for Schizophrenia, currently under the care of local [facility]. Not on antipsychotic medications per review of home meds. (5) UTI (urinary tract infection) Plan: received Cipro. Urine cx mixed normal corbin. (6) Prediabetes Plan: Hemoglobin A1c 6.0. Continue metformin 500 mg by mouth twice a day. Blood sugar seems to be stable. Continue as is it with insulin NovoLog. (7) Microcytic anemia Plan: Iron studies normal with slightly low percent saturation. Total iron 55 , percent saturation to 286, percent saturation 19.3 and ferritin 177. Hemoccult negative. Continue oral iron. Discharge Planning Discharge Pending improvement of orthostatic hypotension and symptoms. Patient will need rehabilitation. Problem Qualifiers (1) Syncope: Qualified Code: R55 - Syncope, unspecified syncope type (2) Schizophrenia: Qualified Code: F20.9 - Schizophrenia, unspecified type Lawrence Jacques MD Nov 03, 2016 17:08
[2016-11-03] MEDS ORDERED: FLUDROCORTISONE ACETATE 0.1 MG TAB PO ONE (17:15)
[2016-11-03 20:00] VITALS: BP 133/88; PULSE 81; RESP 17; TEMP 96.4; O2SAT 99
[2016-11-04] VITALS: BP 129/90; PULSE 85; RESP 18; TEMP 97.8; O2SAT 98
[2016-11-04 04:00] VITALS: BP 141/96; PULSE 76; RESP 17; TEMP 97; O2SAT 97
[2016-11-04] MEDS: MIDODRINE 5 MG TAB PO SCH ×3 (05:10→18:12)
[2016-11-04] MEDS: PYRIDOSTIGMINE BROMIDE 60 MG TAB PO SCH ×3 (05:10→21:30)
[2016-11-04 08:00] VITALS: BP 96/64; PULSE 64; RESP 18; TEMP 97.7; O2SAT 99
[2016-11-04] MEDS ORDERED: FLUDROCORTISONE ACETATE 0.1 MG TAB PO SCH ×2 (09:00)
[2016-11-04] MEDS: FOLIC ACID 1 MG TAB PO SCH (10:17)
[2016-11-04] MEDS: metFORMIN HCL 500 MG TAB PO SCH ×2 (10:17→18:12)
[2016-11-04] MEDS: LACTOBACILLUS ACIDOPHILUS TAB PO SCH ×3 (10:17→18:12)
[2016-11-04] MEDS: SODIUM CHLORIDE 1 GRAM TAB PO SCH ×2 (10:18→21:30)
[2016-11-04] MEDS: MULTIVITAMINS/MINERALS THERAPEUTIC TAB PO SCH (10:18)
[2016-11-04] MEDS: FERROUS FUMARATE 325 MG TAB (106 MG ELEMENTAL IRON) PO SCH (10:18)
[2016-11-04] MEDS: ENOXAPARIN SODIUM 40 MG/0.4 ML SYRINGE SQ SCH (10:19)
[2016-11-04] MEDS: SODIUM CHLORIDE 0.9% FLUSH 5 ML FLUSH FLUSH SCH ×2 (10:19→21:30)
[2016-11-04] MEDS: FLUDROCORTISONE ACETATE 0.1 MG TAB PO SCH (10:19)
--- NOTE | 2016-11-04 11:47 | HHI.PR ---
Subjective Remarks Patient states that she does not feel dizzy anymore when sitting up Dizziness has improved substantially when she is standing Patient is still has orthostatic hypotension denies cp/sob Objective Vitals Vital Signs Date Time Temp Pulse Resp B/P Pulse Ox O2 Delivery O2 Flow Rate FiO2 11/04/16 08:00 97.7 64 18 96/64 99 11/04/16 04:00 97.0 76 17 141/96 97 11/04/16 00:00 97.8 85 18 129/90 98 11/03/16 20:00 96.4 81 17 133/88 99 11/03/16 16:52 96.5 91 18 116/84 96 11/03/16 14:30 97.4 91 18 102/70 94 70/48 I/O 11/03/16 11/03/16 11/03/16 11/04/16 11/04/16 11/04/16 07:00 15:00 23:00 07:00 15:00 23:00 Intake Total 350 ml 360 ml 480 ml 240 ml Output Total 500 ml 300 ml 350 ml Balance -150 ml 360 ml 180 ml -110 ml Intake Oral 350 ml 360 ml 480 ml 240 ml Output Urine Total 500 ml 300 ml 350 ml # Voids 1 # Bowel Movements 0 2 Imaging Last Impressions Brain MRI 10/16/16 0000 Signed Impressions: Service Date/Time: Sunday, October 16, 2016 14:58 - CONCLUSION: 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 Unremarkable posterior fossa. I do not see an etiology for the patient's persistent dizziness. Boom Philippe MD FACR Carotid Artery Ultrasound 10/11/16 0000 Signed Impressions: Service Date/Time: Tuesday, October 11, 2016 10:51 - CONCLUSION: 1. Mild visible plaque in the carotid arteries bilaterally. No hemodynamically significant stenosis identified. Vertebral artery flow antegrade bilaterally. Gordo Gibson MD Head CT 10/07/161918 Signed Impressions: Service Date/Time: Friday, October 07, 2016 20:30 - CONCLUSION: 1. No evidence of acute hemorrhage or mass effect. 2. Right high frontal encephalomalacia suggesting old infarction. Prior aneurysm procedure with metallic artifact in the supraclinoid region. Brian Morse MD Chest X-Ray 10/07/161918 Signed Impressions: Service Date/Time: Friday, October 07, 2016 20:05 - CONCLUSION: The lungs are clear. Brian Morse MD Objective Remarks GENERAL: Well-nourished, well-developed pleasant middle aged AA female patient in [facility]. SKIN: Warm and dry. No rash. HEAD: Normocephalic. Atraumatic. EYES: Pupils equal and round. No scleral icterus. No injection or drainage. ENT: No nasal bleeding or discharge. Mucous membranes pink and moist. NECK: Supple. Trachea midline. CARDIOVASCULAR: Regular rate and rhythm. S1, S2 noted. No murmur appreciated. RESPIRATORY: No accessory muscle use. Clear to auscultation. Breath sounds equal bilaterally. GASTROINTESTINAL: Abdomen soft, non-tender, nondistended. Normoactive bowel sounds x4. MUSCULOSKELETAL: No obvious deformities. Extremities without clubbing, cyanosis , or edema. NEUROLOGICAL: Awake and alert. No obvious cranial nerve deficits. Motor grossly within normal limits. 5/5 muscle strength in bilateral upper and lower extremities. Normal speech. Procedures Echo 10/08/2016. The cavity size was normal. Wall thickness was normal. Systolic function was normal. The estimated ejection fraction was 55%. Wall motion was normal; there were no regional wall motion abnormalities. Medications and IVs Current Medications Medications (Trade) Dose Ordered Sig/Willi Route Start Time Stop Time Status Last Admin (NS Flush) 2 ml UNSCH PRN FLUSH 10/07/16 21:30 (NS Flush) 2 ml BID FLUSH 10/08/16 09:00 11/04/16 10:19 (Zofran Inj) 4 mg Q6H PRN IVP 10/07/16 21:30 11/04/16 13:25 (Dulcolax Supp) 10 mg DAILY PRN [place] 10/07/16 21:30 (Tylenol) 650 mg Q6H PRN PO 10/07/16 21:30 10/23/16 08:21 (Pill Splitter) 1 ea UNSCH PRN OTHER 10/13/16 12:15 (Mestinon) 60 mg Q8HR PO 10/14/16 22:00 11/04/16 13:27 (Folate) 1 mg DAILY PO 10/15/16 09:00 11/04/16 10:17 (Theragran M Tab) 1 tab DAILY PO 10/15/16 09:00 11/04/16 10:18 (Hemocyte) 325 mg DAILY PO 10/15/16 09:00 11/04/16 10:18 (Glucophage) 500 mg BIDPC PO 10/14/16 19:15 11/04/16 10:17 (Sodium Chloride) 1 gm BID PO 10/16/16 21:00 11/04/16 10:18 (Lovenox Inj) 40 mg DAILY SQ 10/17/16 09:00 11/04/16 10:19 (Lactinex) 1 tab TID PO 10/21/16 09:00 11/04/16 13:27 (Lomotil Tab) 1 tab Q6H PRN PO 10/22/16 16:00 (Proamatine) 10 mg TID@,, PO 10/30/16 07:00 11/04/16 13:27 (Florinef) 0.3 mg DAILY PO 11/04/16 09:00 11/04/16 10:19 Urinary Catheter: No Vascular Central Line Catheter: No A/P Problem List: (1) Orthostatic hypotension ICD Code: I95.1 Status: Acute (2) Syncope ICD Code: R55 Status: Resolved (3) ALFONSO (acute kidney injury) ICD Code: N17.9 Status: Resolved (4) Schizophrenia ICD Code: F20.9 Status: Chronic (5) UTI (urinary tract infection) ICD Code: N39.0 Status: Resolved (6) Prediabetes ICD Code: R73.03 Status: Chronic (7) Microcytic anemia ICD Code: D50.9 Status: Acute Assessment and Plan (1) Orthostatic hypotension ICD Code: I95.1 Status: Acute Plan: Ms. Packer is a 61-year-old female with a PMH of Schizophrenia was brought to the ER by [facility] [facility] [facility] with whom the patient lives secondary to multiple falls. - Positive orthostatic vitals signs on admission, secondary to dehydration. BP improved with hydration. - However, orthostatics remains positive but slowly improving since starting steroids. Now with episodic hypertension associated with headache usually in the morning but by noon time BP droped and patient complains of transient dizziness. Will dC IV fluids. - Status post neurology evaluation. Consulted cardiology secondary to persistent orthostatic hypotension. Trial caffeine. Consider octreotide - Echo essentially normal with EF 55%. - EKG showed NSR with 1st degree AV block which is typically a benign finding. - Continue salt tablets, compression stockings and abdominal binder. - Relative Adrenal insufficiency. Cortisol 12 despite hypotension will continue IV hydrocortisone status post Decadron. - 11/02 Continue Hydrocortisone taper - Decrease dose to once a day. Patient still with orthostatic hypotension - Increase Fludrocortisone to 0.2 mg daily. - 11/03 Patient still orthostatic. Increase fludrocortisone to 0.3 mg by mouth daily. Discontinue hydrocortisone as the patient is on fludrocortisone. I will start on Octreotide if still orthostatic. - 11/04 Orthostatsis improving. Patient not dizzy when sitting and dizziness upon standing is much improved. Will give a trial of Octreotide. (2) Syncope Plan: likely vasovagal secondary to dehydration/orthostatic hypotension. CT Head w/ no acute findings. No further syncopal episodes. (3) ALFONSO (acute kidney injury) Plan: Patient presented with a creatinine of 1.4, acute kidney injury after IV fluid administration. Continue to monitor BUN/creatinine on strict I's and O's. (4) Schizophrenia Plan: Per report, pt recently d/c'd from [place] after 1yr hospitalization for Schizophrenia, currently under the care of local [facility]. Not on antipsychotic medications per review of home meds. (5) UTI (urinary tract infection) Plan: received Cipro. Urine cx mixed normal corbin. (6) Prediabetes Plan: Hemoglobin A1c 6.0. Continue metformin 500 mg by mouth twice a day. Blood sugar seems to be stable. Continue as is it with insulin NovoLog. (7) Microcytic anemia Plan: Iron studies normal with slightly low percent saturation. Total iron 55 , percent saturation to 286, percent saturation 19.3 and ferritin 177. Hemoccult negative. Continue oral iron. Discharge Planning Discharge Pending improvement of orthostatic hypotension and symptoms. Patient will need rehabilitation. Problem Qualifiers (1) Syncope: Qualified Code: R55 - Syncope, unspecified syncope type (2) Schizophrenia: Qualified Code: F20.9 - Schizophrenia, unspecified type Lawrence Jacques MD Nov 04, 2016 11:47
[2016-11-04 13:14] VITALS: BP 92/58; PULSE 72
[2016-11-04] MEDS: ONDANSETRON HCL 4 MG/2 ML VIAL IVP PRN (13:25)
[2016-11-04 16:00] VITALS: BP 149/85; PULSE 84; RESP 18; TEMP 97.9; O2SAT 98
[2016-11-04] MEDS: OCTREOTIDE INJ 50 MCG/ML AMP SQ SCH ×2 (18:12→21:29)
[2016-11-04 20:00] VITALS: BP 174/116; PULSE 65; RESP 16; TEMP 96.6; O2SAT 95
[2016-11-04] MEDS ORDERED: ENALAPRILAT 2.5 MG/2 ML VIAL IV PUSH ONE (21:00)
[2016-11-04] MEDS: ACETAMINOPHEN 325 MG TAB PO PRN (21:40)
[2016-11-05] VITALS (7 sets, daily range): BP systolic 60–151; BP diastolic 37–105; PULSE 64–70; RESP 16–18; TEMP 96–98.4; O2SAT 95–98
[2016-11-05] MEDS: PYRIDOSTIGMINE BROMIDE 60 MG TAB PO SCH ×3 (05:33→21:34)
[2016-11-05] MEDS: OCTREOTIDE INJ 50 MCG/ML AMP SQ SCH ×3 (05:33→21:35)
[2016-11-05] MEDS: MIDODRINE 5 MG TAB PO SCH ×3 (05:33→17:11)
[2016-11-05] MEDS: FERROUS FUMARATE 325 MG TAB (106 MG ELEMENTAL IRON) PO SCH (08:02)
[2016-11-05] MEDS: SODIUM CHLORIDE 0.9% FLUSH 5 ML FLUSH FLUSH SCH ×2 (08:02→21:34)
[2016-11-05] MEDS: MULTIVITAMINS/MINERALS THERAPEUTIC TAB PO SCH (08:02)
[2016-11-05] MEDS: LACTOBACILLUS ACIDOPHILUS TAB PO SCH ×3 (08:02→17:10)
[2016-11-05] MEDS: metFORMIN HCL 500 MG TAB PO SCH ×2 (08:02→17:11)
[2016-11-05] MEDS: SODIUM CHLORIDE 1 GRAM TAB PO SCH ×2 (08:02→21:34)
[2016-11-05] MEDS: FOLIC ACID 1 MG TAB PO SCH (08:02)
[2016-11-05] MEDS: ENOXAPARIN SODIUM 40 MG/0.4 ML SYRINGE SQ SCH (08:03)
[2016-11-05] MEDS: FLUDROCORTISONE ACETATE 0.1 MG TAB PO SCH (08:03)
[2016-11-05 10:45] LABS: AUTOMATED NEUTROPHIL # 4.6 TH/MM3 (1.8-7.7); BASOPHIL % 0.6 % (0.0-2.0); EOSINOPHIL % 0.2 % (0.0-4.0); HEMO FLAGS DIFF FINAL; LYMPH % 28.3 % (9.0-44.0); LYMPHOCYTE # 2.1 TH/MM3 (1.0-4.8); MEAN CORPUSCULAR HEMOGLOBIN 25.9 PG (27.0-34.0); MEAN CORPUSCULAR HGB CONC 32.4 % (32.0-36.0); MONO % 7.3 % (0.0-8.0); NEUT % 63.6 % (16.0-70.0); PLATELET COUNT 227 TH/MM3 (150-450); RED BLOOD COUNT 4.25 MIL/MM3 (4.00-5.30); RED CELL DISTRIBUTION WIDTH 16.3 % (11.6-17.2); WHITE BLOOD COUNT 7.3 TH/MM3 (4.0-11.0)
[2016-11-05 10:56] LABS: ANION GAP 12 MEQ/L (5-15); AST (GOT) 12 U/L (15-37); BICARBONATE 26.2 MEQ/L (21.0-32.0); BLOOD UREA NITROGEN 20 MG/DL (7-18); CHLORIDE 104 MEQ/L (98-107); GLOMERULAR FILTRATION RATE 64 ML/MIN (>89); POTASSIUM 3.7 MEQ/L (3.5-5.1); SODIUM (NA) 142 MEQ/L (136-145)
[2016-11-05 10:59] LABS: ALKALINE PHOSPHATASE 103 U/L (45-117); ALT (GPT) 19 U/L (10-53); TOTAL BILIRUBIN ADULT 0.4 MG/DL (0.2-1.0)
--- NOTE | 2016-11-05 23:23 | HHI.PR ---
Subjective Remarks Patient still orthostatic as per RN patient could not do PT due to dizziness denies cp/sob Objective Vitals Vital Signs Date Time Temp Pulse Resp B/P Pulse Ox O2 Delivery O2 Flow Rate FiO2 11/05/16 20:00 98.0 67 18 126/85 98 11/05/16 16:00 98.4 70 16 92/64 97 60/37 11/05/16 14:40 71/45 11/05/16 12:00 96.0 64 16 65/48 98 11/05/16 08:00 96.6 65 16 151/105 98 11/05/16 05:54 96.7 67 18 102/68 96 11/05/16 00:17 96.0 67 18 127/85 95 I/O 11/04/16 11/04/16 11/04/16 11/05/16 11/05/16 11/05/16 07:00 15:00 23:00 07:00 15:00 23:00 Intake Total 240 ml 840 ml 720 ml Output Total 350 ml 650 ml 250 ml 1300 ml Balance -110 ml 190 ml -250 ml -580 ml Intake Oral 240 ml 840 ml 720 ml Output Urine Total 350 ml 650 ml 250 ml 1300 ml # Voids 4 # Bowel Movements 0 Result Diagram: 11/05/16 0935 11/05/16 0935 Imaging Last Impressions Brain MRI 10/16/16 0000 Signed Impressions: Service Date/Time: Sunday, October 16, 2016 14:58 - CONCLUSION: 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 Unremarkable posterior fossa. I do not see an etiology for the patient's persistent dizziness. Boom Philippe MD FACR Carotid Artery Ultrasound 10/11/16 0000 Signed Impressions: Service Date/Time: Tuesday, October 11, 2016 10:51 - CONCLUSION: 1. Mild visible plaque in the carotid arteries bilaterally. No hemodynamically significant stenosis identified. Vertebral artery flow antegrade bilaterally. Gordo Gibson MD Head CT 10/07/161918 Signed Impressions: Service Date/Time: Friday, October 07, 2016 20:30 - CONCLUSION: 1. No evidence of acute hemorrhage or mass effect. 2. Right high frontal encephalomalacia suggesting old infarction. Prior aneurysm procedure with metallic artifact in the supraclinoid region. Brian Morse MD Chest X-Ray 10/07/161918 Signed Impressions: Service Date/Time: Friday, October 07, 2016 20:05 - CONCLUSION: The lungs are clear. Brian Morse MD Objective Remarks GENERAL: Well-nourished, well-developed pleasant middle aged AA female patient in [facility]. SKIN: Warm and dry. No rash. HEAD: Normocephalic. Atraumatic. EYES: Pupils equal and round. No scleral icterus. No injection or drainage. ENT: No nasal bleeding or discharge. Mucous membranes pink and moist. NECK: Supple. Trachea midline. CARDIOVASCULAR: Regular rate and rhythm. S1, S2 noted. No murmur appreciated. RESPIRATORY: No accessory muscle use. Clear to auscultation. Breath sounds equal bilaterally. GASTROINTESTINAL: Abdomen soft, non-tender, nondistended. Normoactive bowel sounds x4. MUSCULOSKELETAL: No obvious deformities. Extremities without clubbing, cyanosis , or edema. NEUROLOGICAL: Awake and alert. No obvious cranial nerve deficits. Motor grossly within normal limits. 5/5 muscle strength in bilateral upper and lower extremities. Normal speech. Procedures Echo 10/08/2016. The cavity size was normal. Wall thickness was normal. Systolic function was normal. The estimated ejection fraction was 55%. Wall motion was normal; there were no regional wall motion abnormalities. Medications and IVs Current Medications Medications (Trade) Dose Ordered Sig/Willi Route Start Time Stop Time Status Last Admin (NS Flush) 2 ml UNSCH PRN FLUSH 10/07/16 21:30 (NS Flush) 2 ml BID FLUSH 10/08/16 09:00 11/05/16 21:34 (Zofran Inj) 4 mg Q6H PRN IVP 10/07/16 21:30 11/04/16 13:25 (Dulcolax Supp) 10 mg DAILY PRN [place] 10/07/16 21:30 (Tylenol) 650 mg Q6H PRN PO 10/07/16 21:30 11/04/16 21:40 (Pill Splitter) 1 ea UNSCH PRN OTHER 10/13/16 12:15 (Mestinon) 60 mg Q8HR PO 10/14/16 22:00 11/05/16 21:34 (Folate) 1 mg DAILY PO 10/15/16 09:00 11/05/16 08:02 (Theragran M Tab) 1 tab DAILY PO 10/15/16 09:00 11/05/16 08:02 (Hemocyte) 325 mg DAILY PO 10/15/16 09:00 11/05/16 08:02 (Glucophage) 500 mg BIDPC PO 10/14/16 19:15 11/05/16 17:11 (Sodium Chloride) 1 gm BID PO 10/16/16 21:00 11/05/16 21:34 (Lovenox Inj) 40 mg DAILY SQ 10/17/16 09:00 11/05/16 08:03 (Lactinex) 1 tab TID PO 10/21/16 09:00 11/05/16 17:10 (Lomotil Tab) 1 tab Q6H PRN PO 10/22/16 16:00 (Proamatine) 10 mg TID@,,17 PO 10/30/16 07:00 11/05/16 17:11 (Florinef) 0.3 mg DAILY PO 11/04/16 09:00 11/05/16 08:03 (SandoSTATIN INJ) 50 mcg TIDAC SQ 11/06/16 08:00 Urinary Catheter: No Vascular Central Line Catheter: No A/P Problem List: (1) Orthostatic hypotension ICD Code: I95.1 Status: Acute (2) Syncope ICD Code: R55 Status: Resolved (3) ALFONSO (acute kidney injury) ICD Code: N17.9 Status: Resolved (4) Schizophrenia ICD Code: F20.9 Status: Chronic (5) UTI (urinary tract infection) ICD Code: N39.0 Status: Resolved (6) Prediabetes ICD Code: R73.03 Status: Chronic (7) Microcytic anemia ICD Code: D50.9 Status: Acute Assessment and Plan (1) Orthostatic hypotension ICD Code: I95.1 Status: Acute Plan: Ms. Packer is a 61-year-old female with a PMH of Schizophrenia was brought to the ER by [facility] [employer] with whom the patient lives secondary to multiple falls. - Positive orthostatic vitals signs on admission, secondary to dehydration. BP improved with hydration. - However, orthostatics remains positive but slowly improving since starting steroids. Now with episodic hypertension associated with headache usually in the morning but by noon time BP droped and patient complains of transient dizziness. Will dC IV fluids. - Status post neurology evaluation. Consulted cardiology secondary to persistent orthostatic hypotension. Trial caffeine. Consider octreotide - Echo essentially normal with EF 55%. - EKG showed NSR with 1st degree AV block which is typically a benign finding. - Continue salt tablets, compression stockings and abdominal binder. - Relative Adrenal insufficiency. Cortisol 12 despite hypotension will continue IV hydrocortisone status post Decadron. - 11/02 Continue Hydrocortisone taper - Decrease dose to once a day. Patient still with orthostatic hypotension - Increase Fludrocortisone to 0.2 mg daily. - 11/03 Patient still orthostatic. Increase fludrocortisone to 0.3 mg by mouth daily. Discontinue hydrocortisone as the patient is on fludrocortisone. I will start on Octreotide if still orthostatic. - 11/04 Orthostatsis improving. Patient not dizzy when sitting and dizziness upon standing is much improved. Will give a trial of Octreotide. - 11/05 Persitent orthostasis and dizziness. Orthostatic hypotension seems to be slightly improved. Octreotide to be given before meals since it seems that patient gets hypotensive after eating. Continue to monitor vital signs. (2) Syncope Plan: likely vasovagal secondary to dehydration/orthostatic hypotension. CT Head w/ no acute findings. No further syncopal episodes. (3) ALFONSO (acute kidney injury) Plan: Patient presented with a creatinine of 1.4, acute kidney injury after IV fluid administration. Continue to monitor BUN/creatinine on strict I's and O's. (4) Schizophrenia Plan: Per report, pt recently d/c'd from [facility] after 1yr hospitalization for Schizophrenia, currently under the care of local [facility]. Not on antipsychotic medications per review of home meds. (5) UTI (urinary tract infection) Plan: received Cipro. Urine cx mixed normal corbin. (6) Prediabetes Plan: Hemoglobin A1c 6.0. Continue metformin 500 mg by mouth twice a day. Blood sugar seems to be stable. Continue as is it with insulin NovoLog. (7) Microcytic anemia Plan: Iron studies normal with slightly low percent saturation. Total iron 55 , percent saturation to 286, percent saturation 19.3 and ferritin 177. Hemoccult negative. Continue oral iron. Discharge Planning Discharge Pending improvement of orthostatic hypotension and symptoms. Patient will need rehabilitation. Problem Qualifiers (1) Syncope: Qualified Code: R55 - Syncope, unspecified syncope type (2) Schizophrenia: Qualified Code: F20.9 - Schizophrenia, unspecified type Lawrence Jacques MD Nov 05, 2016 23:23
[2016-11-06] VITALS: BP 148/99; PULSE 71; RESP 17; TEMP 98.2; O2SAT 99
[2016-11-06 04:00] VITALS: BP 94/67; PULSE 79; RESP 18; TEMP 97.9; O2SAT 97
[2016-11-06] MEDS: PYRIDOSTIGMINE BROMIDE 60 MG TAB PO SCH ×2 (05:45→13:01)
[2016-11-06] MEDS: MIDODRINE 5 MG TAB PO SCH ×2 (05:48→13:01)
[2016-11-06 07:14] LABS: HEMATOCRIT 33.2 % (35.0-46.0); MEAN CORPUSCULAR HEMOGLOBIN 25.5 PG (27.0-34.0); MEAN CORPUSCULAR HGB CONC 31.9 % (32.0-36.0); PLATELET COUNT 250 TH/MM3 (150-450); RED BLOOD COUNT 4.15 MIL/MM3 (4.00-5.30); RED CELL DISTRIBUTION WIDTH 16.5 % (11.6-17.2); REVIEW FLAG FINAL; WHITE BLOOD COUNT 6.5 TH/MM3 (4.0-11.0)
[2016-11-06 07:44] LABS: BICARBONATE 26.6 MEQ/L (21.0-32.0)
[2016-11-06 08:00] VITALS: BP 138/87; PULSE 100; RESP 18; TEMP 97.6; O2SAT 99
[2016-11-06] MEDS: OCTREOTIDE INJ 50 MCG/ML AMP SQ SCH ×2 (08:26→13:01)
[2016-11-06] MEDS: SODIUM CHLORIDE 1 GRAM TAB PO SCH (08:28)
[2016-11-06] MEDS: LACTOBACILLUS ACIDOPHILUS TAB PO SCH ×2 (08:28→13:01)
[2016-11-06] MEDS: FOLIC ACID 1 MG TAB PO SCH (08:28)
[2016-11-06] MEDS: SODIUM CHLORIDE 0.9% FLUSH 5 ML FLUSH FLUSH SCH (08:28)
[2016-11-06] MEDS: FLUDROCORTISONE ACETATE 0.1 MG TAB PO SCH (08:28)
[2016-11-06] MEDS: metFORMIN HCL 500 MG TAB PO SCH (08:28)
[2016-11-06] MEDS: MULTIVITAMINS/MINERALS THERAPEUTIC TAB PO SCH (08:28)
[2016-11-06] MEDS: FERROUS FUMARATE 325 MG TAB (106 MG ELEMENTAL IRON) PO SCH (08:29)
[2016-11-06] MEDS: ENOXAPARIN SODIUM 40 MG/0.4 ML SYRINGE SQ SCH (08:29)
[2016-11-06] MEDS ORDERED: POTASSIUM CHLORIDE 10 MEQ CONTROLLED RELEASE TAB PO ONE (09:45)
[2016-11-06 12:00] VITALS: BP_SYST 116; BP_SYST 90; BP_DIAS 74; BP_DIAS 75; PULSE 95; RESP 20; TEMP 97; O2SAT 98
[2016-11-06] MEDS ORDERED: FLUD.1 PO (13:54)
[2016-11-06] MEDS ORDERED: HEMO324T PO (13:54)
[2016-11-06] MEDS ORDERED: OCTR50IN SQ (14:02)
[2016-11-06] MEDS ORDERED: PYRI60 PO (14:02)
[2016-11-06] MEDS ORDERED: METF500 PO (14:02)
[2016-11-06] MEDS ORDERED: SODI1TAB PO (14:02)
[2016-11-06] MEDS ORDERED: BISA10R PR (14:02)
[2016-11-06] MEDS ORDERED: MIDO5TAB PO (14:02)
--- NOTE | 2016-11-06 14:03 | HHI.DCPOC ---
Discharge Care Plan Diagnosis: (1) Prediabetes (2) Orthostatic hypotension (3) Loose stools (4) 1st degree AV block (5) ALFONSO (acute kidney injury) (6) UTI (urinary tract infection) (7) Microcytic anemia (8) Syncope (9) Schizophrenia Goals to Promote Your Health * To prevent worsening of your condition and complications * To maintain your health at the optimal level Directions to Meet Your Goals Take your medications as prescribed Follow your dietary instruction Follow activity as directed Keep your appointments as scheduled Take your immunizations and boosters as scheduled If your symptoms worsen call your PCP, if no PCP go to Urgent Care Center or Emergency Room Smoking is Dangerous to Your Health. Avoid second hand smoke Call the 24-hour hour crisis hotline for domestic abuse at Lawrence Jacques MD Nov 06, 2016 14:03
--- NOTE | 2016-11-06 14:07 | HHI.DS ---
Discharge Summary Admission Date Oct 11, 2016 at 13:28 Discharge Date: Nov 06, 2016 Admitting Diagnosis Syncope & Collapse, Hypotension (1) Orthostatic hypotension ICD Code: I95.1 Diagnosis: Principal (2) Syncope ICD Code: R55 Diagnosis: Principal (3) ALFONSO (acute kidney injury) ICD Code: N17.9 Diagnosis: Principal (4) Schizophrenia ICD Code: F20.9 Diagnosis: Secondary (5) UTI (urinary tract infection) ICD Code: N39.0 Diagnosis: Principal (6) Prediabetes ICD Code: R73.03 Diagnosis: Principal (7) Microcytic anemia ICD Code: D50.9 Diagnosis: Principal Procedures Echo 10/08/2016. The cavity size was normal. Wall thickness was normal. Systolic function was normal. The estimated ejection fraction was 55%. Wall motion was normal; there were no regional wall motion abnormalities. Brief History - From Admission This is a 61-year-old female with a PMH of Schizophrenia was brought to the ER by Home Health Driver License Agent with whom the patient lives secondary to multiple falls. History limited at this time as Caretakers unavailable and pt poor historian, however per report, pt recently discharged from [facility] after 1yr hospitalization for Schizophrenia to the care of a local [facility]. Since her time there, pt has had multiple falls and syncopal episodes, 6 falls today alone. Pt without complaints at this time. On arrival , BP 74/42, HR 66, O2 sat 99% on RA, Afebrile. Orthostatic Vital Signs positive , supine BP 111/63, HR 60, sitting BP 86/61, HR 63, standing BP not measurable via cuff. S/p 2L IVF in ER, BP now improved to 126/84, HR 69. WBC normal. Hgb 10.0. Creatinine 1.45, no previous labs for comparison. UA trace LE, mild bacteruria. CBC/BMP: 11/06/16 0603 11/06/16 0603 Significant Findings Laboratory Tests Test 11/05/16 11/06/16 09:35 06:03 Hemoglobin 11.0 GM/DL 10.6 GM/DL (11.6-15.3) (11.6-15.3) Hematocrit 34.0 % 33.2 % (35.0-46.0) (35.0-46.0) Mean Corpuscular Hemoglobin 25.9 PG 25.5 PG (27.0-34.0) (27.0-34.0) Blood Urea Nitrogen 20 MG/DL (7-18) 21 MG/DL (7-18) Creatinine 1.06 MG/DL (0.50-1.00) Estimat Glomerular Filtration 64 ML/MIN (>89) 81 ML/MIN (>89) Rate Random Glucose 167 MG/DL 111 MG/DL (74-106) (74-106) Aspartate Amino Transf 12 U/L (15-37) (AST/SGOT) Albumin 3.3 GM/DL (3.4-5.0) Mean Corpuscular Hemoglobin 31.9 % Concent (32.0-36.0) Potassium Level 3.0 MEQ/L (3.5-5.1) Imaging Last Impressions Brain MRI 10/16/16 0000 Signed Impressions: Service Date/Time: Sunday, October 16, 2016 14:58 - CONCLUSION: 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 Unremarkable posterior fossa. I do not see an etiology for the patient's persistent dizziness. Boom Philippe MD FACR Carotid Artery Ultrasound 10/11/16 0000 Signed Impressions: Service Date/Time: Tuesday, October 11, 2016 10:51 - CONCLUSION: 1. Mild visible plaque in the carotid arteries bilaterally. No hemodynamically significant stenosis identified. Vertebral artery flow antegrade bilaterally. Gordo Gibson MD Head CT 10/07/161918 Signed Impressions: Service Date/Time: Friday, October 07, 2016 20:30 - CONCLUSION: 1. No evidence of acute hemorrhage or mass effect. 2. Right high frontal encephalomalacia suggesting old infarction. Prior aneurysm procedure with metallic artifact in the supraclinoid region. Brian Morse MD Chest X-Ray 10/07/161918 Signed Impressions: Service Date/Time: Friday, October 07, 2016 20:05 - CONCLUSION: The lungs are clear. Brian Morse MD PE at Discharge GENERAL: Alert, NAD. SKIN: Warm and dry. HEAD: Normocephalic. EYES: No scleral icterus. No injection or drainage. NECK: Supple, trachea midline. No JVD or lymphadenopathy. CARDIOVASCULAR: Regular rate and rhythm without murmurs, gallops, or rubs. RESPIRATORY: Breath sounds equal bilaterally. No accessory muscle use. GASTROINTESTINAL: Abdomen soft, non-tender, nondistended. MUSCULOSKELETAL: No cyanosis but with trace leg edema. Good peripheral pulses. BACK: Nontender without obvious deformity. No CVA tenderness. Pt update on day of discharge The patient states that dizziness is much improved and almost resolved. RN states that the patient was able to sit and stand up with physical therapy and there were no complaints of dizziness. Patient denies chest pain, shortness of breath. Hospital Course Plan: Ms. Packer is a 61-year-old female with a PMH of Schizophrenia was brought to the ER by Home Health Driver License Agent with whom the patient lives secondary to multiple falls. - Positive orthostatic vitals signs on admission, secondary to dehydration. BP transiently improved with hydration. - However, orthostatics remains positive but slowly improving since starting steroids. Now with episodic hypertension associated with headache usually in the morning but by noon time BP droped and patient complains of transient dizziness. Will dC IV fluids. - Status post neurology evaluation. Consulted cardiology secondary to persistent orthostatic hypotension. Trial caffeine. Consider octreotide - Echo essentially normal with EF 55%. - EKG showed NSR with 1st degree AV block which is typically a benign finding. - Continue salt tablets, compression stockings and abdominal binder. - Relative Adrenal insufficiency. Cortisol 12 despite hypotensiontreated with hydrocortisone. - 11/02 Continue Hydrocortisone taper - Decrease dose to once a day. Patient still with orthostatic hypotension - Increase Fludrocortisone to 0.2 mg daily. - 11/03 Patient still orthostatic. Increase fludrocortisone to 0.3 mg by mouth daily. Discontinue hydrocortisone as the patient is on fludrocortisone. I will start on Octreotide if still orthostatic. - 11/04 Orthostatsis improving. Patient not dizzy when sitting and dizziness upon standing is much improved. Will give a trial of Octreotide. - 11/05 Persitent orthostasis and dizziness. Orthostatic hypotension seems to be slightly improved. Octreotide to be given before meals since it seems that patient gets hypotensive after eating. Continue to monitor vital signs. - 11/06 Orthostatsis much improved. Continue Midodrine, fluodrocortisone, pyridostigmine and octreotide to be given 30 minutes prior to meals. (2) Syncope Plan: likely vasovagal secondary to dehydration/orthostatic hypotension. CT Head w/ no acute findings. No further syncopal episodes. (3) ALFONSO (acute kidney injury) Plan: Resolved after IVF administration. Patient presented with a creatinine of 1.4, acute kidney injury after IV fluid administration. Continue to monitor BUN/creatinine on strict I's and O's. (4) Schizophrenia Plan: Per report, pt recently d/c'd from [facility] after 1yr hospitalization for Schizophrenia, currently under the care of local Healthcare Associate. Not on antipsychotic medications per review of home meds. (5) UTI (urinary tract infection) Plan: received Cipro. Urine cx mixed normal corbin. (6) Prediabetes Plan: Hemoglobin A1c 6.0. started on oral metformin. But sugars remained stable. Patient was covered with necessary with insulin NovoLog. (7) Microcytic anemia Plan: Iron studies normal with slightly low percent saturation. Total iron 55 , percent saturation to 286, percent saturation 19.3 and ferritin 177. Hemoccult negative. Continue oral iron. Pt Condition on Discharge: Stable Discharge Disposition: Discharge to SNF Discharge Time: > 30 minutes Discharge Instructions DIET: Follow Instructions for: Diabetic Diet Additional Diet Instructions: Please give small and frequent meals - Octreotide needs to be given 30 minutes prior to breakfast, lunch and dinner Activities you can perform: See Additionl Instruction Other Activity Instructions: OBB and ambulation with assistance only Follow up Referrals: PCP Follow-up - 2-3 Days New Medications: Walker Rolling/GetGo (Walker Rolling/GetGo) 1 Mis Mis 1 EA .ROUTE DIRECTED #1 EA Bisacodyl Supp (Bisac-Evac Supp) 10 Mg Supp 10 MG ND DAILY PRN CONSTIPATION #30 SUPP Ferrous Fumarate (Hemocyte) 324 Mg Tab 325 MG PO DAILY NS #30 TAB Fludrocortisone (Fludrocortisone) 0.1 Mg Tab 0.3 MG PO DAILY Blood Pressure Management #30 TAB Metformin (Glucophage) 500 Mg Tab 500 MG PO BIDPC Blood Sugar Management #60 TAB Midodrine (Midodrine) 5 Mg Tab 10 MG PO TID@07,12,17 postprandial hypotension #90 TAB Octreotide Inj (Octreotide Inj) 50 Mcg/Ml Inj 50 MCG SQ TIDAC Give 30 minutes prio to meals postprandia hypotension #1 INJECTION Pyridostigmine (Pyridostigmine) 60 Mg Tab 60 MG PO Q8HR orthostatic hypotension #90 TAB Sodium Chloride (Sodium Chloride) 1 Gm Tab 1 GM PO BID orthostatic hypotension #62 TAB Continued Medications: Ascorbic Acid (Bulk) (Ascorbic Acid) 1 Pow Pow 500 MG .ROUTE Calcium Carbonate-Vitamin D (Oscal 500/200 D-3) 500-200 Mg-Unit Tab 1 TAB PO BID Calcium Supplement Ref 0 TAB Docusate Sodium (Colace) 100 Mg Cap 100 MG PO DAILY Constipation #60 Ref 0 CAP Folic Acid (Folic Acid) 5 Mg Cap 1 MG PO DAILY Nutritional Supplement Ref 0 CAP Multiple Vitamins W/ Minerals (Thera M Plus) 1 Tab 1 TAB PO DAILY Nutritional Supplement Ref 0 TAB Polyethylene Glycol 3350 Powder (Miralax Powder) 17 Gm Powd 17 GM PO DAILY Mix and dissolve one measuring cap-ful (17 grams) in water or juice. Constipation #1 Ref 0 BOTTLE Discontinued Medications: Diphenhydramine (Benadryl Allergy) 25 Mg Tab 50 MG PO Q6H PRN ALLERGIES Ref 0 TAB Ferrous Gluconate (Fergon) 240 Mg Tab 324 MG PO DAILY Take on an empty stomach 1 hr before or 2 hr after meals Nutritional Supplement #30 Ref 0 TAB Lawrence Jacques MD Nov 06, 2016 14:07
== END 2016-11-06 15:34 | DRG 312 ==
LOC: NEPC 18:48 → NEDA 21:23 → NEPFCDU 23:11 → OBSVTOIN 10-11 13:28 → HOCB 10-13 22:00
PROVIDERS: ADMIT Hospitalist; ATTEND Hospitalist
DX: I95.1 Orthostatic hypotension (principal); N17.9 Acute kidney failure, unspecified; G93.89 Other specified disorders of brain; E27.40 Unspecified adrenocortical insufficiency; N39.0 Urinary tract infection, site not specified; E11.65 Type 2 diabetes mellitus with hyperglycemia; E86.0 Dehydration; F20.9 Schizophrenia, unspecified; I44.0 Atrioventricular block, first degree; D50.9 Iron deficiency anemia, unspecified; I10 Essential (primary) hypertension; R03.0 Elevated blood-pressure reading, without diagnosis of hypertension; R29.6 Repeated falls; R19.7 Diarrhea, unspecified; Z88.0 Allergy status to penicillin
CPT/HCPCS: 70450; 70553; 71010; 76937; 80048; 80053; 81001; 82272; 82533; 82607; 82728; 82948; 83020; 83036; 83540; 83550; 83735; 84484; 85025; 85027; 87086; 87493; 93005; 93225; 93226; 93306; 93880; 96360; A9579; G0378; G8987-GP; G8988-GP; J0744; J1100; J1650; J1720; J1815; J2354; J2405; J3475; J3480; J7030